=== PATIENT | female | born 1980 | race Caucasian/White ===

== ENCOUNTER 2021-08-14 06:53 | Inpatient (IN) | payer OTHER, SELFPAY ==
[2021-08-14] VITALS (10 sets, daily range): BP systolic 115–148; BP diastolic 68–83; PULSE 72–91; RESP 16–18; TEMP 36.5–37.3; O2SAT 98–99; BMI 25.2
--- NOTE | 2021-08-14 04:02 | NURSING ---
pandemic emergency documentation
--- NOTE | 2021-08-14 04:21 | HP.PCM.HOS_ITS ---
HPI - General General Date of Admission: 08/14/21 Date of Service: 08/14/21 Chief Complaint: Abdominal pain HPI Narrative RAD ELI, is a 40 F with previous medical history who presents to emergency department with a 3-week history of progressively worsening lower abdominal pain that radiates to her groin and rarely to her back. The pain is constant aching with intermittent stabbing pain. The pain increases with her menstruation. Of note patient is currently menstruating. Her previous menstruation was about 2 weeks ago. Associated with her symptoms is nausea; vomiting and diarrhea. Further, she has anorexia; fatigue; weakness; and some mild dyspnea anytime she stands up or sit down. At outside hospital patient was noted to have electrolyte derangements of hypokalemia and elevated creatinine that improved with IV hydration and potassium supplementation. Also she was given magnesium at outside hospital. Her lipase was elevated at 20,000. Patient was noted to have elevated QTC at outside hospital. Her Covid test came back to be positive as at outside hospital. CT of abdomen and pelvis showed pancreatitis with a pelvic mass. Patient reports that she has known of the pelvic mass for the past 2 years but she was waiting for Covid pandemic to be done to seek further care. Patient was transferred from [place] emergency department. Emergency department doctor discussed the case with CONE FORMER doctor computer numerical control machinist at [facility] who was prepared to see patient in consult. [facility] Medical History Kidney stones Pancreatitis Smoker Home Medications multivitamin 1 cap PO DAILY 08/14/21 [History Last Taken Unknown] Allergy/AdvReac Type Severity Reaction Status Date / Time sulfamethoxazole Allergy Other Verified 08/14/21 04:00 [From Bactrim] trimethoprim [From Bactrim] Allergy Other Verified 08/14/21 04:00 cefaclor [From Ceclor] AdvReac Hives Verified 08/14/21 04:00 Family History Other Heart disease Hypertension Surgical History (Updated 08/14/21 @ 04:[address] Keith Marroquin MD) H/O lumpectomy History of tonsillectomy Social History Smoking Status: Current every day smoker tobacco type: cigarettes ROS ROS Narrative Constitutional: Denies fever, chills, fatigue, anorexia and change in weight Eyes: Denies blurry vision, change in eye color, change in vision, discharge from eye(s), double vision, erythema, eye pain, loss of vision or other HEENT: Denies abnormal hearing, dysphagia, ear pain, epistaxis, headache(s), hearing loss, nasal congestion, nasal discharge, post nasal drip, sinus pressure, sore throat or other Cardiovascular: Denies chest pain or palpitations. Denies dyspnea on exertion, orthopnea and paroxysmal nocturnal dyspnea Respiratory/Chest: Denies cough, excessive phlegm production, shortness of breath with exertion and wheezing Gastrointestinal: Reports abdominal pain, nausea; vomiting and diarrhea. Reports melena. Denies dyspepsia, hematemesis, hematochezia. Genitourinary: Denies burning urination, difficulty urinating, dysuria, hematuria, nocturia, urinary frequency, urinary hesitancy, urinary incontinence, urinary urgency or other Musculoskeletal: Denies arthralgias, back pain, joint pain, joint stiffness, joint swelling, myalgias, neck pain or other Neurologic: Denies abnormal gait, abnormal speech, confusion, disequilibrium, dizziness, focal weakness, headache(s), numbness, paresthesias, seizure-like activity, seizures, syncope, tingling, tremor(s) or other Psychiatric: Denies anxiety, depression, homicidal ideation, suicidal ideation or other Endocrinology: Denies change in body appearance, cold intolerance, excessive sweating, heat intolerance, polydipsia, polyuria or other Hematologic/Lymphatic: Denies anemia, easy bleeding, easy bruising, lymphadenopathy or other Integumentary: Denies rashes Allergic/Immunologic: Denies rhinitis, hives, eczema, asthma or other Vital Signs Vital Signs Vital Signs: Weight Weight: 72.121 kg Body Mass Index (BMI) 25.2 Physical Exam Narrative Physical exam: General: Well-nourished, well-developed. Head: Normocephalic, atraumatic, no tenderness Eyes: PERRLA, EOMI ENT, no trauma, moist mucous membranes, no rhinorrhea Neck: Nontender, full range of motion, no spinal tenderness, deformities, step- off CVS: Regular rate and rhythm. S1-S2 present. No murmur, gallop or rub. Respiratory : clear to auscultation bilaterally, chest wall nontender, no wheezing Abdomen: Soft, nontender, nondistended, normal bowel sounds, no masses : Deferred Back: Nontender, no CVA tenderness, no midline spinal tenderness, deformities, step-offs Extremities: Nontender full range of motion, no trauma Skin: Normal color, no trauma, abrasions Neuro: Alert, oriented, cranial nerves II through XII grossly intact. Psychiatry: Normal mood. Normal affect. Not depressed. Not anxious. Assessment & Plan Assessment/Plan (1) Gastroenteritis: (2) Pancreatitis: QUALIFIERS: Acute pancreatitis complication: no infection or necrosis Chronicity: acute Pancreatitis type: other Qualified Code(s): K85.80 - Other acute pancreatitis without necrosis or infection (3) Hypokalemia: (4) JOSEPH (acute kidney injury): (5) Pelvic mass: (6) COVID-19: PLAN: Acute gastroenteritis Etiology unclear, rule out Covid as patient tested positive for Covid-19. Supportive treatment with IV fluids. Pancreatitis Patient with elevated lipase of [address] scan finding of acute pancreatitis. Received IV fluid at outside hospital. Lactated Ringer's ordered. Morphine for pain. Will check lipase and do ultrasound of gallbladder. N.p.o. for ultrasound. Hypokalemia Potassium was replaced at outside hospital. Originally reportedly potassium was 1.3 but it improved to 2.3. CMP ordered. Diarrhea with melena Enteropathogenic panel; Giardia lamblia antigen ordered; stool lactoferrin ordered. Supportive treatment with IV fluids. Occult stools ordered. JOSEPH Patient with elevated creatinine at outside hospital which improved with IV fluids. Lactated Ringer's ordered. Trend CMP. COVID-19 infection Patient not hypoxic. Clinical monitoring. Prolonged QT Patient with QT at outside hospital. Monitor on telemetry. Avoid QTC prolongation drugs. Trend CMP. Check magnesium. Pelvic mass CONE FORMER consult. Tobacco abuse Counseled Nicotine patch prescribed DVT prophylaxis: Subcutaneous heparin ordered Charges/Coding Visit Charges Inpatient E&M: 73368 Init Hosp L3
[2021-08-14] MEDS: Morphine 2 MG/ML Syringe IV ×6 (04:42→21:32)
[2021-08-14] MEDS: Lactated Ringers 1,000 ML 150 ML IV ×4 (04:45→21:32)
--- NOTE | 2021-08-14 04:47 | US_ITS ---
STUDY: ABDOMINAL ULTRASOUND - RIGHT UPPER QUADRANT REASON FOR VISIT: Female, 40 years old Pancreatitis -- Portable - Patient has covid TECHNIQUE: Ultrasound evaluation of the right upper quadrant was performed with real-time and static casillas-scale imaging. TECHNICAL QUALITY: Adequate. COMPARISON: None. FINDINGS: Liver: The liver is slightly enlarged and measures 18.7 cm. There is normal echogenicity of the liver. The bile ducts are mildly dilated. There is hepatic color flow. The direction of portal flow is hepatopetal. There is no demonstrated mass lesion. Gallbladder: There is a distended gallbladder. The gallbladder wall measures 2.8 mm. There is a positive sonographic Rodriguez''s sign. There is mild pericholecystic fluid. There are no gallstones. There is a 5 mm polyp. Common Bile Duct (C.B.D.): The common bile duct measures 3.2 mm. Pancreas: Normal size of the head, body and tail of the pancreas. There is increased echogenicity of the pancreas. There is no demonstrated pancreatic mass or cyst. Right Kidney: Normal size of the right kidney. The right kidney measures 12.1 cm x 5.9 cm x 5.1 cm. Normal renal cortex. The right cortex measures 1.6 cm. There is no demonstrated renal mass or cyst. There is mild hydronephrosis of the right kidney. I suspect 2 nonobstructive intrarenal calculi. The larger measures 5 mm. US/Gallbladder IMPRESSION: The gallbladder is distended. Minimal pericholecystic fluid. Small gallbladder polyp. No evidence of gallstones. Mild degree of dilated central intrahepatic biliary ducts. Electronically Signed: Gilbert Murcia MD at 14:03 EDT , Service support ,
[2021-08-14 07:51] LABS: Absolute Lymphocyte Count 0.81 X10^3/uL (0.83-4.51); Absolute Neutrophil Count 13.7 X10^3/uL (2.0-7.7); Basophil# 0.03 X10^3/uL; Basophil% 0.2 % (0-1); Eosinophil# 0.04 X10^3/uL; Eosinophils% 0.3 % (0-5); Hematocrit 30.8 % (37-47); Hemoglobin 11.5 g/dL (12.0-15.0); Lymphocyte # 0.81 X10^3/ul (0.83-4.51); Lymphocyte % 5.2 % (19-41); Mean Corp Hgb Conc 37.3 g/dL (32-36); Mean Corpuscular Hgb 30.8 pg (27.0-32.0); Mean Corpuscular Volume 82.6 fL (81-99); Mean Platelet Vol. 8.7 fl (6.2-12.0); Monocyte# 1.01 X10^3/uL; Monocyte% 6.4 % (0-10); NRBC Flagged by Analyzer 0 % (0-5); Neutrophil # 13.73 X10^3/uL (2.7-7.7); Neutrophil % 87.3 % (47-70); Platelet Count 417 K/mm3 (150-450); RBC Distribution Width CV 12.6 % (11.6-14.6); RBC Distribution Width SD 37.9 fl (35.1-43.9); Red Blood Count 3.73 M/mm3 (4.2-5.4); White Blood Count 15.7 K/mm3 (4.4-11.0)
[2021-08-14] MEDS: NYSTATIN 500,000 UNIT/5 ML UDC 500000 UNIT PO ×4 (08:22→21:32)
[2021-08-14] MEDS: 0.9% Saline Lock 10 ML Syringe IV ×3 (08:23→18:13)
[2021-08-14 08:30] LABS: ALB/GLOB Ratio 0.7 RATIO (0.9-2.4); AST(SGOT) 19 U/L (15-37); Alanine Aminotransfer ALT/SGPT 11 U/L (13-56); Albumin, Serum 2.5 g/dL (3.2-5.0); Alkaline Phosphatase 74 U/L (45-117); Anion Gap 13 (5-15); BUN 62 mg/dL (7-18); BUN/Creat Ratio 81.2 RATIO (10-20); Calcium,Total 7.2 mg/dL (8.5-10.1); Chloride 111 mmol/L (98-107); Cholesterol 68 mg/dL (200); Creatinine, Serum 0.76 mg/dL (0.55-1.02); EST Glomerular Filtration Rate 89 mL/min (>60); Est Glom Filt Rate - Afr Amer 107 mL/min (>60); Estimated Creatinine Clearance 92.11 ml/min; Globulin 3.7 g/dL (2.2-4.2); Glucose 69 mg/dL (74-106); High Density Lipoprotein 12 mg/dL; Potassium 2.3 mmol/L (3.5-5.1); Protein, Total 6.2 g/dL (6.4-8.2); Sodium Level 137 mmol/L (136-145); Triglycerides 142 mg/dL; Very Low Density Lipoprotein 28 mg/dL (5-40)
[2021-08-14] MEDS: Potassium Chloride 10mEq/100mL 10 MEQ/100 ML IV.SOLN. 100 MEQ IV BOLUS ×4 (10:27→15:01)
--- NOTE | 2021-08-14 10:28 | CASEMGMT ---
TRISH BAZAN assessment: Initial transition planning/care coordination assessment. TRISH BAZAN introduced self and role at [facility], pt voices understanding and consents to assessment. Pt is on room air in no distress and speaks in full sentences. Pt is A/Ox4 and answers all questions appropriately. Care providers, pharmacy, and demographics verified/updated. Presentation: Pt was direct admit from [place] ED for COVID and abd pain w/ known mass Admitting dx: Gastroenteritis, pancreatitis, COVID, abd mass x2 years PCP: Pt states does not have PCP, list provided Specialists: Pt states no specialists. [facility]erred [facility]acy: [facility] Insurance: MMO Prescription Benefit: MMO Living Will/HPOA: Pt does not have LW/HPOA and declines AD info. LNOK: Ector Bowling, sig other; Warren Patel, mother Living Arrangements: Pt states lives with Ector Bowling, sig other, in a home with stairs and states no concerns at home. Pt is independent with ADL's. Transportation: Pt drives self and states no transportation concerns. DME/HHC: Pt states no current DME or need for any further DME. Pt states no hx of HHC or SNF in the past. Pt states no concerns with going home at time of discharge. 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 Pt states smokes about a pack of cigarettes daily and rarely drinks ETOH. Pt states no further concerns/needs. CM to follow for any further discharge planning/needs. Advised pt to ask for CM if any further questions/concerns/needs arise, voices understanding. Pt Goal: Home Plan: [place] TRISH BAZAN
[2021-08-14 12:12] LABS: HIV - WCH Non-Reactive (Nonreactive)
--- NOTE | 2021-08-14 12:25 | PCM.PN.HOSP ---
Subjective Subjective Patient is a 40-year-old lady with known history of a pelvic mass for over 2 years. Who presented with a 3-week history of progressive lower abdominal pain with radiation to her back. Apparently did complain of nausea vomiting as well as diarrhea. CT of the abdomen obtained at an outside hospital did demonstrate a pelvic mass in addition to features consistent with pancreatitis. Her SARS-CoV-2 assay obtained in the ED came back positive admitted to regular nursing floor for further management Objective Data Objective Data Vital Signs: Vital Signs Temp Pulse Resp BP Pulse Ox 98.8 F 77 18 133/77 H 98 08/14/21 08:37 08/14/21 08:37 08/14/21 08:37 08/14/21 08:37 08/14/21 08:37 Oxygen Delivery Method Room Air Weight: 72.121 kg Body Mass Index (BMI) 25.2 Intake & Output: Intake and Output for Last 24 Hours 08/12/21 08/13/21 08/14/21 23:59 23:59 23:59 Intake Total 857.5 / 857.5 Balance 857.5 / 857.5 Lab / Micro Data Result Diagrams: 08/14/21 07:40 08/14/21 07:40 Labs: Laboratory Results - last 24 hr 08/14/21 07:40: HIV 1&2 Antibody Non-Reactive 08/14/21 07:40: WBC 15.7 H, RBC 3.73 L, Hgb 11.5 L, Hct 30.8 L, MCV 82.6, MCH 30.8, MCHC 37.3 H, RDW Std Deviation 37.9, RDW Coeff of Nick 12.6, Plt Count 417, MPV 8.7, Immature Gran % (Auto) 0.600, Neut % (Auto) 87.3 H, Lymph % (Auto) 5.2 L, [place] % (Auto) 6.4, Eos % (Auto) 0.3, Baso % (Auto) 0.2, Absolute Neuts (auto) 13.7 H, Absolute Lymphs (auto) 0.81 L, Nucleated RBC % 0 08/14/21 07:40: Sodium 137, Potassium 2.3 L*, Chloride 111 H, Carbon Dioxide 13.0 L, Anion Gap 13, BUN 62 H, Creatinine 0.76, Estim Creat Clear Calc 92.11, Est GFR (MDRD) Af Amer 107, Est GFR (MDRD) Non-Af 89, BUN/Creatinine Ratio 81.2 H, Glucose 69 L, Calcium 7.2 L, Total Bilirubin 0.50, AST 19, ALT 11 L, Alkaline Phosphatase 74, Total Protein 6.2 L, Albumin 2.5 L, Globulin 3.7, Albumin/Globulin Ratio 0.7 L, Triglycerides 142, Cholesterol 68, LDL Cholesterol 28, VLDL Cholesterol 28, HDL Cholesterol 12 L Physical Exam Narrative GENERAL: cooperative HEENT: Atraumatic; oral thrush EYES; Anicteric, Normal Conjunctiva NECK; supple, normal thyroid, RESPIRATORY: Diminished to auscultation CARDIOVASCULAR: Regular S1 S2, GI: soft, normoactive bowel sounds, : No Renal angle tenderness; EXTREMITIES: No edema, no clubbing, MUSCULOSKELETAL: no muscle waisting NEURO: Awake; no lateralizing signs. SKIN: No Rash PSYCH; Flat affect Assessment & Plan Assessment/Plan (1) Gastroenteritis: (2) Pancreatitis: QUALIFIERS: Acute pancreatitis complication: no infection or necrosis Chronicity: acute Pancreatitis type: other Qualified Code(s): K85.80 - Other acute pancreatitis without necrosis or infection (3) Hypokalemia: (4) JOSEPH (acute kidney injury): (5) Pelvic mass: (6) COVID-19: PLAN: Patient is a 40-year-old lady with known history of a pelvic mass for over 2 years. Who presented with a 3-week history of progressive lower abdominal pain with radiation to her back. Apparently did complain of nausea vomiting as well as diarrhea. CT of the abdomen obtained at an outside hospital did demonstrate a pelvic mass in addition to features consistent with pancreatitis. Her SARS-CoV-2 assay obtained in the ED came back positive admitted to regular nursing floor for further management 1. Acute viral gastroenteritis ?Suspected to be secondary to patient SARS-CoV-2 infection. Plan is to treat symptomatically. 2. SARS-CoV-2 infection -patient presented with gastroenteritis currently does not have any respiratory symptoms we will continue with monitoring 3. Acute pancreatitis ?Patient lipase levels greater than 3000. She also did have CT findings consistent with pancreatitis. Patient started on clear liquids in addition to pain management and PPI. Repeat lipase levels ordered. Also ordered ultrasound of the liver and gallbladder 4. Hypokalemia -Corrected per protocol 5. Pelvic mass ?Patient has no of the pelvic mass from her 2-year. She apparently told admitting physician she was waiting for Covid pandemic to be over prior to seeking care. Consult has subsequently been placed to [facility] [facility] [employer] 6. Prolonged QT ?Currently being monitored on telemetry 6. Tobacco dependence - Counseled on cessation, offered nicotine patch for tobacco cravings 7. Or candidiasis ?Patient has been started on nystatin swish and swallow 8. DVT prophylaxis ?SC heparin Advance planning; did discuss with the patient regarding advanced directives as well as CODE STATUS. Did explain the various scenarios involved ( FULL CODE, DNR CCA, DNR CCA with no intubation, and DNR CC and what each meant) patient elected to full code with CPR and intubation if warranted, order was placed. Time spent on discussion 18 minutes. Charges/Coding Visit Charges Inpatient E&M: 67258 Subs Hosp L3 Procedures Hospitalists Procedures: 85130 Advncd Care Plan 30 Min
[2021-08-14] MEDS: Potassium Chloride Oral Tablet 20 MEQ PO (16:29)
--- NOTE | 2021-08-14 22:50 | PCS.PANDOC ---
PANDEMIC DOCUMENTATION INITIATED: Date: 05/29/2021 Time: 190
[2021-08-15] VITALS (9 sets, daily range): BP systolic 114–130; BP diastolic 64–75; PULSE 71–98; RESP 16–18; TEMP 36.3–37.4; O2SAT 99
[2021-08-15] MEDS: Morphine 2 MG/ML Syringe IV ×8 (01:00→22:46)
[2021-08-15] MEDS: Lactated Ringers 1,000 ML 150 ML IV ×4 (04:08→22:46)
[2021-08-15] MEDS: 0.9% Saline Lock 10 ML Syringe IV ×4 (04:10→16:33)
[2021-08-15 06:39] LABS: Absolute Lymphocyte Count 0.78 X10^3/uL (0.83-4.51); Absolute Neutrophil Count 11.5 X10^3/uL (2.0-7.7); Basophil# 0.02 X10^3/uL; Basophil% 0.1 % (0-1); Eosinophil# 0.04 X10^3/uL; Eosinophils% 0.3 % (0-5); Hematocrit 26.3 % (37-47); Hemoglobin 9.3 g/dL (12.0-15.0); Lymphocyte # 0.78 X10^3/ul (0.83-4.51); Lymphocyte % 5.8 % (19-41); Mean Corp Hgb Conc 35.4 g/dL (32-36); Mean Corpuscular Hgb 30.6 pg (27.0-32.0); Mean Corpuscular Volume 86.5 fL (81-99); Monocyte# 1.12 X10^3/uL; Monocyte% 8.3 % (0-10); NRBC Flagged by Analyzer 0 % (0-5); Neutrophil # 11.49 X10^3/uL (2.7-7.7); Platelet Count 358 K/mm3 (150-450); RBC Distribution Width CV 13.3 % (11.6-14.6); Red Blood Count 3.04 M/mm3 (4.2-5.4); White Blood Count 13.5 K/mm3 (4.4-11.0)
[2021-08-15 07:15] LABS: ALB/GLOB Ratio 0.6 RATIO (0.9-2.4); AST(SGOT) 21 U/L (15-37); Alanine Aminotransfer ALT/SGPT 10 U/L (13-56); Albumin, Serum 2.1 g/dL (3.2-5.0); Alkaline Phosphatase 72 U/L (45-117); Anion Gap 5 (5-15); BUN 24 mg/dL (7-18); BUN/Creat Ratio 57.7 RATIO (10-20); Calcium,Total 8.5 mg/dL (8.5-10.1); Chloride 114 mmol/L (98-107); Creatinine, Serum 0.42 mg/dL (0.55-1.02); EST Glomerular Filtration Rate 179 mL/min (>60); Est Glom Filt Rate - Afr Amer 216 mL/min (>60); Estimated Creatinine Clearance 166.68 ml/min; Globulin 3.5 g/dL (2.2-4.2); Glucose 93 mg/dL (74-106); Magnesium 2.9 mg/dL (1.6-2.6); Potassium 2.7 mmol/L (3.5-5.1); Protein, Total 5.6 g/dL (6.4-8.2); Sodium Level 137 mmol/L (136-145)
--- NOTE | 2021-08-15 07:39 | PCM.PN.HOSP ---
Subjective Subjective Patient seen complains of epigastric discomfort. Did scale back her diet to clear liquids Objective Data Objective Data Vital Signs: Vital Signs Temp Pulse Resp BP Pulse Ox 99.0 F 71 18 114/64 99 08/15/21 03:14 08/15/21 06:38 08/15/21 03:14 08/15/21 03:14 08/15/21 03:14 Oxygen Delivery Method Room Air Weight: 72.121 kg Body Mass Index (BMI) 25.2 Intake & Output: Intake and Output for Last 24 Hours 08/13/21 08/14/21 08/15/21 23:59 23:59 23:59 Intake Total 3917.5 / 4217.5 1590 / 1590 Output Total 1500 / 1500 Balance 2417.5 / 2717.5 1590 / 1590 Lab / Micro Data Result Diagrams: 08/15/21 06:18 08/15/21 06:18 Labs: Laboratory Results - last 24 hr 08/14/21 07:40: HIV 1&2 Antibody Non-Reactive 08/14/21 07:40: WBC 15.7 H, RBC 3.73 L, Hgb 11.5 L, Hct 30.8 L, MCV 82.6, MCH 30.8, MCHC 37.3 H, RDW Std Deviation 37.9, RDW Coeff of Nick 12.6, Plt Count 417, MPV 8.7, Immature Gran % (Auto) 0.600, Neut % (Auto) 87.3 H, Lymph % (Auto) 5.2 L, Howard % (Auto) 6.4, Eos % (Auto) 0.3, Baso % (Auto) 0.2, Absolute Neuts (auto) 13.7 H, Absolute Lymphs (auto) 0.81 L, Nucleated RBC % 0 08/14/21 07:40: Sodium 137, Potassium 2.3 L*, Chloride 111 H, Carbon Dioxide 13.0 L, Anion Gap 13, BUN 62 H, Creatinine 0.76, Estim Creat Clear Calc 92.11, Est GFR (MDRD) Af Amer 107, Est GFR (MDRD) Non-Af 89, BUN/Creatinine Ratio 81.2 H, Glucose 69 L, Calcium 7.2 L, Total Bilirubin 0.50, AST 19, ALT 11 L, Alkaline Phosphatase 74, Total Protein 6.2 L, Albumin 2.5 L, Globulin 3.7, Albumin/Globulin Ratio 0.7 L, Triglycerides 142, Cholesterol 68, LDL Cholesterol 28, VLDL Cholesterol 28, HDL Cholesterol 12 L 08/15/21 06:18: Sodium 137, Potassium 2.7 L*, Chloride 114 H, Carbon Dioxide 18.0 L, Anion Gap 5, BUN 24 H, Creatinine 0.42 L, Estim Creat Clear Calc 166.68, Est GFR (MDRD) Af Amer 216, Est GFR (MDRD) Non-Af 179, BUN/Creatinine Ratio 57.7 H, Glucose 93, Calcium 8.5, Magnesium 2.9 H, Total Bilirubin 0.60, AST 21, ALT 10 L, Alkaline Phosphatase 72, Total Protein 5.6 L, Albumin 2.1 L, Globulin 3.5, Albumin/Globulin Ratio 0.6 L 08/15/21 06:18: WBC 13.5 H, RBC 3.04 L, Hgb 9.3 L, Hct 26.3 L, MCV 86.5, MCH 30.6, MCHC 35.4 D, RDW Std Deviation 41.0, RDW Coeff of Nick 13.3, Plt Count 358, MPV 9.0, Immature Gran % (Auto) 0.500, Neut % (Auto) 85.0 H, Lymph % (Auto) 5.8 L, Howard % (Auto) 8.3, Eos % (Auto) 0.3, Baso % (Auto) 0.1, Absolute Neuts (auto) 11.5 H, Absolute Lymphs (auto) 0.78 L, Nucleated RBC % 0 Radiography Diagnostic Testing: Radiology Impression Gallbladder Ultrasound 08/14/21 04:47 IMPRESSION: The gallbladder is distended. Minimal pericholecystic fluid. Small gallbladder polyp. No evidence of gallstones. Mild degree of dilated central intrahepatic biliary ducts. Electronically Signed: Gilbert Murcia MD at 14:03 EDT , Service support , Physical Exam Narrative GENERAL: cooperative HEENT: Atraumatic; oral thrush EYES; Anicteric, Normal Conjunctiva NECK; supple, normal thyroid, RESPIRATORY: Diminished to auscultation CARDIOVASCULAR: Regular S1 S2, GI: soft, epigastric discomfort : No Renal angle tenderness; EXTREMITIES: No edema, no clubbing, MUSCULOSKELETAL: no muscle waisting NEURO: Awake; no lateralizing signs. SKIN: No Rash PSYCH; Flat affect Assessment & Plan Assessment/Plan (1) Gastroenteritis: (2) Pancreatitis: QUALIFIERS: Acute pancreatitis complication: no infection or necrosis Chronicity: acute Pancreatitis type: other Qualified Code(s): K85.80 - Other acute pancreatitis without necrosis or infection (3) Hypokalemia: (4) JOSEPH (acute kidney injury): (5) Pelvic mass: (6) COVID-19: PLAN: Patient is a 40-year-old lady with known history of a pelvic mass for over 2 years. Who presented with a 3-week history of progressive lower abdominal pain with radiation to her back. Apparently did complain of nausea vomiting as well as diarrhea. CT of the abdomen obtained at an outside hospital did demonstrate a pelvic mass in addition to features consistent with pancreatitis. Her SARS-CoV-2 assay obtained in the ED came back positive admitted to regular nursing floor for further management 1. Acute viral gastroenteritis ?Suspected to be secondary to patient SARS-CoV-2 infection. Plan is to treat symptomatically. 2. SARS-CoV-2 infection -patient presented with gastroenteritis currently does not have any respiratory symptoms we will continue with monitoring 3. Acute pancreatitis ?Patient lipase levels greater than 3000. She also did have CT findings consistent with pancreatitis. Patient started on clear liquids in addition to pain management and PPI. Repeat lipase levels ordered. Also ordered ultrasound of the liver and gallbladder -08/15/2021; ultrasound of the gallbladder obtained demonstrated The gallbladder is distended. Minimal pericholecystic fluid. Small gallbladder polyp. No evidence of gallstones. Mild degree of dilated central intrahepatic biliary ducts. Patient still remains significantly symptomatic did adjust patient's diet 4. Hypokalemia -Corrected per protocol -08/15/2021; patient potassium still remains low at 2.7 additional replacement added 5. Pelvic mass ?Patient has no of the pelvic mass from her 2-year. She apparently told admitting physician she was waiting for Covid pandemic to be over prior to seeking care. Consult has subsequently been placed to [facility] -08/15/2021; case was discussed with Dr. Little with [facility] with [facility] plan is for patient to follow-up with OB as outpatient with pelvic ultrasound 2 weeks after her discharge 6. Prolonged QT ?Currently being monitored on telemetry 6. Tobacco dependence - Counseled on cessation, offered nicotine patch for tobacco cravings 7. Or candidiasis ?Patient has been started on nystatin swish and swallow 8. DVT prophylaxis ?SC heparin Charges/Coding Visit Charges Inpatient E&M: 36514 Subs Hosp L3
[2021-08-15] MEDS: Potassium Chloride 10mEq/100mL 10 MEQ/100 ML IV.SOLN. 100 MEQ IV BOLUS ×4 (10:24→14:43)
[2021-08-15] MEDS: Potassium Chloride Oral Tablet 20 MEQ PO ×2 (10:28→16:32)
[2021-08-15] MEDS: Potassium Chloride Oral Tablet 20 MEQ 40 MEQ PO (10:28)
[2021-08-15] MEDS: NYSTATIN 500,000 UNIT/5 ML UDC 500000 UNIT PO ×4 (10:29→21:53)
[2021-08-16] VITALS (12 sets, daily range): BP systolic 124–135; BP diastolic 79–86; PULSE 81–101; RESP 15–18; TEMP 36.4–37.4; O2SAT 98–100
[2021-08-16] MEDS: Morphine 2 MG/ML Syringe IV ×3 (01:49→08:49)
[2021-08-16] MEDS: 0.9% Saline Lock 10 ML Syringe IV ×3 (01:49→16:20)
[2021-08-16] MEDS: Lactated Ringers 1,000 ML 150 ML IV ×3 (05:02→22:35)
[2021-08-16 07:54] LABS: Absolute Lymphocyte Count 0.97 X10^3/uL (0.83-4.51); Absolute Neutrophil Count 12.8 X10^3/uL (2.0-7.7); Basophil# 0.03 X10^3/uL; Basophil% 0.2 % (0-1); Eosinophil# 0.08 X10^3/uL; Eosinophils% 0.5 % (0-5); Hematocrit 24.8 % (37-47); Hemoglobin 8.9 g/dL (12.0-15.0); Lymphocyte # 0.97 X10^3/ul (0.83-4.51); Lymphocyte % 6.5 % (19-41); Mean Corp Hgb Conc 35.9 g/dL (32-36); Mean Corpuscular Hgb 30.4 pg (27.0-32.0); Mean Corpuscular Volume 84.6 fL (81-99); Mean Platelet Vol. 9.1 fl (6.2-12.0); Monocyte# 1.11 X10^3/uL; Monocyte% 7.4 % (0-10); NRBC Flagged by Analyzer 0 % (0-5); Neutrophil # 12.75 X10^3/uL (2.7-7.7); Neutrophil % 84.8 % (47-70); Platelet Count 395 K/mm3 (150-450); RBC Distribution Width CV 13.3 % (11.6-14.6); RBC Distribution Width SD 39.1 fl (35.1-43.9); Red Blood Count 2.93 M/mm3 (4.2-5.4)
[2021-08-16 08:29] LABS: ALB/GLOB Ratio 0.6 RATIO (0.9-2.4); AST(SGOT) 20 U/L (15-37); Alanine Aminotransfer ALT/SGPT 11 U/L (13-56); Albumin, Serum 2.1 g/dL (3.2-5.0); Alkaline Phosphatase 78 U/L (45-117); Anion Gap 5 (5-15); BUN 8 mg/dL (7-18); BUN/Creat Ratio 20.2 RATIO (10-20); Calcium,Total 8.9 mg/dL (8.5-10.1); Chloride 112 mmol/L (98-107); EST Glomerular Filtration Rate 189 mL/min (>60); Est Glom Filt Rate - Afr Amer 229 mL/min (>60); Estimated Creatinine Clearance 175.02 ml/min; Globulin 3.8 g/dL (2.2-4.2); Glucose 94 mg/dL (74-106); Potassium 3.3 mmol/L (3.5-5.1); Protein, Total 5.9 g/dL (6.4-8.2); Sodium Level 138 mmol/L (136-145)
[2021-08-16] MEDS: Potassium Chloride Oral Tablet 20 MEQ PO ×2 (08:49→17:52)
[2021-08-16] MEDS: NYSTATIN 500,000 UNIT/5 ML UDC 500000 UNIT PO ×4 (08:49→20:49)
[2021-08-16 10:32] LABS: Lipase 1051 U/L (73-393)
--- NOTE | 2021-08-16 11:16 | PN.HOSP_ITS ---
Subjective Subjective Patient seen complaining of abdominal discomfort. Adjusted pain meds. Potassium up to 3.3. Hemoglobin down to 8.9 Objective Data Objective Data Vital Signs: Vital Signs Temp Pulse Resp BP Pulse Ox 98.3 F 89 18 129/83 H 99 08/16/21 08:58 08/16/21 08:58 08/16/21 08:58 08/16/21 08:58 08/16/21 08:58 Oxygen Delivery Method Room Air Weight: 72.121 kg Body Mass Index (BMI) 25.2 Intake & Output: Intake and Output for Last 24 Hours 08/14/21 08/15/21 08/16/21 23:59 23:59 23:59 Intake Total 3917.5 / 4217.5 5505.0 / 5905.0 1580 / 1580 Output Total 1500 / 1500 Balance 2417.5 / 2717.5 5505.0 / 5905.0 1580 / 1580 Lab / Micro Data Result Diagrams: 08/16/21 07:10 08/16/21 07:10 Labs: Laboratory Results - last 24 hr 08/16/21 07:10: WBC 15.0 H, RBC 2.93 L, Hgb 8.9 L, Hct 24.8 L, MCV 84.6, MCH 30.4, MCHC 35.9, RDW Std Deviation 39.1, RDW Coeff of Nick 13.3, Plt Count 395, MPV 9.1, Immature Gran % (Auto) 0.600, Neut % (Auto) 84.8 H, Lymph % (Auto) 6.5 L, [place] % (Auto) 7.4, Eos % (Auto) 0.5, Baso % (Auto) 0.2, Absolute Neuts (auto) 12.8 H, Absolute Lymphs (auto) 0.97, Nucleated RBC % 0 08/16/21 07:10: Sodium 138, Potassium 3.3 L, Chloride 112 H, Carbon Dioxide 21.0, Anion Gap 5, BUN 8, Creatinine 0.40 L, Estim Creat Clear Calc 175.02, Est GFR (MDRD) Af Amer 229, Est GFR (MDRD) Non-Af 189, BUN/Creatinine Ratio 20.2 H, Glucose 94, Calcium 8.9, Total Bilirubin 0.70, AST 20, ALT 11 L, Alkaline Phosphatase 78, Total Protein 5.9 L, Albumin 2.1 L, Globulin 3.8, A lbumin/Globulin Ratio 0.6 L 08/16/21 07:10: Lipase 1051 H Physical Exam Narrative GENERAL: cooperative HEENT: Atraumatic; oral thrush EYES; Anicteric, Normal Conjunctiva NECK; supple, normal thyroid, RESPIRATORY: Diminished to auscultation CARDIOVASCULAR: Regular S1 S2, GI: soft, epigastric discomfort : No Renal angle tenderness; EXTREMITIES: No edema, no clubbing, MUSCULOSKELETAL: no muscle waisting NEURO: Awake; no lateralizing signs. SKIN: No Rash PSYCH; Flat affect Assessment & Plan Assessment/Plan (1) Gastroenteritis: (2) Pancreatitis: QUALIFIERS: Chronicity: acute Pancreatitis type: other Acute pancreatitis complication: no infection or necrosis Qualified Code(s): K85.80 - Other acute pancreatitis without necrosis or infection (3) Hypokalemia: (4) JOSEPH (acute kidney injury): (5) Pelvic mass: (6) COVID-19: PLAN: Patient is a 40-year-old lady with known history of a pelvic mass for over 2 years. Who presented with a 3-week history of progressive lower abdominal pain with radiation to her back. Apparently did complain of nausea vomiting as well as diarrhea. CT of the abdomen obtained at an outside hospital did demonstrate a pelvic mass in addition to features consistent with pancreatitis. Her SARS-CoV-2 assay obtained in the ED came back positive admitted to regular nursing floor for further management 1. Acute viral gastroenteritis ?Suspected to be secondary to patient SARS-CoV-2 infection. Plan is to treat symptomatically. 2. SARS-CoV-2 infection -patient presented with gastroenteritis currently does not have any respiratory symptoms we will continue with monitoring -08/16/2021; patient not requiring any oxygen 3. Acute pancreatitis ?Patient lipase levels greater than 3000. She also did have CT findings consistent with pancreatitis. Patient started on clear liquids in addition to pain management and PPI. Repeat lipase levels ordered. Also ordered ultrasound of the liver and gallbladder -08/15/2021; ultrasound of the gallbladder obtained demonstrated The gallbladder is distended. Minimal pericholecystic fluid. Small gallbladder polyp. No evidence of gallstones. Mild degree of dilated central intrahepatic biliary ducts. Patient still remains significantly symptomatic did adjust patient's diet -08/16/2021; patient still has significant abdominal pain adjusted pain meds 4. Hypokalemia -Corrected per protocol -08/15/2021; patient potassium still remains low at 2.7 additional replacement added -08/16/2021; potassium up to 3.3 5. Pelvic mass ?Patient has no of the pelvic mass from her 2-year. She apparently told admitting physician she was waiting for Covid pandemic to be over prior to seeking care. Consult has subsequently been placed to ICE SCULPTOR -08/15/2021; case was discussed with Dr. Little with ICE SCULPTOR with [facility] plan is for patient to follow-up with OB as outpatient with pelvic ultrasound 2 weeks after her discharge 6. Prolonged QT ?Currently being monitored on telemetry 6. Tobacco dependence - Counseled on cessation, offered nicotine patch for tobacco cravings 7. Or candidiasis ?Patient has been started on nystatin swish and swallow 8. DVT prophylaxis ?SC heparin 9. Anemia - Secondary to chronic disorder monitoring H&H and transfuse if patient becomes symptomatic or hemoglobin falls below 7 Charges/Coding Visit Charges Inpatient E&M: 28239 Subs Hosp L3
[2021-08-16] MEDS: HYDROmorphone 1 MG/ML Syringe IV ×3 (11:55→20:48)
[2021-08-16] MEDS: Potassium Chloride Oral Tablet 20 MEQ 40 MEQ PO (11:56)
--- NOTE | 2021-08-16 13:55 | CT_ITS ---
STUDY: CT ABDOMEN AND PELVIS WITH CONTRAST REASON FOR EXAM: Female, 40 years old. Pancreatitis. Nausea and vomiting. RADIATION DOSAGE (If Supplied By Facility): CTDIvol = ( 11.49 ) mGy, DLP = ( 858.80 ) mGycm TECHNIQUE: Transaxial images were obtained from the dome of the diaphragm to the symphysis pubis without oral contrast. IV 100mL Isovue-300 was administered. Sagittal and coronal images were reconstructed. Individualized dose optimization techniques were used for this CT. COMPARISON: None. FINDINGS: Tiny left pleural effusion with mild degree of left basilar atelectasis. The visualized portions of the heart are within normal limits. Normal liver. Normal gallbladder and extrahepatic biliary system. Normal spleen. There is diffuse enlargement of the pancreas with conrad-pancreatic edema suggesting acute pancreatitis. Normal bilateral adrenal glands. There is a 4 mm nonobstructive calculus in the upper pole calyx of the right kidney. 3 mm nonobstructive calculus in the upper pole calyx of the left kidney. Normal visualized stomach. Normal small intestine. Normal colon. The appendix is visualized and appears normal. There is scattered atherosclerotic calcification of the abdominal aorta, without a demonstrated aneurysm. Normal inferior vena cava. There is borderline retroperitoneal lymphadenopathy with enlarged nodes no greater than 10mm in the short axis diameter. There is a distended urinary bladder. Heterogeneous enlargement of the uterus suggestive of an enlarged fibroid uterus. There is a 2.5 cm x 2.9 cm cyst in the left ovary. Normal abdominal wall. Normal osseous structures. CT/Abdomen/Pelvis WITH Contrast IMPRESSION: Findings in keeping with a noncomplicated acute pancreatitis. Distended urinary bladder. Enlarged heterogeneous uterus suggestive of a fibroid uterus. Electronically Signed: Gilbert Murcia MD at 14:26 EDT , Service support ,
[2021-08-17] VITALS (8 sets, daily range): BP systolic 117–144; BP diastolic 71–82; PULSE 81–103; RESP 14–16; TEMP 37.1–37.7; O2SAT 98–100
[2021-08-17] MEDS: HYDROmorphone 1 MG/ML Syringe IV ×6 (01:40→21:04)
[2021-08-17] MEDS: Lactated Ringers 1,000 ML 150 ML IV ×2 (05:55→11:57)
[2021-08-17 06:25] LABS: Absolute Neutrophil Count 9.3 X10^3/uL (2.0-7.7); Basophil# 0.02 X10^3/uL; Basophil% 0.2 % (0-1); Eosinophil# 0.13 X10^3/uL; Eosinophils% 1.1 % (0-5); Hematocrit 21.6 % (37-47); Hemoglobin 7.6 g/dL (12.0-15.0); Mean Corp Hgb Conc 35.2 g/dL (32-36); Mean Corpuscular Hgb 31.3 pg (27.0-32.0); Mean Corpuscular Volume 88.9 fL (81-99); Mean Platelet Vol. 8.4 fl (6.2-12.0); Monocyte# 0.92 X10^3/uL; Monocyte% 8.1 % (0-10); NRBC Flagged by Analyzer 0 % (0-5); Neutrophil # 9.29 X10^3/uL (2.7-7.7); Neutrophil % 82.2 % (47-70); Platelet Count 300 K/mm3 (150-450); RBC Distribution Width CV 14.4 % (11.6-14.6); RBC Distribution Width SD 44.9 fl (35.1-43.9); Red Blood Count 2.43 M/mm3 (4.2-5.4); White Blood Count 11.3 K/mm3 (4.4-11.0)
[2021-08-17 06:58] LABS: ALB/GLOB Ratio 0.5 RATIO (0.9-2.4); AST(SGOT) 18 U/L (15-37); Alanine Aminotransfer ALT/SGPT 12 U/L (13-56); Albumin, Serum 1.7 g/dL (3.2-5.0); Alkaline Phosphatase 66 U/L (45-117); Anion Gap 6 (5-15); BUN 4 mg/dL (7-18); BUN/Creat Ratio 12.9 RATIO (10-20); Calcium,Total 8.5 mg/dL (8.5-10.1); Chloride 109 mmol/L (98-107); Creatinine, Serum 0.31 mg/dL (0.55-1.02); EST Glomerular Filtration Rate 250 mL/min (>60); Est Glom Filt Rate - Afr Amer 303 mL/min (>60); Estimated Creatinine Clearance 223.57 ml/min; Globulin 3.7 g/dL (2.2-4.2); Glucose 97 mg/dL (74-106); Potassium 3.7 mmol/L (3.5-5.1); Protein, Total 5.4 g/dL (6.4-8.2); Sodium Level 137 mmol/L (136-145)
[2021-08-17] MEDS: Potassium Chloride Oral Tablet 20 MEQ PO ×2 (09:54→17:14)
[2021-08-17] MEDS: NYSTATIN 500,000 UNIT/5 ML UDC 500000 UNIT PO ×4 (09:54→21:04)
--- NOTE | 2021-08-17 11:43 | PN.HOSP_ITS ---
Subjective Subjective Patient seen abdominal pain improving somewhat. Currently on Dilaudid. Plan is advance patient's diet. Hemoglobin however down to 7.6 Objective Data Objective Data Vital Signs: Vital Signs Temp Pulse Resp BP Pulse Ox 98.8 F 103 H 16 120/76 100 08/17/21 09:49 08/17/21 09:49 08/17/21 09:49 08/17/21 09:49 08/17/21 09:49 Oxygen Delivery Method Room Air Weight: 72.121 kg Body Mass Index (BMI) 25.2 Intake & Output: Intake and Output for Last 24 Hours 08/15/21 08/16/21 08/17/21 23:59 23:59 23:59 Intake Total 5505.0 / 5905.0 5020 / 5020 1000 / 1000 Balance 5505.0 / 5905.0 5020 / 5020 1000 / 1000 Lab / Micro Data Result Diagrams: 08/17/21 06:15 08/17/21 06:15 Labs: Laboratory Results - last 24 hr 08/17/21 06:15: WBC 11.3 H, RBC 2.43 L, Hgb 7.6 L, Hct 21.6 L, MCV 88.9 D, MCH 31.3, MCHC 35.2, RDW Std Deviation 44.9 H, RDW Coeff of Nick 14.4, Plt Count 300, MPV 8.4, Immature Gran % (Auto) 0.400, Neut % (Auto) 82.2 H, Lymph % (Auto) 8.0 L, [place] % (Auto) 8.1, Eos % (Auto) 1.1, Baso % (Auto) 0.2, Absolute Neuts (auto) 9.3 H, Absolute Lymphs (auto) 0.90, Nucleated RBC % 0 08/17/21 06:15: Sodium 137, Potassium 3.7, Chloride 109 H, Carbon Dioxide 22.0, Anion Gap 6, BUN 4 L, Creatinine 0.31 L, Estim Creat Clear Calc 223.57, Est GFR (MDRD) Af Amer 303, Est GFR (MDRD) Non-Af 250, BUN/Creatinine Ratio 12.9, Glucose 97, Calcium 8.5, Total Bilirubin 0.40, AST 18, ALT 12 L, Alkaline Phosphatase 66, Total Protein 5.4 L, Albumin 1.7 L, Globulin 3.7, Albumin/Globulin Ratio 0.5 L Radiography Diagnostic Testing: Radiology Impression Abdomen/Pelvis CT 08/16/21 13:55 IMPRESSION: Findings in keeping with a noncomplicated acute pancreatitis. Distended urinary bladder. Enlarged heterogeneous uterus suggestive of a fibroid uterus. Electronically Signed: Gilbert Murcia MD at 14:26 EDT , Service support , Physical Exam Narrative GENERAL: cooperative HEENT: Atraumatic; oral thrush EYES; Anicteric, Normal Conjunctiva NECK; supple, normal thyroid, RESPIRATORY: Diminished to auscultation CARDIOVASCULAR: Regular S1 S2, GI: soft, epigastric discomfort : No Renal angle tenderness; EXTREMITIES: No edema, no clubbing, MUSCULOSKELETAL: no muscle waisting NEURO: Awake; no lateralizing signs. SKIN: No Rash PSYCH; Flat affect Assessment & Plan Assessment/Plan (1) Gastroenteritis: (2) Pancreatitis: QUALIFIERS: Chronicity: acute Pancreatitis type: other Acute pancreatitis complication: no infection or necrosis Qualified Code(s): K85.80 - Other acute pancreatitis without necrosis or infection (3) Hypokalemia: (4) JOSEPH (acute kidney injury): (5) Pelvic mass: (6) COVID-19: PLAN: Patient is a 40-year-old lady with known history of a pelvic mass for over 2 years. Who presented with a 3-week history of progressive lower abdominal pain with radiation to her back. Apparently did complain of nausea vomiting as well as diarrhea. CT of the abdomen obtained at an outside hospital did demonstrate a pelvic mass in addition to features consistent with pancreatitis. Her SARS-CoV-2 assay obtained in the ED came back positive admitted to regular nursing floor for further management 1. Acute viral gastroenteritis ?Suspected to be secondary to patient SARS-CoV-2 infection. Plan is to treat symptomatically. ?08/17/2021 acute viral gastroenteritis resolved 2. SARS-CoV-2 infection -patient presented with gastroenteritis currently does not have any respiratory symptoms we will continue with monitoring -08/16/2021; patient not requiring any oxygen 3. Acute pancreatitis ?Patient lipase levels greater than 3000. She also did have CT findings consistent with pancreatitis. Patient started on clear liquids in addition to pain management and PPI. Repeat lipase levels ordered. Also ordered ultrasound of the liver and gallbladder -08/15/2021; ultrasound of the gallbladder obtained demonstrated The gallbladder is distended. Minimal pericholecystic fluid. Small gallbladder polyp. No evidence of gallstones. Mild degree of dilated central intrahepatic biliary ducts. Patient still remains significantly symptomatic did adjust patient's diet -08/16/2021; patient still has significant abdominal pain adjusted pain meds -08/17/2021; patient still requiring significant amount of pain medication. Plan is advance diet as tolerated 4. Hypokalemia -Corrected per protocol -08/15/2021; patient potassium still remains low at 2.7 additional replacement added -08/16/2021; potassium up to 3.3 ?08/17/2021. Potassium up to 3.7 5. Pelvic mass ?Patient has no of the pelvic mass from her 2-year. She apparently told admitting physician she was waiting for Covid pandemic to be over prior to seeking care. Consult has subsequently been placed to NANOTECHNOLOGY TECHNICIAN -08/15/2021; case was discussed with Dr. Little with NANOTECHNOLOGY TECHNICIAN with [facility] plan is for patient to follow-up with OB as outpatient with pelvic ultrasound 2 weeks after her discharge 6. Prolonged QT ?Currently being monitored on telemetry 6. Tobacco dependence - Counseled on cessation, offered nicotine patch for tobacco cravings 7. Or candidiasis ?Patient has been started on nystatin swish and swallow 8. DVT prophylaxis ?SC heparin 9. Anemia - Secondary to chronic disorder monitoring H&H and transfuse if patient becomes symptomatic or hemoglobin falls below 7 ?08/17/2021. Further drop in patient hemoglobin level dropping to 7.6 (hemoglobin on admission was 11.5) did undertake iron studies (iron level ferritin level TIBC reticulocyte count as well as B12 levels) Charges/Coding Visit Charges Inpatient E&M: 90667 Subs Hosp L3
[2021-08-17 12:16] LABS: Ferritin 180 ng/mL (8-252); Iron 15 ug/dL (50-170); Iron Binding Capacity,Total 141 ug/dL (250-450); PERCENT IRON SATURATION 10.6 % (15.0-55.0); Platelet Count 335 K/mm3 (150-450); RET-HE 33.2 pg (30-35); Reticulocyte Count 2.22 % (0.5-1.5)
[2021-08-17 14:03] LABS: Vitamin B12 418 pg/mL (211-911)
[2021-08-17] MEDS: Sodium Ferric Gluconat 250 MG in 0.9% Normal Saline 250 ML 135 MG IV (14:46)
--- NOTE | 2021-08-17 15:19 | VDLE_ITS ---
Reason For Study: swelling, covid RIGHT LEFT GSV is normal. GSV is normal. CFV is compressible. CFV is compressible. FV is compressible. FV is compressible. Pop V is compressible. Pop V is compressible. T/P Trunk is compressible. T/P Trunk is compressible. PTV is compressible. PTV is compressible. RT PerV is compressible. LT PerV is compressible. Procedure This is a venous duplex using B-mode, color flow and spectral Doppler. Exam performed portable in patient room. The exam was abbreviated due to the COVID 19 protocol. The exam was diagnostic. A preliminary report was called and/or faxed to PCU charge. VL/Venous Duplex US - [place] Extrem Interpretation Summary No evidence for acute deep venous thrombosis bilateral lower extremities with p atent and compressible bilateral great saphenous veins. Abreviated Covid 19 protocol Ordering Physician: Julian Swift Performed By: Tab Razo RVT
[2021-08-18] VITALS (8 sets, daily range): BP systolic 126–144; BP diastolic 80–87; PULSE 69–97; RESP 14–18; TEMP 37.4–37.9; O2SAT 97–99
[2021-08-18] MEDS: HYDROmorphone 1 MG/ML Syringe IV ×2 (00:29→04:42)
[2021-08-18] MEDS: Polyethylene Glycol 3350 17 GM PACKET PO (04:40)
[2021-08-18] MEDS: 0.9% Saline Lock 10 ML Syringe IV (04:46)
[2021-08-18 08:33] LABS: Absolute Lymphocyte Count 0.92 X10^3/uL (0.83-4.51); Absolute Neutrophil Count 6.1 X10^3/uL (2.0-7.7); Basophil# 0.02 X10^3/uL; Basophil% 0.3 % (0-1); Eosinophil# 0.17 X10^3/uL; Eosinophils% 2.1 % (0-5); Hematocrit 22.7 % (37-47); Hemoglobin 7.9 g/dL (12.0-15.0); Lymphocyte # 0.92 X10^3/ul (0.83-4.51); Lymphocyte % 11.6 % (19-41); Mean Corp Hgb Conc 34.8 g/dL (32-36); Mean Corpuscular Hgb 31.2 pg (27.0-32.0); Mean Corpuscular Volume 89.7 fL (81-99); Mean Platelet Vol. 8.2 fl (6.2-12.0); Monocyte# 0.72 X10^3/uL; Monocyte% 9.1 % (0-10); NRBC Flagged by Analyzer 0 % (0-5); Neutrophil # 6.07 X10^3/uL (2.7-7.7); Neutrophil % 76.3 % (47-70); Platelet Count 291 K/mm3 (150-450); RBC Distribution Width CV 14.7 % (11.6-14.6); RBC Distribution Width SD 46.6 fl (35.1-43.9); Red Blood Count 2.53 M/mm3 (4.2-5.4)
[2021-08-18] MEDS: Potassium Chloride Oral Tablet 20 MEQ PO ×2 (08:50→18:00)
[2021-08-18] MEDS: NYSTATIN 500,000 UNIT/5 ML UDC 500000 UNIT PO ×4 (08:50→22:48)
[2021-08-18] MEDS: oxyCODONE 5 MG Tablet PO ×4 (08:51→22:53)
--- NOTE | 2021-08-18 09:05 | PCM.PN.HOSP ---
Subjective Subjective Patient seen overall pain much improved. Plan is for possible discharge pending patient lab work. Did discontinue patient isolation apparently has had symptoms mainly GI for over 2 weeks Objective Data Objective Data Vital Signs: Vital Signs Temp Pulse Resp BP Pulse Ox 99.6 F H 86 14 129/80 H 98 08/18/21 08:47 08/18/21 08:47 08/18/21 08:47 08/18/21 08:47 08/18/21 08:47 Oxygen Delivery Method Room Air Weight: 72.121 kg Body Mass Index (BMI) 25.2 Intake & Output: Intake and Output for Last 24 Hours 08/16/21 08/17/21 08/18/21 23:59 23:59 23:59 Intake Total 5020 / 5020 2602.5 / 3002.5 880 / 880 Balance 5020 / 5020 2602.5 / 3002.5 880 / 880 Lab / Micro Data Result Diagrams: 08/18/21 08:20 08/17/21 06:15 Labs: Laboratory Results - last 24 hr 08/17/21 06:15: Retic Count 2.22 H, Immature Retic Fraction 19.30 H, Retic Hgb Equivalent 33.2 08/17/21 06:15: Iron 15 L, TIBC 141 L, Iron Saturation 10.6 L, Ferritin 180 08/17/21 12:15: Vitamin B12 418 08/18/21 08:20: WBC 8.0, RBC 2.53 L, Hgb 7.9 L, Hct 22.7 L, MCV 89.7, MCH 31.2, MCHC 34.8, RDW Std Deviation 46.6 H, RDW Coeff of Nick 14.7 H, Plt Count 291, MPV 8.2, Immature Gran % (Auto) 0.600, Neut % (Auto) 76.3 H, Lymph % (Auto) 11.6 L, [place] % (Auto) 9.1, Eos % (Auto) 2.1, Baso % (Auto) 0.3, Absolute Neuts (auto) 6.1, Absolute Lymphs (auto) 0.92, Nucleated RBC % 0 Radiography Diagnostic Testing: Radiology Impression Venous Doppler Study 08/17/21 15:19 Interpretation Summary No evidence for acute deep venous thrombosis bilateral lower extremities with patent and compressible bilateral great saphenous veins. Abreviated Covid 19 protocol Ordering Physician: Julian Swift Performed By: Tab Razo RVT Physical Exam Narrative GENERAL: cooperative HEENT: Atraumatic; oral thrush EYES; Anicteric, Normal Conjunctiva NECK; supple, normal thyroid, RESPIRATORY: Diminished to auscultation CARDIOVASCULAR: Regular S1 S2, GI: soft, epigastric discomfort : No Renal angle tenderness; EXTREMITIES: No edema, no clubbing, MUSCULOSKELETAL: no muscle waisting NEURO: Awake; no lateralizing signs. SKIN: No Rash PSYCH; Flat affect Assessment & Plan Assessment/Plan (1) Gastroenteritis: (2) Pancreatitis: QUALIFIERS: Chronicity: acute Pancreatitis type: other Acute pancreatitis complication: no infection or necrosis Qualified Code(s): K85.80 - Other acute pancreatitis without necrosis or infection (3) Hypokalemia: (4) JOSEPH (acute kidney injury): (5) Pelvic mass: (6) COVID-19: PLAN: Patient is a 40-year-old lady with known history of a pelvic mass for over 2 years. Who presented with a 3-week history of progressive lower abdominal pain with radiation to her back. Apparently did complain of nausea vomiting as well as diarrhea. CT of the abdomen obtained at an outside hospital did demonstrate a pelvic mass in addition to features consistent with pancreatitis. Her SARS-CoV-2 assay obtained in the ED came back positive admitted to regular nursing floor for further management 1. Acute viral gastroenteritis ?Suspected to be secondary to patient SARS-CoV-2 infection. Plan is to treat symptomatically. ?08/17/2021 acute viral gastroenteritis resolved 2. SARS-CoV-2 infection -patient presented with gastroenteritis currently does not have any respiratory symptoms we will continue with monitoring -08/16/2021; patient not requiring any oxygen 3. Acute pancreatitis ?Patient lipase levels greater than 3000. She also did have CT findings consistent with pancreatitis. Patient started on clear liquids in addition to pain management and PPI. Repeat lipase levels ordered. Also ordered ultrasound of the liver and gallbladder -08/15/2021; ultrasound of the gallbladder obtained demonstrated The gallbladder is distended. Minimal pericholecystic fluid. Small gallbladder polyp. No evidence of gallstones. Mild degree of dilated central intrahepatic biliary ducts. Patient still remains significantly symptomatic did adjust patient's diet -08/16/2021; patient still has significant abdominal pain adjusted pain meds -08/17/2021; patient still requiring significant amount of pain medication. Plan is advance diet as tolerated 4. Hypokalemia -Corrected per protocol -08/15/2021; patient potassium still remains low at 2.7 additional replacement added -08/16/2021; potassium up to 3.3 ?08/17/2021. Potassium up to 3.7 5. Pelvic mass ?Patient has no of the pelvic mass from her 2-year. She apparently told admitting physician she was waiting for Covid pandemic to be over prior to seeking care. Consult has subsequently been placed to SKATING RINK ICE MAKER -08/15/2021; case was discussed with Dr. Little with [employer]ATING [employer]INK ICE MAKER with [facility] plan is for patient to follow-up with OB as outpatient with pelvic ultrasound 2 weeks after her discharge ?08/18/2021. CT of the abdomen obtained on 08/16/2021 demonstrated large heterogeneous uterus suggestive of a fibroid uterus 6. Prolonged QT ?Currently being monitored on telemetry 6. Tobacco dependence - Counseled on cessation, offered nicotine patch for tobacco cravings 7. Or candidiasis ?Patient has been started on nystatin swish and swallow 8. DVT prophylaxis ?SC heparin 9. Anemia - Secondary to chronic disorder monitoring H&H and transfuse if patient becomes symptomatic or hemoglobin falls below 7 ?08/17/2021. Further drop in patient hemoglobin level dropping to 7.6 (hemoglobin on admission was 11.5) did undertake iron studies (iron level ferritin level TIBC reticulocyte count as well as B12 levels) -08/18/2021; patient iron studies consistent with iron deficiency anemia. This may be secondary to patient endometrial mass possibly fibroids. Plan is for patient to follow-up with SKATING RINK ICE MAKER following discharge Charges/Coding Visit Charges Inpatient E&M: 76708 Subs Hosp L2
[2021-08-18 09:09] LABS: ALB/GLOB Ratio 0.4 RATIO (0.9-2.4); AST(SGOT) 30 U/L (15-37); Alanine Aminotransfer ALT/SGPT 22 U/L (13-56); Albumin, Serum 1.7 g/dL (3.2-5.0); Alkaline Phosphatase 67 U/L (45-117); Anion Gap 6 (5-15); BUN 4 mg/dL (7-18); BUN/Creat Ratio 11.9 RATIO (10-20); Calcium,Total 8.6 mg/dL (8.5-10.1); Chloride 109 mmol/L (98-107); Creatinine, Serum 0.34 mg/dL (0.55-1.02); EST Glomerular Filtration Rate 229 mL/min (>60); Est Glom Filt Rate - Afr Amer 278 mL/min (>60); Estimated Creatinine Clearance 203.84 ml/min; Globulin 3.9 g/dL (2.2-4.2); Glucose 93 mg/dL (74-106); Lipase 927 U/L (73-393); Magnesium 1.8 mg/dL (1.6-2.6); Potassium 3.7 mmol/L (3.5-5.1); Protein, Total 5.6 g/dL (6.4-8.2); Sodium Level 139 mmol/L (136-145)
[2021-08-18] MEDS: Sodium Ferric Gluconat 250 MG in 0.9% Normal Saline 250 ML 135 MG IV (10:32)
--- NOTE | 2021-08-18 13:44 | MRI_ITS ---
STUDY: MR MRCP WITHOUT CONTRAST REASON FOR EXAM: Female, 41 years old. pancreatitis and possible MIrrizz''s syndrome TECHNIQUE: Standard MRCP technique was utilized. 3-D postprocessing images including MIPS were reviewed. COMPARISON: CT 08/16/2021 FINDINGS: Gall Bladder: Normal with no distention or demonstrated fixed intraluminal filling defect. Cystic duct: Normal with no demonstrated fixed filling defect. Intrahepatic ducts: Normal visualized intrahepatic ducts with no demonstrated fixed filling defect, dilation or stricture. Common hepatic duct: Normal with no demonstrated fixed filling defect, dilation or stricture. Common bile duct: Normal with no demonstrated fixed filling defect, dilation or stricture. Pancreatic duct: Normal with no demonstrated fixed filling defect, dilation or stricture. Other: Diffuse enlargement of the pancreas with surrounding peripancreatic fat stranding. MRI/MRCP Abdomen without Contrast IMPRESSION: No evidence of intra or extrahepatic biliary ductal dilatation. No evidence of Mirizzi syndrome. Acute interstitial edematous pancreatitis. Electronically Signed: Bernardo Keith MD at 19:18 EDT Tel , Service support ,
[2021-08-19] VITALS (8 sets, daily range): BP systolic 128–138; BP diastolic 86–93; PULSE 71–90; RESP 16–18; TEMP 36.9–37.3; O2SAT 95–100
[2021-08-19] MEDS: oxyCODONE 5 MG Tablet PO ×5 (03:26→21:22)
[2021-08-19 08:25] LABS: Absolute Lymphocyte Count 1.18 X10^3/uL (0.83-4.51); Absolute Neutrophil Count 6.1 X10^3/uL (2.0-7.7); Basophil# 0.04 X10^3/uL; Basophil% 0.5 % (0-1); Eosinophil# 0.23 X10^3/uL; Eosinophils% 2.7 % (0-5); Hematocrit 24.7 % (37-47); Hemoglobin 8.3 g/dL (12.0-15.0); Lymphocyte # 1.18 X10^3/ul (0.83-4.51); Lymphocyte % 14.1 % (19-41); Mean Corp Hgb Conc 33.6 g/dL (32-36); Mean Corpuscular Volume 92.2 fL (81-99); Mean Platelet Vol. 8.2 fl (6.2-12.0); Monocyte# 0.78 X10^3/uL; Monocyte% 9.3 % (0-10); NRBC Flagged by Analyzer 0 % (0-5); Neutrophil % 72.8 % (47-70); POSITIVE MORPHOLOGY YES; Platelet Count 318 K/mm3 (150-450); RBC Distribution Width CV 14.6 % (11.6-14.6); RBC Distribution Width SD 48.8 fl (35.1-43.9); Red Blood Count 2.68 M/mm3 (4.2-5.4); White Blood Count 8.4 K/mm3 (4.4-11.0)
[2021-08-19 08:29] LABS: Differential Indicated SCAN CRITERIA MET
[2021-08-19 08:51] LABS: AST(SGOT) 70 U/L (15-37); Alanine Aminotransfer ALT/SGPT 62 U/L (13-56); Albumin, Serum 1.8 g/dL (3.2-5.0); Alkaline Phosphatase 84 U/L (45-117); Anion Gap 5 (5-15); BUN 3 mg/dL (7-18); BUN/Creat Ratio 7.1 RATIO (10-20); Bilirubin, Direct 0.18 mg/dL (0.00-0.30); Calcium,Total 8.9 mg/dL (8.5-10.1); Chloride 109 mmol/L (98-107); Creatinine, Serum 0.42 mg/dL (0.55-1.02); EST Glomerular Filtration Rate 175 mL/min (>60); Est Glom Filt Rate - Afr Amer 212 mL/min (>60); Estimated Creatinine Clearance 165.02 ml/min; Globulin 4.1 g/dL (2.2-4.2); Glucose 97 mg/dL (74-106); Lipase 794 U/L (73-393); Protein, Total 5.9 g/dL (6.4-8.2); Sodium Level 140 mmol/L (136-145)
[2021-08-19] MEDS: Iron Polysaccharide Complex 150 MG CAPSULE PO (09:04)
[2021-08-19] MEDS: NYSTATIN 500,000 UNIT/5 ML UDC 500000 UNIT PO ×4 (09:04→21:22)
[2021-08-19] MEDS: Potassium Chloride Oral Tablet 20 MEQ PO ×2 (09:04→17:21)
[2021-08-19 09:08] LABS: Hypochromasia 2+; Platelet Estimate ADEQUATE (ADEQ)
[2021-08-19] MEDS: Polyethylene Glycol 3350 17 GM PACKET PO (09:11)
--- NOTE | 2021-08-19 09:37 | CON.PCM.GI_ITS ---
HPI Consult Data Date of Consult: 08/19/21 HPI Narrative HPI Narrative: 42-year-old with worsening abdominal pain. She said that she initially thought it was secondary to recurrent kidney stones versus menstrual pains from a constant 3-week menstrual cycle. In the ED she was discovered to have hyperlipasemia, hypokalemia and metabolic acidosis. CT scan abdomen pelvis had shown pancreatitis involving the head of the pancreas and the pancreatic body. Ultrasound of the right upper quadrant showed a 5 mm gallbladder polyp without stones or gallbladder wall thickening. She was treated with bowel rest, IV fluids, pain medicine and antibiotics. I requested that patient get an MRCP. The MRCP does not show any signs of pancreatic divisum. It does show diffuse pancreatitis involving the pancreatic head, body and tail. She has no family history of autoimmune pancreatitis. She has no other autoimmune diseases. She does not drink any alcohol. She has no family history or personal history of hypertriglyceridemia. She does have a history of kidney stones but no history of hypercalcemia. She did have a recent viral infection that was initially negative for Covid, then subsequently she was positive for Covid. She recently came off of a 10-day quarantine in the hospital. At this time her abdominal pain is a lot better. Her diarrhea has resolved and she is actually hungry. [facility] Medical History Kidney stones Pancreatitis Smoker Home Medications multivitamin 1 cap PO DAILY 08/14/21 [History Last Taken Unknown] Allergy/AdvReac Type Severity Reaction Status Date / Time sulfamethoxazole Allergy Other Verified 08/14/21 04:00 [From Bactrim] trimethoprim [From Bactrim] Allergy Other Verified 08/14/21 04:00 cefaclor [From Ceclor] AdvReac Hives Verified 08/14/21 04:00 Family History Other Heart disease Hypertension Surgical History (Updated 08/14/21 @ 04:[address] Keith Marroquin MD) H/O lumpectomy History of tonsillectomy Social History Smoking Status: Current every day smoker tobacco type: cigarettes ROS Review of Systems ROS Unobtainable: other Constitutional Constitutional: Denies fatigue, fever(s), poor appetite, weight gain or weight loss ENT HEENT: Denies mouth lesions Cardiovascular Cardiovascular: Denies abdominal bloating, abdominal edema or abdominal pain Respiratory/Chest Respiratory/Chest: Denies change in mental status, change in phlegm color, chest congestion or chest tightness Gastrointestinal Gastrointestinal: Denies belching, bloating, change in bowel habits, change in stool character, chewing difficulty, coffee ground emesis, constipation, cramping, diarrhea, dyspepsia, dysphagia, early satiety, excessive flatus, fecal incontinence, heartburn, hematemesis, hematochezia, hemorrhoids, loose stools, melena, nausea, odynophagia, rectal bleeding, tenesmus, vomiting or weight changes Genitourinary Genitourinary: Denies abdominal discomfort, burning urination or itching Musculoskeletal Musculoskeletal: Reports as per HPI; Denies muscle weakness or myalgias Integumentary Integumentary: Denies jaundice Neurologic Neurologic: Denies lack of coordination or weakness Psychiatric Psychiatric: Denies confusion, depression, memory loss, mood swings, paranoia or suicidal ideation Endocrine Endocrinology: Denies systems reviewed and no addt'l complaints, except as documented Hematologic/Lymphatic Hematologic/Lymphatic: Denies anemia, easy bleeding, easy bruising or lymphadenopathy Allergic/Immunologic Allergic/Immunologic: Denies systems reviewed and no addt'l complaints, except as documented Physical Exam Const alert General Appearance: cooperative Orientation / Consciousness: oriented to person HEENT hearing grossly normal bilaterally Head and Scalp: normal to inspection Face and Sinus: face symmetric Nose: external nose normal Mouth: oral and palatal mucosa normal Eyes conjunctivae normal General Eye: normal appearance of both eyes Neck full ROM General: normal visual inspection Lymph Lymphatic: no lymphadenopathy noted Chest inspection of chest normal and palpation of chest normal Chest: symmetrical chest wall rise Resp normal respiratory effort Effort and Inspection: able to speak in complete sentences Cardio regular rate GI non-distended Percussion: normal to percussion Rectal Exam: deferred Neuro Speech: speech normal Gait (Neuro): normal gait Lab / Micro Data Result Diagrams: 08/19/21 07:13 08/19/21 07:13 Labs: Laboratory Results - last 24 hr 08/19/21 07:13: WBC 8.4, RBC 2.68 L, Hgb 8.3 L, Hct 24.7 L, MCV 92.2, MCH 31.0, MCHC 33.6, RDW Std Deviation 48.8 H, RDW Coeff of Nick 14.6, Plt Count 318, MPV 8.2, Immature Gran % (Auto) 0.600, Neut % (Auto) 72.8 H, Lymph % (Auto) 14.1 L, [place] % (Auto) 9.3, Eos % (Auto) 2.7, Baso % (Auto) 0.5, Absolute Neuts (auto) 6.1, Absolute Lymphs (auto) 1.18, Nucleated RBC % 0, Platelet Estimate ADEQUATE, Hypochromasia 2+ 08/19/21 07:13: Sodium 140, Potassium 4.0, Chloride 109 H, Carbon Dioxide 26.0, Anion Gap 5, BUN 3 L, Creatinine 0.42 L, Estim Creat Clear Calc 165.02, Est GFR (MDRD) Af Amer 212, Est GFR (MDRD) Non-Af 175, BUN/Creatinine Ratio 7.1 L, Glucose 97, Calcium 8.9, Total Bilirubin 0.40, Direct Bilirubin 0.18, AST 70 H, ALT 62 H, Alkaline Phosphatase 84, Total Protein 5.9 L, Albumin 1.8 L, Globulin 4.1, Lipase 794 H Radiology Impression MRCP 08/18/21 13:44 IMPRESSION: No evidence of intra or extrahepatic biliary ductal dilatation. No evidence of Mirizzi syndrome. Acute interstitial edematous pancreatitis. Electronically Signed: Bernardo Keith MD at 19:18 EDT Tel , Service support , Assessment & Plan Assessment/Plan (1) Pancreatitis: PLAN: Acute pancreatitis. The differential diagnosis does include choledocholithiasis. Also differential diagnosis does include viral pancreatitis. At this time she has a low Mat score and is at low risk to develop worsening pancreatitis. I will check an ESR and CRP and advance her diet. I will check her ESR CRP after she eats and if it does increase then I would back down on a substantial amount of food at this time. Her MRI from yesterday still shows acute interstitial edematous pancreatitis. This should recover fully. However anticipate it will take another couple weeks. I do not think she needs to stay in the hospital that amount of time but while she advances her diet I would increase her fluids to 200 cc an hour. Charges/Coding Visit Charges Inpatient E&M: 56323 Init Hosp L2
[2021-08-19] MEDS: 0.9% Saline Lock 10 ML Syringe IV (09:38)
[2021-08-19] MEDS: Sodium Ferric Gluconat 250 MG in 0.9% Normal Saline 250 ML 135 MG IV (09:38)
[2021-08-19 10:41] LABS: Erythrocyte Sedimentation Rate 56 mm/hr (0-30)
[2021-08-19] MEDS: 0.9% Normal Saline 1,000 ML 200 ML IV ×3 (11:43→21:48)
--- NOTE | 2021-08-19 12:17 | PN.HOSP_ITS ---
Documented by User: Kiya Casas NP-C 08/19/21 12:49 Subjective Subjective Patient seen and examined. Patient states that she is feeling slightly better than yesterday. Patient states that she continues to need pain medication frequently due to abdominal pain. Objective Data Objective Data Vital Signs: Vital Signs Temp Pulse Resp BP Pulse Ox 98.9 F 77 16 138/93 H 99 08/19/21 08:48 08/19/21 08:48 08/19/21 08:48 08/19/21 08:48 08/19/21 08:48 Oxygen Delivery Method Room Air Weight: 159 lb Body Mass Index (BMI) 25.2 Intake & Output: Intake and Output for Last 24 Hours 08/17/21 08/18/21 08/19/21 23:59 23:59 23:59 Intake Total 2602.5 / 3002.5 1150 / 1150 270 / 270 Output Total 250 / 250 Balance 2602.5 / 3002.5 1150 / 950 20 / 20 Lab / Micro Data Result Diagrams: 08/19/21 07:13 08/19/21 07:13 Labs: Laboratory Results - last 24 hr 08/19/21 07:13: WBC 8.4, RBC 2.68 L, Hgb 8.3 L, Hct 24.7 L, MCV 92.2, MCH 31.0, MCHC 33.6, RDW Std Deviation 48.8 H, RDW Coeff of Nick 14.6, Plt Count 318, MPV 8.2, Immature Gran % (Auto) 0.600, Neut % (Auto) 72.8 H, Lymph % (Auto) 14.1 L, [place] % (Auto) 9.3, Eos % (Auto) 2.7, Baso % (Auto) 0.5, Absolute Neuts (auto) 6.1, Absolute Lymphs (auto) 1.18, Nucleated RBC % 0, Platelet Estimate ADEQUATE, Hypochromasia 2+ 08/19/21 07:13: Sodium 140, Potassium 4.0, Chloride 109 H, Carbon Dioxide 26.0, Anion Gap 5, BUN 3 L, Creatinine 0.42 L, Estim Creat Clear Calc 165.02, Est GFR (MDRD) Af Amer 212, Est GFR (MDRD) Non-Af 175, BUN/Creatinine Ratio 7.1 L, Glucose 97, Calcium 8.9, Total Bilirubin 0.40, Direct Bilirubin 0.18, AST 70 H, ALT 62 H, Alkaline Phosphatase 84, Total Protein 5.9 L, Albumin 1.8 L, Globulin 4.1, Lipase 794 H 08/19/21 07:13: ESR 56 H 08/19/21 07:13: C-React Prot Ext Range 111.00 H Radiography Diagnostic Testing: Radiology Impression MRCP 08/18/21 13:44 IMPRESSION: No evidence of intra or extrahepatic biliary ductal dilatation. No evidence of Mirizzi syndrome. Acute interstitial edematous pancreatitis. Electronically Signed: Bernardo Keith MD at 19:18 EDT Tel , Service support , Physical Exam Const alert, oriented x3 and no apparent distress HEENT head/scalp atraumatic Head and Scalp: normocephalic Mouth: thrush Eyes conjunctivae normal and no scleral icterus Neck full ROM and supple Resp normal respiratory effort, normal air movement and clear to auscultation bilaterally Effort and Inspection: able to speak in complete sentences and symmetric chest movement Cardio regular rate, regular rhythm, S1 normal heart sound and S2 normal heart sound GI soft to palpation and non-distended Palpation: tender epigastric Extremity normal to inspection, full ROM and no clubbing, cyanosis or edema Peripheral Pulses: Yes pulses 2+ throughout Skin no rashes or lesions noted, no wounds and skin turgor normal Neuro oriented x3, moves all extremities, no focal motor deficits and no sensory deficits noted Sensorium / Orientation: awake and alert Psych affect normal Assessment & Plan Assessment/Plan (1) Pancreatitis: QUALIFIERS: Acute pancreatitis complication: unspecified Chronicity: acute Pancreatitis type: unspecified pancreatitis type Qualified Code(s): K85.90 - Acute pancreatitis without necrosis or infection, unspecified (2) COVID-19: (3) Pelvic mass: (4) JOSEPH (acute kidney injury): PLAN: 1. Acute viral gastroenteritis -Resolved 2. COVID-19 infection -Patient currently on room air -Isolation discontinued 3. Acute pancreatitis -Patient's lipase improving however patient still requiring significant amount of pain medication. -GI following, recommended an increasing patient's IV fluids to 200 mL/h and attempting to advance diet. -Per Dr. Cooper's note he will obtain an ESR and CRP prior to advancing her diet and will repeat after advancing diet for evaluation. 4. Hypokalemia -Resolved, 4.0 today 5. Anemia -Secondary to chronic bleeding disorder due to fibroids -daily CBC ordered -Patient received iron transfusion yesterday and will receive second transfusion today 6. Pelvic mass -CT of the abdomen demonstrates large heterogeneous uterus suggestive of a fibroid uterus -Patient has a known about mass for approximately 2 years and states she was waiting for Covid to be over prior to receiving care. -Will follow outpatient with Dr. Little at [facility] 7. Prolonged QT -Continue telemetry 8. Oral candidiasis -Continue nystatin swish and swallow DVT prophylaxis-subcu heparin This patient was seen by MURPHY Winters under the supervision of Dr. Swift. Documented by User: Dr. Julian Swift MD 08/19/21 13:44 Objective Data Lab / Micro Data Result Diagrams: 08/19/21 07:13 08/19/21 07:13 Assessment & Plan Addt'l Comments This patient was seen in conjunction with MURPHY Winters . I have independently interviewed and examined the patient and reviewed pertinent historical, laboratory, and other data. Please refer to MURPHY Winters note for details of this patient's presentation, findings, and recommendations. I have reviewed MURPHY Winters note and concur with documented findings. In brief, Patient is a 40-year-old lady with known history of a pelvic mass for over 2 years. Who presented with a 3-week history of progressive lower abdominal pain with radiation to her back. Apparently did complain of nausea vomiting as well as diarrhea. CT of the abdomen obtained at an outside hospital did demonstrate a pelvic mass in addition to features consistent with pancreatitis. Her SARS-CoV-2 assay obtained in the ED came back positive admitted to regular nursing floor for further management 08/19/2021; in view of patient persistent abdominal pain consult was placed to GI patient seen by Dr. Cooper who ordered MRI of the abdomen which did demonstrate acute interstitial edematous pancreatitis Physical Examination: GENERAL: cooperative HEENT: Atraumatic; EYES; Anicteric, Normal Conjunctiva NECK; supple, normal thyroid, RESPIRATORY: Diminished to auscultation CARDIOVASCULAR: Regular S1 S2, GI: soft, normoactive bowel sounds, : No Renal angle tenderness; EXTREMITIES: No edema, no clubbing, MUSCULOSKELETAL: no muscle waisting NEURO: Awake; no lateralizing signs. SKIN: No Rash PSYCH; Flat affect Assessment: 1. Acute viral gastroenteritis secondary to SARS-CoV-2 infection?resolved 2. Acute pancreatitis 3. Iron deficiency anemia 4. Pelvic mass consistent with fibroid uterus 5. Hypokalemia 6. Tobacco dependence 7. Oral candidiasis 8. Prolonged QT Recommendations: 1. I have discussed the results of my overview and impressions with the patient 2. Options for management were reviewed Charges/Coding Visit Charges Inpatient E&M: 48121 [facility] Hosp L3
[2021-08-20 01:33] VITALS: BP 141/85; PULSE 80; RESP 18; TEMP 36.7; O2SAT 98
[2021-08-20 02:00] VITALS: PULSE 62
[2021-08-20] MEDS: 0.9% Normal Saline 1,000 ML 200 ML IV ×2 (02:01→07:28)
[2021-08-20] MEDS: oxyCODONE 5 MG Tablet PO ×3 (02:03→10:23)
[2021-08-20 06:08] VITALS: BP 144/84; PULSE 67; RESP 18; TEMP 36.9; O2SAT 98
[2021-08-20 07:00] VITALS: PULSE 73
[2021-08-20 07:37] LABS: Absolute Lymphocyte Count 1.18 X10^3/uL (0.83-4.51); Absolute Neutrophil Count 5.5 X10^3/uL (2.0-7.7); Basophil# 0.03 X10^3/uL; Basophil% 0.4 % (0-1); Eosinophil# 0.26 X10^3/uL; Eosinophils% 3.4 % (0-5); Hematocrit 22.3 % (37-47); Hemoglobin 7.4 g/dL (12.0-15.0); Lymphocyte # 1.18 X10^3/ul (0.83-4.51); Lymphocyte % 15.3 % (19-41); Mean Corp Hgb Conc 33.2 g/dL (32-36); Mean Corpuscular Hgb 31.2 pg (27.0-32.0); Mean Corpuscular Volume 94.1 fL (81-99); Mean Platelet Vol. 8.4 fl (6.2-12.0); Monocyte# 0.72 X10^3/uL; Monocyte% 9.3 % (0-10); NRBC Flagged by Analyzer 0 % (0-5); Neutrophil # 5.48 X10^3/uL (2.7-7.7); POSITIVE MORPHOLOGY YES; Platelet Count 317 K/mm3 (150-450); RBC Distribution Width CV 14.7 % (11.6-14.6); RBC Distribution Width SD 49.5 fl (35.1-43.9); Red Blood Count 2.37 M/mm3 (4.2-5.4); White Blood Count 7.7 K/mm3 (4.4-11.0)
[2021-08-20 07:46] LABS: Differential Indicated SCAN CRITERIA MET
--- NOTE | 2021-08-20 08:03 | PN.HOSP_ITS ---
Subjective Subjective Patient seen pain is tolerable plan is for patient to be evaluated for possible discharge Objective Data Objective Data Vital Signs: Vital Signs Temp Pulse Resp BP Pulse Ox 98.4 F 73 18 144/84 H 98 08/20/21 06:08 08/20/21 07:00 08/20/21 06:08 08/20/21 06:08 08/20/21 06:08 Oxygen Delivery Method Room Air Weight: 72.121 kg Body Mass Index (BMI) 25.2 Intake & Output: Intake and Output for Last 24 Hours 08/18/21 08/19/21 08/20/21 23:59 23:59 22:59 Intake Total 1150 / 1150 3346.67 / 3346.67 1999 Output Total 250 / 250 Balance 1150 / 950 3096.67 / 3096.67 1999 Lab / Micro Data Result Diagrams: 08/20/21 07:00 08/20/21 07:00 Labs: Laboratory Results - last 24 hr 08/19/21 07:13: Platelet Estimate ADEQUATE, Hypochromasia 2+ 08/19/21 07:13: ESR 56 H 08/19/21 07:13: C-React Prot Ext Range 111.00 H 08/20/21 07:00: WBC 7.7, RBC 2.37 L, Hgb 7.4 L, Hct 22.3 L, MCV 94.1, MCH 31.2, MCHC 33.2, RDW Std Deviation 49.5 H, RDW Coeff of Nick 14.7 H, Plt Count 317, MPV 8.4, Immature Gran % (Auto) 0.600, Neut % (Auto) 71.0 H, Lymph % (Auto) 15.3 L, [place] % (Auto) 9.3, Eos % (Auto) 3.4, Baso % (Auto) 0.4, Absolute Neuts (auto) 5.5, Absolute Lymphs (auto) 1.18, Nucleated RBC % 0 Assessment & Plan Assessment/Plan (1) Pancreatitis: QUALIFIERS: Acute pancreatitis complication: unspecified Chronic ity: acute Pancreatitis type: unspecified pancreatitis type Qualified Code(s): K85.90 - Acute pancreatitis without necrosis or infection, unspecified (2) COVID-19: (3) Pelvic mass: (4) JOSEPH (acute kidney injury): PLAN: Patient is a 40-year-old lady with known history of a pelvic mass for over 2 years. Who presented with a 3-week history of progressive lower abdominal pain with radiation to her back. Apparently did complain of nausea vomiting as well as diarrhea. CT of the abdomen obtained at an outside hospital did demonstrate a pelvic mass in addition to features consistent with pancreatitis. Her SARS-CoV-2 assay obtained in the ED came back positive admitted to regular nursing floor for further management 1. Acute viral gastroenteritis ?Suspected to be secondary to patient SARS-CoV-2 infection. Plan is to treat symptomatically. ?08/17/2021 acute viral gastroenteritis resolved 2. SARS-CoV-2 infection -patient presented with gastroenteritis currently does not have any respiratory symptoms we will continue with monitoring -08/16/2021; patient not requiring any oxygen 3. Acute pancreatitis ?Patient lipase levels greater than 3000. She also did have CT findings consistent with pancreatitis. Patient started on clear liquids in addition to pain management and PPI. Repeat lipase levels ordered. Also ordered ultrasound of the liver and gallbladder -08/15/2021; ultrasound of the gallbladder obtained demonstrated The gallbladder is distended. Minimal pericholecystic fluid. Small gallbladder polyp. No evidence of gallstones. Mild degree of dilated central intrahepatic biliary ducts. Patient still remains significantly symptomatic did adjust patient's diet -08/16/2021; patient still has significant abdominal pain adjusted pain meds -08/17/2021; patient still requiring significant amount of pain medication. Plan is advance diet as tolerated -08/20/2021. Consult was placed to Dr. Cooper with GI his notes and recommendations reviewed 4. Hypokalemia -Corrected per protocol -08/15/2021; patient potassium still remains low at 2.7 additional replacement added -08/16/2021; potassium up to 3.3 ?08/17/2021. Potassium up to 3.7 5. Pelvic mass ?Patient has no of the pelvic mass from her 2-year. She apparently told admitting physician she was waiting for Covid pandemic to be over prior to seeking care. Consult has subsequently been placed to [facility] -08/15/2021; case was discussed with Dr. Little with [facility] with [facility] plan is for patient to follow-up with OB as outpatient with pelvic ultrasound 2 weeks after her discharge ?08/18/2021. CT of the abdomen obtained on 08/16/2021 demonstrated large heterogeneous uterus suggestive of a fibroid uterus 6. Prolonged QT ?Currently being monitored on telemetry 6. Tobacco dependence - Counseled on cessation, offered nicotine patch for tobacco cravings 7. Or candidiasis ?Patient has been started on nystatin swish and swallow 8. DVT prophylaxis ?SC heparin 9. Anemia - Secondary to chronic disorder monitoring H&H and transfuse if patient becomes symptomatic or hemoglobin falls below 7 ?08/17/2021. Further drop in patient hemoglobin level dropping to 7.6 (hemoglobin on admission was 11.5) did undertake iron studies (iron level ferritin level TIBC reticulocyte count as well as B12 levels) -08/18/2021; patient iron studies consistent with iron deficiency anemia. This may be secondary to patient endometrial mass possibly fibroids. Plan is for patient to follow-up with [facility] following discharge Charges/Coding Visit Charges Inpatient E&M: 96778 Subs Hosp L2
[2021-08-20 08:10] LABS: Anion Gap 6 (5-15); BUN 2 mg/dL (7-18); BUN/Creat Ratio 6.6 RATIO (10-20); Calcium,Total 8.3 mg/dL (8.5-10.1); Chloride 110 mmol/L (98-107); EST Glomerular Filtration Rate 260 mL/min (>60); Est Glom Filt Rate - Afr Amer 314 mL/min (>60); Estimated Creatinine Clearance 231.02 ml/min; Glucose 94 mg/dL (74-106); Potassium 3.8 mmol/L (3.5-5.1); Sodium Level 140 mmol/L (136-145)
[2021-08-20 08:27] LABS: Hypochromasia 1+; Platelet Estimate ADEQUATE (ADEQ)
[2021-08-20] MEDS: Potassium Chloride Oral Tablet 20 MEQ PO (09:29)
[2021-08-20] MEDS: NYSTATIN 500,000 UNIT/5 ML UDC 500000 UNIT PO (09:29)
[2021-08-20] MEDS: Iron Polysaccharide Complex 150 MG CAPSULE PO (09:29)
[2021-08-20] MEDS: Polyethylene Glycol 3350 17 GM PACKET PO (09:31)
[2021-08-20 09:35] VITALS: BP 144/84; PULSE 82; RESP 16; TEMP 36.7; O2SAT 98
[2021-08-20 09:47] LABS: Erythrocyte Sedimentation Rate 60 mm/hr (0-30)
--- NOTE | 2021-08-20 10:41 | DS.PCM_ITS ---
Providers Date of Admission: 08/14/21 Primary Care Physician: Nona Primary Care Phys Consultations 08/18/21 11:02 Consult: Gastroenterology Routine Consulting Provider: [facility] Reason for Consult: Acute pancreatitis EMERGENT Consult: No MD Notified: Yes Date Notified: 08/18/21 Time Notified: 12:00 Method of Notification: Text Reason For Visit: GASTROENTERITIS,PANCREATITIS,COVID,ABD MASS Diagnosis Discharge Diagnosis (1) Pancreatitis: Status: Acute Code(s): K85.90 - Acute pancreatitis without necrosis or infection, unspecified Qualifiers: Chronicity: acute Pancreatitis type: unspecified pancreatitis type Acute pancreatitis complication: unspecified Qualified Code(s): K85.90 - Acute pancreatitis without necrosis or infection, unspecified (2) COVID-19: Status: Acute Code(s): U07.1 - COVID-19 (3) Pelvic mass: Status: Acute Code(s): R19.00 - Intra-abdominal and pelvic swelling, mass and lump, unspecified site (4) JOSEPH (acute kidney injury): Status: Acute Code(s): N17.9 - Acute kidney failure, unspecified Medications at Discharge Home Medications multivitamin 1 cap PO DAILY 08/14/21 ferrous sulfate [iron] 325 mg PO BID #120 tab 08/20/21 oxycodone 5 mg PO Q4H PRN PRN 5 Days #20 tab 08/20/21 potassium chloride [Klor-Con M20] 20 meq PO BIDCM #60 tab 08/20/21 Hospital Course Operations None Summary of Care Provided Minutes Spent on Discharge: 50 Hospital Course: Patient is a 40-year-old lady with known history of a pelvic mass for over 2 years. Who presented with a 3-week history of progressive lower abdominal pain with radiation to her back. Apparently did complain of nausea vomiting as well as diarrhea. CT of the abdomen obtained at an outside hospital did demonstrate a pelvic mass in addition to features consistent with pancreatitis. Her SARS-CoV-2 assay obtained in the ED came back positive admitted to regular nursing floor for further management 1. Acute viral gastroenteritis ?Suspected to be secondary to patient SARS-CoV-2 infection. Plan is to treat symptomatically. ?08/17/2021 acute viral gastroenteritis resolved 2. SARS-CoV-2 infection -patient presented with gastroenteritis currently does not have any respiratory symptoms we will continue with monitoring -08/16/2021; patient not requiring any oxygen 3. Acute pancreatitis ?Patient lipase levels greater than 3000. She also did have CT findings consistent with pancreatitis. Patient started on clear liquids in addition to pain management and PPI. Repeat lipase levels ordered. Also ordered ultrasound of the liver and gallbladder -08/15/2021; ultrasound of the gallbladder obtained demonstrated The gallbladder is distended. Minimal pericholecystic fluid. Small gallbladder polyp. No evidence of gallstones. Mild degree of dilated central intrahepatic biliary ducts. Patient still remains significantly symptomatic did adjust patient's diet -08/16/2021; patient still has significant abdominal pain adjusted pain meds -08/17/2021; patient still requiring significant amount of pain medication. Plan is advance diet as tolerated -08/20/2021. Consult was placed to Dr. Cooper with GI his notes and recommendations reviewed 4. Hypokalemia -Corrected per protocol -08/15/2021; patient potassium still remains low at 2.7 additional replacement added -08/16/2021; potassium up to 3.3 ?08/17/2021. Potassium up to 3.7 5. Pelvic mass ?Patient has no of the pelvic mass from her 2-year. She apparently told admitting physician she was [facility] Cov[facility]. Consult has subsequently been placed to [facility] [facility] -08/15/2021; case was discussed with Dr. Little with [facility] [facility] [facility] with [facility] plan is for patient to follow-up with OB as outpatient with pelvic ultrasound 2 weeks after her discharge ?08/18/2021. CT of the abdomen obtained on 08/16/2021 demonstrated large heterogeneous uterus suggestive of a fibroid uterus 6. Prolonged QT ?Currently being monitored on telemetry 6. Tobacco dependence - Counseled on cessation, offered nicotine patch for tobacco cravings 7. Or candidiasis ?Patient has been started on nystatin swish and swallow 8. DVT prophylaxis ?SC heparin 9. Anemia - Secondary to chronic disorder monitoring H&H and transfuse if patient becomes symptomatic or hemoglobin falls below 7 ?08/17/2021. Further drop in patient hemoglobin level dropping to 7.6 (hemoglobin on admission was 11.5) did undertake iron studies (iron level ferritin level TIBC reticulocyte count as well as B12 levels) -08/18/2021; patient iron studies consistent with iron deficiency anemia. This may be secondary to patient endometrial mass possibly fibroids. Plan is for patient to follow-up with [facility] [facility] following discharge Physical Exam Narrative GENERAL: cooperative HEENT: Atraumatic; oral thrush EYES; Anicteric, Normal Conjunctiva NECK; supple, normal thyroid, RESPIRATORY: Diminished to auscultation CARDIOVASCULAR: Regular S1 S2, GI: soft, epigastric discomfort : No Renal angle tenderness; EXTREMITIES: No edema, no clubbing, MUSCULOSKELETAL: no muscle waisting NEURO: Awake; no lateralizing signs. SKIN: No Rash PSYCH; Flat affect Weight / BMI Weight Weight: 72.121 kg Body Mass Index (BMI) 25.2 ABG / Lab / Microbiology Data Result Diagrams: 08/20/21 07:00 08/20/21 07:00 Laboratory: Laboratory Results - last 24 hr 08/20/21 07:00: WBC 7.7, RBC 2.37 L, Hgb 7.4 L, Hct 22.3 L, MCV 94.1, MCH 31.2, MCHC 33.2, RDW Std Deviation 49.5 H, RDW Coeff of Nick 14.7 H, Plt Count 317, MPV 8.4, Immature Gran % (Auto) 0.600, Neut % (Auto) 71.0 H, Lymph % (Auto) 15.3 L, Hernando % (Auto) 9.3, Eos % (Auto) 3.4, Baso % (Auto) 0.4, Absolute Neuts (auto) 5.5, Absolute Lymphs (auto) 1.18, Nucleated RBC % 0, Platelet Estimate ADEQUATE, Hypochromasia 1+ 08/20/21 07:00: Sodium 140, Potassium 3.8, Chloride 110 H, Carbon Dioxide 24.0, Anion Gap 6, BUN 2 L, Creatinine 0.30 L, Estim Creat Clear Calc 231.02, Est GFR (MDRD) Af Amer 314, Est GFR (MDRD) Non-Af 260, BUN/Creatinine Ratio 6.6 L, Glucose 94, Calcium 8.3 L 08/20/21 07:00: ESR 60 H 08/20/21 07:00: C-React Prot Ext Range 72.10 H D/C Instructions Discharge Diet: No restrictions Discharge Activity: Return to Normal Activity Call your doctor if you observe: Fever of 101 or Higher, Shortness of breath, Fainting spells and Chest pain Meaningful Use Info Meaningful Use Diagnoses (Choose all that apply): None applicable Discharge Plan Admission Admit Date/Time: 08/14/21 06:53 Primary Reason for Your Visit: Acute pancreatitis Attending Provider: Julian Swift Primary Care Provider: Care Physician,No Primary Discharge Orders/Prescriptions Prescriptions: New potassium chloride [Klor-Con M20] 20 mEq Tablet,Er Particles/Crystals 20 meq PO BIDCM Qty: 60 RF: 0 oxycodone 5 mg Tablet 5 mg PO Q4H PRN PRN (Reason: Pain Score 6-10) 5 Days Qty: 20 RF: 0 ferrous sulfate [iron] 325 mg (65 mg iron) tablet 325 mg PO BID Qty: 120 RF: 0 Continued multivitamin Capsule 1 cap PO DAILY RF: 0 Referrals / Follow Up: Elsa Little MD [STAFF PHYSICIAN] - In 1 Week (Patient to call for appointment) Kalpesh Cooper DO [STAFF PHYSICIAN] - Within 2 Weeks Care Physician,No Primary [Primary Care Provider] - Disposition Disposition (needs filled in before D/C Order can be placed): Home, Self Care Charges/Coding Visit Charges Inpatient E&M: 92182 Disch Hosp
--- NOTE | 2021-08-21 14:25 | CASEMGMT ---
TRISH BAZAN Discharge Follow-up Phone Call: AMI: Nayla Strata: 1 Call Date: 08/21/21 Discharge Date: 08/20/21 Time of Call: 0885 Duration: Admitting Diagnosis: Covid TRISH BAZAN completed follow-up phone call after recent hospitalization. Patient states she is doing well. Patient had no questions or concerns regarding discharge instructions. Patient was able to fill prescriptions without any issues. Patient aware to schedule follow-up appts.
== END 2021-08-20 12:55 | disposition home or self-care (01) | DRG 438 ==
PROVIDERS: Internal Medicine Gastroenterology; Nurse Practitioner Family; Admitting Provider Hospitalist; Visit Provider Internal Medicine
DX: K85.90 Acute pancreatitis without necrosis or infection, unspecified (principal); U07.1 COVID-19; N17.9 Acute kidney failure, unspecified; B37.0 Candidal stomatitis; K92.1 Melena; E87.2 Acidosis; A08.39 Other viral enteritis; E87.6 Hypokalemia; D25.9 Leiomyoma of uterus, unspecified; K82.4 Cholesterolosis of gallbladder; R94.31 Abnormal electrocardiogram [ECG] [EKG]; D63.8 Anemia in other chronic diseases classified elsewhere; D50.9 Iron deficiency anemia, unspecified; Z87.442 Personal history of urinary calculi; F17.210 Nicotine dependence, cigarettes, uncomplicated
CPT/HCPCS: 36415; 74177; 74181; 76705; 80048; 80053; 80061; 80076; 82607; 82728; 83540; 83550; 83690; 83735; 85025; 85045; 85652; 86140; 86703; 93970; 97802; 99406; J7030; J7050; J7120; Q9967; A4216; J2916

== ENCOUNTER → 2021-09-05 10:32 | Outpatient (CLI) | payer OTHER, SELFPAY ==
[2021-09-05 11:45] LABS: Absolute Lymphocyte Count 1.25 X10^3/uL (0.83-4.51); Absolute Neutrophil Count 3.8 X10^3/uL (2.0-7.7); Basophil# 0.04 X10^3/uL; Basophil% 0.7 % (0-1); Eosinophil# 0.11 X10^3/uL; Eosinophils% 1.9 % (0-5); Hemoglobin 11.6 g/dL (12.0-15.0); Lymphocyte # 1.25 X10^3/ul (0.83-4.51); Lymphocyte % 21.5 % (19-41); Mean Corp Hgb Conc 31.4 g/dL (32-36); Mean Corpuscular Hgb 30.4 pg (27.0-32.0); Mean Corpuscular Volume 96.9 fL (81-99); Mean Platelet Vol. 8.3 fl (6.2-12.0); Monocyte# 0.48 X10^3/uL; Monocyte% 8.3 % (0-10); NRBC Flagged by Analyzer 0 % (0-5); Neutrophil # 3.82 X10^3/uL (2.7-7.7); Neutrophil % 65.7 % (47-70); Platelet Count 604 K/mm3 (150-450); RBC Distribution Width CV 13.5 % (11.6-14.6); Red Blood Count 3.82 M/mm3 (4.2-5.4); White Blood Count 5.8 K/mm3 (4.4-11.0)
[2021-09-05 12:22] LABS: Ferritin 437 ng/mL (8-252); Iron 72 ug/dL (50-170); Iron Binding Capacity,Total 206 ug/dL (250-450)
== END ==
PROVIDERS: Referring Provider Internal Medicine Gastroenterology; Visit Provider Internal Medicine Gastroenterology
DX: K85.90 Acute pancreatitis without necrosis or infection, unspecified (principal); R19.00 Intra-abdominal and pelvic swelling, mass and lump, unspecified site
CPT/HCPCS: 36415; 82728; 83540; 83550; 85025

== ENCOUNTER 2021-10-19 06:29 | Day surgery (SDC) | payer OTHER, SELFPAY ==
[2021-10-17 09:29] LABS: Erythrocyte Sedimentation Rate 12 mm/hr (0-30)
[2021-10-17 10:02] LABS: AST(SGOT) 20 U/L (15-37); Alanine Aminotransfer ALT/SGPT 37 U/L (13-56); Albumin, Serum 3.6 g/dL (3.2-5.0); Alkaline Phosphatase 61 U/L (45-117); CRP < 2.90 mg/L (0.0-3.0); Cholesterol 179 mg/dL (200); Globulin 3.8 g/dL (2.2-4.2); High Density Lipoprotein 41 mg/dL; Protein, Total 7.4 g/dL (6.4-8.2); Triglycerides 154 mg/dL; Very Low Density Lipoprotein 31 mg/dL (5-40)
[2021-10-18 07:08] LABS: HEPATITIS B SURFACE AG Negative (Negative); Hepatitis A IgM Antibody Negative (Negative); Hepatitis B Core AB IgM Negative (Negative)
[2021-10-18 08:47] LABS: Hematocrit 41.5 % (37-47); Hemoglobin 13.4 g/dL (12.0-15.0); Mean Corp Hgb Conc 32.3 g/dL (32-36); Mean Corpuscular Hgb 30.8 pg (27.0-32.0); Mean Corpuscular Volume 95.4 fL (81-99); Mean Platelet Vol. 9.9 fl (6.2-12.0); Platelet Count 343 K/mm3 (150-450); RBC Distribution Width CV 13.2 % (11.6-14.6); RBC Distribution Width SD 46.5 fl (35.1-43.9); Red Blood Count 4.35 M/mm3 (4.2-5.4); White Blood Count 7.2 K/mm3 (4.4-11.0)
[2021-10-18 09:02] LABS: Anion Gap 9 (5-15); BUN 12 mg/dL (7-18); BUN/Creat Ratio 17.5 RATIO (10-20); Calcium,Total 9.1 mg/dL (8.5-10.1); Chloride 112 mmol/L (98-107); Creatinine, Serum 0.69 mg/dL (0.55-1.02); EST Glomerular Filtration Rate 100 mL/min (>60); Est Glom Filt Rate - Afr Amer 121 mL/min (>60); Glucose 110 mg/dL (74-106); Potassium 3.8 mmol/L (3.5-5.1); Sodium Level 143 mmol/L (136-145)
[2021-10-18 14:08] LABS: Hep C Antibodies <0.1 s/co ratio (0.0-0.9)
[2021-10-19] VITALS (7 sets, daily range): BP systolic 134–165; BP diastolic 79–95; PULSE 64–76; RESP 16–18; TEMP 36.2–36.9; O2SAT 96–100; BMI 25.4
[2021-10-19 07:13] LABS: Internal QC Validated? YES +Cl - CLEAR BKGD; Pregnancy, Urine Negative Negative
[2021-10-19] MEDS: Enoxaparin 40 MG/0.4 ML Syringe SC (07:30)
[2021-10-19] MEDS: dexAMETHasone 10 MG/ML Vial 8 MG IV (07:31)
[2021-10-19] MEDS: Scopolamine 1mg/72hr Patch 1 PATCH TD (07:32)
[2021-10-19] MEDS: Acetaminophen 500 MG Tablet 1000 MG PO (07:37)
[2021-10-19] MEDS: Celecoxib 200 MG Capsule 400 MG PO (07:37)
[2021-10-19] MEDS: Gabapentin 600 MG Tablet PO (07:37)
[2021-10-19] MEDS: Phenazopyridine 95 MG Tablet 190 MG PO (07:40)
[2021-10-19] MEDS: Lactated Ringers 1,000 ML 40 ML IV (07:41)
[2021-10-19 07:51] LABS: Prothrombin Time (Protime)PT. 12.6 SECONDS (11.7-14.9)
[2021-10-19 07:52] LABS: Partial Thromboplast Time 30.9 Seconds (24.1-36.2)
[2021-10-19 08:06] LABS: Bedside Glucose 65 mg/dL (70-110)
[2021-10-19] MEDS: Bupivacaine Mpf 0.5% 30 ML VIAL (09:04)
--- NOTE | 2021-10-19 09:21 | OP.PCM_ITS ---
Problems Associated Problem List Diagnoses (1) Uterine fibroid: (2) Pelvic pain: (3) Abnormal uterine bleeding (AUB): Report of Operation Date of Procedure: 10/19/21 Pre-Operative Diagnosis: pelvic pain, abnormal uterine bleeding, uterine fibroid Post-Operative Diagnosis: same Surgery/Procedure Performed:: Diagnostic laparascopy Description of Surgical Findings:: Enlarged uterus with central fibroid, bilateral ovaries with endometriosis, densely adhered to pelvic side wall and uterus, normal appendix and upper peritoneal cavity. Some endometriosis implants on anterior cul de sac Surgeon: Katerin Morel shoe treer: Amelia Perea Type of Anesthesia: General Anesthesiologist: Mica Leggett Special Medications: none Specimen's removed: none Drains: none Estimated Blood Loss (mL): 5 Fluids Replaced: 1000 mL Description of Procedure: The patient was taken to the operating room where she was prepped and draped in the dorsolithotomy position. Her arms were tucked and padded at her sides and a neurologically safe in neutral position. A weighted speculum was placed in the vagina and the anterior lip of the cervix was grasped with a tenaculum. The uterine arts education teacher uterine manipulator was placed and the remainder of the instruments were removed from the vagina. Attention was turned to the abdomen. All port sites were infiltrated with 0.5% Marcaine before skin incisions were made. A 5 mm intraumbilical incision was made. The anterior abdominal wall was tented up with 2 towel clamps while a 5 mm blade less trocar and sleeve were inserted with the Visiport. Intraperitoneal placement was confirmed with the laparoscope. The pneumoperitoneum was created and the underlying abdominal contents were intact. The patient was placed in Trendelenburg. Right and left lower quadrant ports were placed under direct visualization lateral to the inferior epigastric vessels. The bowel was swept away and the above findings were noted. At this point I consulted with Dr. Sepulveda about course of action. The patient had dense adhesions of the ovaries consistent with deep infiltrating endometriosis. Decision was made to end the procedure and refer the patient to minimally invasive gynecology so she could have resection of her endometriosis. In addition, I would not be able to complete the procedure laparoscopically in order to require a total abdominal hysterectomy. In order to have the best long-term outcome, it was determined that pending the procedure and referring the patient to tertiary care would be the most appropriate course of action. The lateral ports were removed under direct visualization and no active bleeding was noted. The pneumoperitoneum was released and the umbilical port removed. The skin incisions were closed with Monocryl suture in a subcuticular fashion and skin glue by the MEDICAL TRANSPORT SPECIALIST with me present in the operating suite. The vaginal instruments were removed and the vaginal sweep was completed by me. The procedure was performed by me with assistance other than as dictated above. All sponge and needle counts were correct and the patient was taken to the recovery room in stable condition. The MEDICAL TRANSPORT SPECIALIST provided tissue manipulation and camera guidance during the procedure. Grafts/Implants Used: none Procedure Start Time: 08:55 Procedure Stop Time: 09:10 Complications none Admit VTE Documentation VTE Present on Admission: No VTE Mechan Device Prophylaxis: SCD's VTE Pharm Prophylaxis ordered?: No Reason prophylaxis not ordered:: Procedure Not Indicated
--- NOTE | 2021-10-19 09:28 | PCM.DC ---
Discharge Instructions Diet Discharge Diet: No restrictions Activity Discharge Activity: May Shower and May Take a Tub Bath (in 1 week) May resume sexual activity in: 1 week Dressing / Incision Call your doctor if your incision/area has: Sudden Increased Bleeding and Foul Smelling Discharge Call your doctor if you observe: Fever of 101 or Higher Cleanse incision/area with: Soap & Water (Your incisions have skin glue and it can get wet. Leave on until it falls off) Follow Up Care Please Follow Up With: Katerin Morel MD When: In my office or virtual visit in 1-2 weeks or as needed Test Results: Test results from this visit will be discussed in further detail at your follow-up appointment, if applicable. Discharge Plan Admission Primary Reason for Your Visit: pelvic pain, abnormal uterine bleeding, uterine fibroid, endometriosis Attending Provider: Ambika Trevino Primary Care Provider: Care Physician,No Primary Consulting Providers: Jesus Banks ; Katerin Michelle PROFESSIONAL NURSING ASSISTANT Instructions Additional Instructions / Restrictions: Our office will contact you with information on consultation with Minimally In[facility] Gynecology at [facility] regarding surgery and your endometriosis. Discharge Orders/Prescriptions Prescriptions: Continued multivitamin Capsule 1 cap PO DAILY RF: 0 ferrous sulfate [iron] 325 mg (65 mg iron) tablet 325 mg PO BID Qty: 120 RF: 0 acetaminophen [Tylenol] 325 mg Tablet 650 mg PO Q6H PRN (Reason: Pain) RF: 0 norethindrone acetate 5 mg tablet 5 mg PO DAILY RF: 0 Referrals / Follow Up: Care Physician,No Primary [Primary Care Provider] - Disposition Disposition (needs filled in before D/C Order can be placed): Home, Self Care
[2021-10-19 10:01] LABS: Bedside Glucose 87 mg/dL (70-110)
[2021-10-19] MEDS: oxyCODONE 5 MG Tablet PO (10:35)
== END 2021-10-19 23:59 | disposition home or self-care (01) ==
LOC: SDC 06:31 → AC 06:32
PROVIDERS: Anesthesiology; Nurse Practitioner Adult Health; Obstetrics & Gynecology; Referring Provider Obstetrics & Gynecology; Visit Provider Obstetrics & Gynecology
PROC: 0UT94ZZ Resection of Uterus, Percutaneous Endoscopic Approach (ICD-10-PCS; principal; 2021-10-19 08:10)
DX: D25.9 Leiomyoma of uterus, unspecified (principal); N93.9 Abnormal uterine and vaginal bleeding, unspecified; N80.1 Endometriosis of ovary; F17.200 Nicotine dependence, unspecified, uncomplicated; Z86.16 Personal history of COVID-19
CPT/HCPCS: 49320; 00840; 36415; 80048; 80061; 80074; 80076; 81025; 82962; 83735; 85027; 85610; 85652; 85730; 86140; 86850; 86900; 86901; J7120; J2405

== ENCOUNTER → 2022-08-14 | Outpatient (CLI) | payer OTHER, SELFPAY ==
[2022-08-14 11:57] LABS: Erythrocyte Sedimentation Rate 6 mm/hr (0-30)
[2022-08-14 11:59] LABS: Absolute Lymphocyte Count 1.64 X10^3/uL (0.83-4.51); Absolute Neutrophil Count 3.1 X10^3/uL (2.0-7.7); Basophil# 0.03 X10^3/uL; Basophil% 0.6 % (0-1); Eosinophil# 0.14 X10^3/uL; Eosinophils% 2.7 % (0-5); Hematocrit 45.9 % (37-47); Hemoglobin 15.4 g/dL (12.0-15.0); Lymphocyte # 1.64 X10^3/ul (0.83-4.51); Lymphocyte % 31.2 % (19-41); Mean Corp Hgb Conc 33.6 g/dL (32-36); Mean Corpuscular Hgb 30.9 pg (27.0-32.0); Mean Platelet Vol. 8.6 fl (6.2-12.0); Monocyte# 0.38 X10^3/uL; Monocyte% 7.2 % (0-10); NRBC Flagged by Analyzer 0 % (0-5); Neutrophil # 3.06 X10^3/uL (2.7-7.7); Neutrophil % 58.1 % (47-70); Platelet Count 321 K/mm3 (150-450); RBC Distribution Width CV 12.6 % (11.6-14.6); RBC Distribution Width SD 42.6 fl (35.1-43.9); Red Blood Count 4.99 M/mm3 (4.2-5.4); White Blood Count 5.3 K/mm3 (4.4-11.0)
[2022-08-14 12:19] LABS: AST(SGOT) 21 U/L (15-37); Alanine Aminotransfer ALT/SGPT 29 U/L (13-56); Albumin, Serum 3.9 g/dL (3.2-5.0); Alkaline Phosphatase 75 U/L (45-117); Amylase 58 U/L (25-115); Anion Gap 4 (5-15); BUN 12 mg/dL (7-18); BUN/Creat Ratio 12.4 RATIO (10-20); CRP < 2.90 mg/L (0.0-3.0); Calcium,Total 9.7 mg/dL (8.5-10.1); Chloride 109 mmol/L (98-107); Creatinine, Serum 0.96 mg/dL (0.55-1.02); EST Glomerular Filtration Rate 67 mL/min (>60); Est Glom Filt Rate - Afr Amer 82 mL/min (>60); Glucose 102 mg/dL (74-106); Lipase 122 U/L (73-393); Potassium 4.3 mmol/L (3.5-5.1); Protein, Total 7.9 g/dL (6.4-8.2); Sodium Level 138 mmol/L (136-145)
== END | disposition home or self-care (01) ==
LOC: LAB 10:55
PROVIDERS: Visit Provider Nurse Practitioner Adult Health
DX: R10.13 Epigastric pain (principal); Z87.19 Personal history of other diseases of the digestive system
CPT/HCPCS: 36415; 80053; 82150; 83690; 85025; 85652; 86140

== ENCOUNTER → 2022-08-16 | Outpatient (CLI) | payer OTHER, SELFPAY ==
[2022-08-18 18:26] LABS: Fats, Neutral Increased (.); Fats, Total Increased (.)
[2022-08-24 14:26] LABS: Pancreatic Elastase, Fecal 186 (>200)
== END | disposition home or self-care (01) ==
LOC: LABSPEC 08:43
PROVIDERS: Referring Provider Nurse Practitioner Adult Health; Visit Provider Nurse Practitioner Adult Health
DX: R10.13 Epigastric pain (principal); Z87.19 Personal history of other diseases of the digestive system
CPT/HCPCS: 82653; 82705

== ENCOUNTER → 2022-08-23 | Outpatient (CLI) | payer OTHER, SELFPAY ==
--- NOTE | 2022-08-23 08:24 | US_ITS ---
STUDY: ABDOMINAL ULTRASOUND - RIGHT UPPER QUADRANT REASON FOR VISIT: Female, 42 years old epigastric pain, hx pancreatitis TECHNIQUE: Ultrasound evaluation of the right upper quadrant was performed with real-time and static casillas-scale imaging. TECHNICAL QUALITY: Adequate. COMPARISON: Comparison is made with prior study 08/14/2021. FINDINGS: Liver: The liver measures 15 cm. There is normal echogenicity of the liver. The bile ducts are within normal limits. There is hepatic color flow. The direction of portal flow is hepatopetal. There is no demonstrated mass lesion. Gallbladder: Normal distended gallbladder. The gallbladder wall measures 1.3 mm. There is a negative sonographic Rodriguez''s sign. There is no pericholecystic fluid. There are no gallstones. There is a 3 mm gallbladder polyp. Common Bile Duct (C.B.D.): The common bile duct measures 2.0 mm. Pancreas: Normal size of the head, body and tail of the pancreas. There is normal echogenicity of the pancreas. There is no demonstrated pancreatic mass or cyst. Right Kidney: Normal size of the right kidney. The right kidney measures 10.9 cm x 6.1 cm by 6.2 cm. Normal renal cortex. The right cortex measures 2.3 cm. There is no demonstrated renal mass or cyst. There is no right hydronephrosis. There is an 8 mm x 6 mm x 4 mm nonobstructive right intrarenal calculus. US/Abdomen Limited IMPRESSION: 3 mm gallbladder polyp. Electronically Signed: Gilbert Murcia MD at 13:36 EST ,
== END | disposition home or self-care (01) ==
LOC: US 08:23
PROVIDERS: Referring Provider Nurse Practitioner Adult Health; Visit Provider Nurse Practitioner Adult Health
DX: R10.13 Epigastric pain (principal); Z87.19 Personal history of other diseases of the digestive system
CPT/HCPCS: 76705

== ENCOUNTER 2022-09-17 08:03 | Outpatient (CLI) | payer OTHER, SELFPAY ==
--- NOTE | 2022-09-17 08:25 | MRI_ITS ---
EXAM: MR ABDOMEN WITHOUT AND WITH INTRAVENOUS CONTRAST CLINICAL INDICATION: chronic pancreatitis TECHNIQUE: Multiplanar and multisequence MR images of the abdomen without and with intravenous contrast. This report was created using [employer] report generation technology. CONTRAST: IV 19ml Clariscan COMPARISON: MR Abdomen dated 08/16/2021 FINDINGS: LOWER THORAX: Normal. No pleural effusion. LIVER: Normal. Normal morphology. No focal mass. GALLBLADDER AND BILE DUCTS: No discrete stones noted within the gallbladder. No gallbladder distention or wall edema. No intra- or extrahepatic biliary ductal dilation. PANCREAS: Normal. No focal cystic or solid mass. SPLEEN: Normal. Normal size without focal cystic or solid mass. ADRENALS: Normal. No nodules. KIDNEYS AND URETERS: Normal. Normal renal size and position. No hydronephrosis. INTRAPERITONEAL SPACE: Normal. No ascites or other fluid collection. No free air. VASCULATURE: Normal enhancement. Abdominal aorta is non-dilated. LYMPH NODES: No enlarged lymph nodes. MRI/MRI Abd WITH and W/O Contrast IMPRESSION: 1. No evidence of acute pancreatitis or pancreatic mass. 2. Normal biliary tree. Electronically Signed: Kirk Duong MD at 10:42 EST ,
[2022-09-19 15:08] LABS: IgG, Quant 1007 mg/dL (586-1602); Immunoglobulin G, Subclass 1 676 mg/dL (248-810); Immunoglobulin G, Subclass 2 227 mg/dL (130-555); Immunoglobulin G, Subclass 3 91 mg/dL (15-102); Immunoglobulin G, Subclass 4 13 mg/dL (2-96)
[2022-09-21 13:27] LABS: Carbohydrate Ag 19-9 2261 11 U/mL (0-35)
== END 2022-09-17 23:59 | disposition home or self-care (01) ==
PROVIDERS: Referring Provider Nurse Practitioner Adult Health; Visit Provider Nurse Practitioner Adult Health
DX: K86.1 Other chronic pancreatitis (principal)
CPT/HCPCS: 36415; 74183; 82784; 82787; 86301; A9575; A4216

== ENCOUNTER → 2023-12-20 | Outpatient (CLI) | payer OTHER, SELFPAY ==
[2023-12-20 13:55] LABS: PTHIN 33.7 pg/mL (18.4-80.1)
[2023-12-20 13:58] LABS: Magnesium 2.3 mg/dL (1.6-2.6); Phosphorus 2.8 mg/dL (2.5-4.9); Triglycerides 110 mg/dL; Uric Acid 5.4 mg/dL (2.6-6.0)
[2023-12-20 14:00] LABS: Vitamin D,25 Hydroxy 40.8 ng/mL
[2023-12-25 14:09] LABS: Vitamin D 1,25-Dihydroxy 48.4 pg/mL (24.8-81.5)
[2023-12-25 18:08] LABS: Aldolase 4.9 U/L (3.3-10.3); Aldosterone, Serum 9.2 ng/dL (0.0-30.0); Chromogranin A 58.6 ng/mL (0.0-101.8); Cytoplasmic Ab (C-ANCA) <1:20 titer (Neg:<1:20); Gastrin, Serum 21 pg/mL (0-115); Perinuclear Ab (P-ANCA) <1:20 titer (Neg:<1:20)
== END | disposition home or self-care (01) ==
LOC: LAB 12:48
PROVIDERS: Referring Provider Internal Medicine Gastroenterology; Visit Provider Internal Medicine Gastroenterology
DX: R10.13 Epigastric pain (principal); Z87.19 Personal history of other diseases of the digestive system; K59.00 Constipation, unspecified
CPT/HCPCS: 36415; 82085; 82088; 82306; 82533; 82652; 82941; 83735; 83970; 84100; 84478; 84550; 86256; 86316

== ENCOUNTER → 2023-12-23 | Outpatient (CLI) | payer OTHER, SELFPAY ==
--- OUTSIDE RECORDS SUMMARY | 2023-12-23 07:45 | XMS RPT_ITS | CCD ---
Author Name Unknown Address [address] [place] [address] Organization [facility] Care Team Providers Care Software Development Advisor Name Role Phone Unavailable Primary Care Provider Unavailabl e Lucho DO, Fernando Primary Care Provider Lucho DO, Fernando Primary Care Provider LUCHO, FERNANDO Primary Care Unavailable GORGE JRSPENSER GENE Referring Unavaila ble LUCHO, FERNANDO Primary Care Unavailable LUCHO, FERNANDO Referring Unavailable LUCHO, FERNANDO Primary Care Unavailable LUCHO, FERNANDO Referring Unavailable GANGEL JRSPENSER GENE Referring Unavaila ble LUCHO, FERNANDO Primary Care Unavailable LUCHO, FERNANDO Referring Unavailable LUCHO, FERNANDO Primary Care Unavailable SPENSER PAN JR GENE Attending Unavaila ble GANGEL JR, SPENSER GENE Referring Unavaila ble LUCHO, FERNANDO Primary Care Unavailable GORGE JR, SPENSER GENE Admitting Unavaila ble GANGEL JR, SPENSER GENE Attending Unavaila ble GANGEL JR, SPENSER GENE Referring Unavaila ble LUCHO, FERNANDO Primary Care Unavailable LUCHO, FERNANDO Attending Unavailable LUCHO, FERNANDO Primary Care Unavailable HERON SILVEIRA Attending Unavailable LUCHO, FERNANDO Primary Care Unavailable LUCHO, FERNANDO Primary Care Unavailable LUCHO, FERNANDO Referring Unavailable LUCHO, FERNANDO Primary Care Unavailable LUCHO, FERNANDO Attending Unavailable LUCHO, FERNANDO Referring Unavailable Allergies Allergy Classification Reported Allergen(s) Allergy Type Date of Onset Reaction(s) Facility (20 sources) Cefaclor; Translations: [CEFACLOR] Drug Allergy 9 [facility] (20 sources) Clarithromycin; Translations: [CLARITHROMYCIN] Drug Allergy 11-11-202 1 Anaphylaxis [facility] Work Phone: (20 sources) Sulfamethoxazole / Trimethoprim; Translations: [SULFAMETHOXAZOLE-TRI METHOPRIM] Drug Allergy 9 Hives [facility] (12 sources) Trimethoprim; Translations: [TRIMETHOPRIM] Drug Allergy 2 Unknown [facility] Medications Current Medications Medication Drug Class(es) Dates Sig (Normalized) Sig (Original) acetaminophen 500 mg oral tablet (17 sources) Start: 03-09-2022 End: 07-18-2022 take 2 tablets by mouth every six hours as needed acetaminophen (TYLENOL EXTRA STRENGTH) 500 mg tablet Take 2 tablets by mouth every 6 hours as needed for pain. 40 tablet 0 03/09/2022 07/18/2022 Discontinued Completed/Discontinued Medications Medication Drug Class(es) Dates Sig (Normalized) Sig (Original) amylase 700135 unt / lipase 25295 unt / protease [id number] unt delayed release oral capsule (19 sources) Start: 10-21-2023 ZENPEP 40,000-126,000- 168,000 unit delayed release capsule Indications: History of pancreatitis take 1 to 2 capsules WITH SNACKS AND 2 TO 3 CAPSULES WITH MEALS 390 capsule 3 10/21/2023 Active Problems Active Problems Problem Classification Problem Date Documented Date Episodic/Chronic Abdominal pain (1 source) Pain in female pelvis; Translations: [Pelvic and perineal pain] Episodic Administrative/social admission (1 source) Education and/or schooling finding; Translations: [Problems related to education and literacy, unspecified] Episodic Endometriosis (20 sources) Endometriosis (clinical); Translations: [Endometriosis of pelvic peritoneum] Onset: 10-20-2021 10-20-2021 Chronic Essential hypertension (20 sources) Essential hypertension; Translations: [Essential (primary) hypertension] Onset: 07-18-2022 Chronic Genitourinary symptoms and ill-defined conditions (1 source) Dysuria; Translations: [Dysuria] Episodic Immunizations and screening for infectious disease (3 sources) Viral screening status; Translations: [Encounter for screening for other viral diseases] Episodic Nonmalignant breast conditions (1 source) Breast finding ; Translations: [Dense breast tissue] 12-20-2023 Episodic Other circulatory disease (5 sources) Elevated blood-pressure reading without diagnosis of hypertension; Translations: [Elevated blood-pressure reading, without diagnosis of hypertension] Onset: 02-21-2022 Episodic Other female genital disorders (1 source) Abnormal uterine bleeding; Translations: [Abnormal uterine and vaginal bleeding, unspecified] Chronic Other female genital disorders (1 source) Deep pain on intercourse; Translations: [Deep dyspareunia] Chronic Other nutritional; endocrine; and metabolic disorders (2 sources) Obese class I; Translations: [Obesity, unspecified] Onset: 12-20-2023 12-20-2023 Chronic Other skin disorders (1 source) Skin lesion; Translations: [Disorder of the skin and subcutaneous tissue, unspecified] 12-20-2023 Episodic Other skin disorders (1 source) Keratosis pilaris; Translations: [Other specified epidermal thickening] 12-20-2023 Episodic Pancreatic disorders (not diabetes) (1 source) Chronic pancreatitis; Translations: [Other chronic pancreatitis] Chronic Residual codes; unclassified (3 sources) Postoperative state; Translations: [Other specified postprocedural states] Episodic Substance-related disorders (19 sources) Tobacco user; Translations: [Nicotine dependence, unspecified, uncomplicated] Onset: 07-18-2022 Chronic Unclassified (6 sources) NEGATIVE MEDICAL HISTORY Onset: 08-24-2021 08-24-2021 Past or Other Problems Problem Classification Problem Date Documented Da te Episodic/Chronic Acute and unspecified renal failure (6 sources) Acute injury of kidney; Translations: [Acute kidney failure, unspecified] Onset: 03-08-2022 03-08-2022 Episodic Calculus of urinary tract (8 sources) Kidney stone; Translations: [Calculus of kidney] Onset: 01-01-2023 Episodic Deficiency and other anemia (6 sources) Anemia; Translations: [Anemia, unspecified] Onset: 03-08-2022 03-08-2022 Episodic Other gastrointestinal disorders (6 sources) Pelvic mass; Translations: [Intra-abdominal and pelvic swelling, mass and lump, unspecified site] Onset: 03-08-2022 03-08-2022 Episodic Other gastrointestinal disorders (16 sources) History of pancreatitis; Translations: [Personal history of other diseases of the digestive system] Onset: 07-18-2022 07-18-2022 Episodic Other screening for suspected conditions (not mental disorders or infectious disease) (6 sources) Patient encounter status; Translations: [Encounter for screening for lipoid disorders] Onset: 01-31-2023 Episodic Other skin disorders (17 sources) Vesicular eczema; Translations: [Dyshidrosis [pompholyx]] Onset: 07-18-2022 Episodic Pancreatic disorders (not diabetes) (6 sources) Pancreatitis; Translations: [Acute pancreatitis without necrosis or infection, unspecified] Onset: 03-08-2022 03-08-2022 Episodic Viral infection (6 sources) Disease caused by 2019-nCoV; Translations: [COVID-19] Onset: 03-08-2022 03-08-2022 Episodic Results Test Name Value Interpretation Reference Range Facil ity Vital Signs Date Time Vital Sign Value Performing Clinician Faci lity 12-20-2023 10:12-0500 Body height 168.9 cm Fernando Lucho DO Work Phone: [facility] 12-20-2023 10:12-0500 Body temperature 98.4 [degF] Fernando Lucho DO Work Phone: [facility] 12-20-2023 10:12-0500 Body weight 96.16 kg Fernando Lucho DO Work Phone: [facility] 12-20-2023 10:12-0500 Diastolic blood pressure 80 mm[Hg] Fernando Lucho DO Work Phone: [facility] 12-20-2023 10:12-0500 Heart rate 70 /min Fernando Lucho DO Work Phone: [facility] 12-20-2023 10:12-0500 Respiratory rate 20 /min Fernando Lucho DO Work Phone: [facility] 12-20-2023 10:12-0500 SaO2% (BldA) [Mass fraction] 99 % Fernando Lucho DO Work Phone: [facility] 12-20-2023 10:12-0500 Systolic blood pressure 120 mm[Hg] Fernando Lucho DO Work Phone: [facility] 05-13-2023 08:37-0400 Body height 167.6 cm Heron Chavarria MD Work Phone: [facility] 05-13-2023 08:37-0400 Body weight 96.53 kg Heron Chavarria MD Work Phone: [facility] 05-13-2023 08:37-0400 Diastolic blood pressure 93 mm[Hg] Heron Chavarria MD Work Phone: [facility] 05-13-2023 08:37-0400 Heart rate 72 /min Heron Chavarria MD Work Phone: [facility] 05-13-2023 08:37-0400 Systolic blood pressure 146 mm[Hg] Heron Chavarria MD Work Phone: [facility] 02-07-2023 08:17-0400 Body height 168.9 cm Spenser Pan Jr., MD Work Phone: [facility] 02-07-2023 08:17-0400 Body weight 95.25 kg Spenser Pan Jr., MD Work Phone: [facility] 02-07-2023 08:17-0400 Diastolic blood pressure 92 mm[Hg] Spenser Pan Jr., MD Work Phone: [facility] 02-07-2023 08:17-0400 Systolic blood pressure 138 mm[Hg] Spenser Pan Jr., MD Work Phone: [facility] 01-16-2023 08:04-0400 Body height 168.9 cm Fernando Lucho DO Work Phone: [facility] 01-16-2023 08:04-0400 Body weight 95.25 kg Fernando Lucho DO Work Phone: [facility] 01-16-2023 08:04-0400 Diastolic blood pressure 72 mm[Hg] Fernando Lucho DO Work Phone: [facility] 01-16-2023 08:04-0400 Heart rate 70 /min Fernando Lucho DO Work Phone: [facility] 01-16-2023 08:04-0400 SaO2% (BldA) [Mass fraction] 99 % Fernando [facility] DO Work Phone: [facility] 01-16-2023 08:04-0400 Systolic blood pressure 122 mm[Hg] Fernando [facility] DO Work Phone: [facility] 01-11-2023 11:45-0400 Body temperature 96.8 [degF] Spenser Pan Jr., MD Work Phone: [facility] 01-11-2023 11:45-0400 Diastolic blood pressure 92 mm[Hg] Spenser Pan Jr., MD Work Phone: [facility] 01-11-2023 11:45-0400 Heart rate 63 /min Spenser Pan Jr., MD Work Phone: [facility] 01-11-2023 11:45-0400 Respiratory rate 23 /min Spenser Pan Jr., MD Work Phone: [facility] 01-11-2023 11:45-0400 SaO2% (BldA) [Mass fraction] 96 % Spenser Pan Jr., MD Work Phone: [facility] 01-11-2023 11:45-0400 Systolic blood pressure 138 mm[Hg] Spenser Pan Jr., MD Work Phone: [facility] 11-29-2022 11:06-0500 Body height 168.9 cm Spenser Pan Jr., MD Work Phone: [facility] 11-29-2022 11:06-0500 Body weight 95.71 kg Spenser Pan Jr., MD Work Phone: [facility] 11-29-2022 11:06-0500 Diastolic blood pressure 82 mm[Hg] Spenser Pan Jr., MD Work Phone: [facility] 11-29-2022 11:06-0500 Systolic blood pressure 126 mm[Hg] Spenser Pan Jr., MD Work Phone: [facility] 11-13-2022 14:07-0500 Body height 168.9 cm Heron Chavarria MD Work Phone: [facility] 11-13-2022 14:07-0500 Body weight 95.71 kg Heron Chavarria MD Work Phone: [facility] 11-13-2022 14:07-0500 Diastolic blood pressure 98 mm[Hg] Heron Chavarria MD Work Phone: [facility] 11-13-2022 14:07-0500 Heart rate 77 /min Heron Chavarria MD Work Phone: [facility] 11-13-2022 14:07-0500 Systolic blood pressure 153 mm[Hg] Heron Chavarria MD Work Phone: [facility] 11-08-2022 08:03-0500 Body height 168.9 cm Spenser Pan Jr., MD Work Phone: [facility] 11-08-2022 08:03-0500 Body weight 88 kg Spenser Pan Jr., MD Work Phone: [facility] 11-08-2022 08:03-0500 Diastolic blood pressure 88 mm[Hg] Spenser Pan Jr., MD Work Phone: [facility] 11-08-2022 08:03-0500 Systolic blood pressure 144 mm[Hg] Spenser Pan Jr., MD Work Phone: [facility] 08-23-2022 13:28-0500 Diastolic blood pressure 88 mm[Hg] Nurse Mosley Work Phone: [facility] 08-23-2022 13:28-0500 Systolic blood pressure 130 mm[Hg] Nurse Mosley Work Phone: [facility] 08-23-2022 13:27-0500 Heart rate 58 /min Nurse Mosley Work Phone: [facility] 07-18-2022 08:22-0400 Body height 168.9 cm Fernando Yepez DO Work Phone: [facility] 07-18-2022 08:22-0400 Body temperature 99.1 [degF] Fernando Odeni DO Work Phone: [facility] 07-18-2022 08:22-0400 Body weight 88 kg Fernando Odeni DO Work Phone: [facility] 07-18-2022 08:22-0400 Diastolic blood pressure 102 mm[Hg] Fernando Odeni DO Work Phone: [facility] 07-18-2022 08:22-0400 Heart rate 88 /min Fernando Yepez DO Work Phone: [facility] 07-18-2022 08:22-0400 SaO2% (BldA) [Mass fraction] 100 % Fernando Odeni DO Work Phone: [facility] 07-18-2022 08:22-0400 Systolic blood pressure 162 mm[Hg] Fernando Odeni DO Work Phone: [facility] 05-03-2022 13:04-0400 Body height 168.9 cm Heron Chavarria MD Work Phone: [facility] 05-03-2022 13:04-0400 Body weight 81.65 kg Heron Chavarria MD Work Phone: [facility] 05-03-2022 13:04-0400 Diastolic blood pressure 82 mm[Hg] Heron Chavarria MD Work Phone: [facility] 05-03-2022 13:04-0400 Systolic blood pressure 128 mm[Hg] Heron Chavarria MD Work Phone: [facility] 03-01-2022 11:15-0400 Body height 168.9 cm Nurse Angel Work Phone: [facility] 03-01-2022 11:15-0400 Body weight 77.11 kg Nurse Angel Work Phone: [facility] 03-01-2022 11:15-0400 Diastolic blood pressure 80 mm[Hg] Nurse Work Phone: [facility] 03-01-2022 11:15-0400 Systolic blood pressure 140 mm[Hg] Nurse Work Phone: [facility] 02-22-2022 09:06-0400 Body height 168.9 cm Bing Hammerficarmela DO Work Phone: [facility] 02-22-2022 09:06-0400 Body weight 78.47 kg Bing Fiffick DO Work Phone: [facility] 02-22-2022 09:06-0400 Diastolic blood pressure 80 mm[Hg] Bing Fiffick DO Work Phone: [facility] 02-22-2022 09:06-0400 Heart rate 85 /min Bing Hammerfick DO Work Phone: [facility] 02-22-2022 09:06-0400 SaO2% (BldA) [Mass fraction] 98 % Bing Hammerfick DO Work Phone: [facility] 02-22-2022 09:06-0400 Systolic blood pressure 142 mm[Hg] Bing Jaquelinfick DO Work Phone: [facility] 02-21-2022 10:08-0400 Diastolic blood pressure 92 mm[Hg] Pacc 2 Work Phone: [facility] 02-21-2022 10:08-0400 Systolic blood pressure 160 mm[Hg] Pacc 2 Work Phone: [facility] 02-21-2022 08:00-0400 Body height 168.9 cm Pacc 2 Work Phone: [facility] 02-21-2022 08:00-0400 Body temperature 97.81 [degF] Pacc 2 Work Phone: [facility] 02-21-2022 08:00-0400 Body weight 79.83 kg Pacc 2 Work Phone: [facility] 02-21-2022 08:00-0400 Heart rate 77 /min Pacc 2 Work Phone: [facility] 02-21-2022 08:00-0400 Respiratory rate 16 /min Pacc 2 Work Phone: [facility] 02-21-2022 08:00-0400 SaO2% (BldA) [Mass fraction] 99 % Pacc 2 Work Phone: [facility] Encounters Encounter Date Encounter Type Care Provider Facility Start: 12-20-2023 End: 12-20-2023 ambulatory [facility] Facility:[facility] Start: 12-20-2023 End: 12-20-2023 Patient encounter procedure Fernando Odeni DO Work Phone: [facility] Procedures Date Procedure Procedure Detail Performing Clinician Start: 04-19-2023 Mammography Mammograph y Coordinator Start: 02-07-2023 Urnls dip stick/tabl et rgnt auto w/o microscopy Spenser Pan MD Work Phone: Start: 01-11-2023 Radiologic exam abdo men 1 view Spenser Pan MD Work Phone: Start: 11-29-2022 Urnls dip stick/tabl et rgnt auto w/o microscopy Spenser Pan MD Work Phone: Start: 11-22-2022 Ct abdomen & pelvis w/o contrast material Spenser Pan MD Work Phone: Start: 11-08-2022 Urnls dip stick/tabl et rgnt auto w/o microscopy Spenser Pan MD Work Phone: Start: 07-18-2022 INFLUENZA VACCINE QUADRIVALENT 6 MO - 64 YRS IM Fernando Yepez DO Work Phone: Start: 04-19-2022 Mammography Mammograph y Coordinator Start: 02-21-2022 Antibody screen Plan of Treatment Date Care Activity Detail Author Start: 07-18-2032 Urine microalbumin profile [facility] Start: 08-24-2026 HPV TESTING HPV TESTING [facility] Start: 08-24-2026 PAP TESTING PAP TESTING [facility] Start: 08-24-2026 Screening for malign ant neoplasm of cervix [facility] Start: 12-19-2024 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 Associate chidi Disease Visit Annual PCP Team Chronic Disease Visit [facility] Start: 12-19-2024 Hepatitis B Vaccine (1 of 3 - 3-dose series) Hepatitis B Vaccine (1 of 3 - 3-dose series) [facility] Immunizations Immunization Date Immunization Notes Care Provider Fa reyty 07-18-2022 influenza, injectabl e, quadrivalent, contains preservative Fernando Lucho DO Work Phone: [facility] 07-18-2022 pneumococcal (PCV20) vaccine, 20 valent (PREVNAR 20) Fernando Lucho DO Work Phone: [facility] 07-18-2022 tetanus toxoid, redu tessa diphtheria toxoid, and acellular pertussis vaccine, adsorbed Fernando Lucho DO Work Phone: [facility] 07-18-2022 pneumococcal Conjuga te, unspecified [facility] Work [facility]: [facility] Work Phone: 07-18-2022 influenza virus vaccine, unspecified formulation Fernando Lucho DO Work Phone: [facility] Payers Date Payer Category Payer Private Health Insurance [facility] [id number] 2021-Present [phone] [address] [place] [address] [facility] [id number] 2021 Private Health Insurance [facility] [id number] 2021-Present [phone] [address] [place] [address] O [id number] 2021 Unknown [id number] Social History Date Type Detail Facility Start: 08-13-2021 Tobacco smoking status VAIS Oc casional tobacco smoker [facility] Start: 08-13-2021 End: 04-19-2023 Cigarettes smoked current (pack per day) - Reported 1 [facility] Start: 08-13-2021 End: 07-18-2022 Tobacco use and exposure Smokeless tobacco non-user [facility] Start: 10-24-2021 End: 12-20-2023 Alcohol intake Current drinker of alcohol (finding) [facility] Start: 08-13-2021 History SDOH Alcohol Comment rare [facility] Start: 08-24-2021 Education 17 [facility] Start: 1980 Sex Assigned At Not on file [facility] Start: 12-22-2021 End: 07-18-2022 Exposure to SARS-CoV-2 (event) Not sure [facility] Start: 02-21-2022 End: 07-18-2022 Tobacco smoking status NHIS Smokes tobacco daily [facility] History of tobacco use Cigarette Smoker [facility] Start: 02-21-2022 End: 01-15-2023 History SDOH Alcohol Frequency 2 [facility] Start: 02-21-2022 End: 01-15-2023 History SDOH Alcohol Std Drinks 1 [facility] Start: 02-21-2022 History SDOH Alcohol Comment 0-1 monthly [facility] Start: 02-21-2022 End: 01-15-2023 History SDOH Social Connections Phone 5 [facility] Start: 02-21-2022 End: 01-15-2023 History SDOH Social Connections Living 8 [facility] Start: 01-14-2023 End: 04-19-2023 Social connection and isolation panel [facility] Frequency of Social Gatherings with Friends and Family Not on file [facility] Do you belong to any clubs or organizations such as scientology groups, unions, fraternal or athletic groups, or school groups? No [facility] Are you now , , , , never or living with a partner? Living with partner [facility] How often to you hav e a drink containing alcohol? Monthly or less [facility] How many standard dr inks containing alcohol do you have on a typical day? 1 or 2 [facility] How often do you hav e 6 or more drinks on 1 occasion? Never [facility] (I/We) worried adriano er (my/our) food would run out before (I/we) got money to buy more. Never true [facility] Clinical Notes 02-12-2022 to 12-20-2023 Fernando Yepez DO - 12/20/2023 10:25 AM ESTPatient InstructionsHeron Silveira MD - 05/13/2023 8:30 AM EDTLetter - Coordinator, Mammography - 04/21/2023 10:00 AM EDTPatient Instructions Note Date & Type Note Facility 12-20-2023 Note HNO ID: [id number] Author: FERNANDO YEPEZ DO Service: ? Author Type: Physician Type: Progress Notes Filed: 12/20/2023 10:51 Note Text: Periodic Health Examination Patient Name: Rad Eli Today's Date: December 20, 2023 CC: Wellness exam HPI: Rad Eli is an 43 year old female who presents for: Wellness exam Medical, surgical, family and social histories reviewed and updated below. 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 Has not given up the habit. Did not use the NRT. Engaged to be - lives with her fiancee Interested in breast cancer/skin cancer screenings today. Has some skin lesions she would like checked. Mammogram April 2023 IMPRESSION: NEGATIVE There is no mammographic evidence of malignancy. A 1 year screening mammogram is recommended. Component Latest Ref Rng AND Units 01/08/2023 01/31/2023 Protein, Total 6.3 - 8.0 g/dL 7.2 Albumin 3.9 - 4.9 g/dL 4.3 Calcium 8.5 - 10.2 mg/dL 9.3 9.4 Bilirubin, Total 0.2 - 1.3 mg/dL 0.4 Alkaline Phosphatase 34 - 123 U/L 73 AST 13 - 35 U/L 21 ALT 7 - 38 U/L 17 Glucose 74 - 99 mg/dL 108 (H) 111 (H) BUN 7 - 21 mg/dL 12 11 Creatinine 0.58 - 0.96 mg/dL 0.77 0.91 Sodium 136 - 144 mmol/L 136 139 Potassium 3.7 - 5.1 mmol/L 4.3 4.5 Chloride 97 - 105 mmol/L 101 107 (H) CO2 22 - 30 mmol/L 25 25 Anion Gap 9 - 18 mmol/L 10 7 (L) eGFR >=60 mL/min/1.73mA? 99 81 WBC 3.70 - 11.00 k/uL 6.08 RBC 3.90 - 5.20 m/uL 4.82 Hemoglobin 11.5 - 15.5 g/dL 14.5 Hematocrit 36.0 - 46.0 % 44.5 MCV 80.0 - 100.0 fL 92.3 MCH 26.0 - 34.0 pg 30.1 MCHC 30.5 - 36.0 g/dL 32.6 RDW-CV 11.5 - 15.0 % 12.3 Platelet Count 150 - 400 k/uL 313 MPV 9.0 - 12.7 fL 8.5 (L) Cholesterol, Total <200 mg/dL 163 Triglyceride <150 mg/dL 76 HDL Cholesterol >39 mg/dL 35 (L) Non HDL Cholesterol <130 mg/dL 128 Fasting Time hrs 12 VLDL Cholesterol <30 mg/dL 15 TC:HDL Ratio <5.10 4.66 LDL Cholesterol <100 mg/dL 113 (H) LDL:HDL Ratio <2.54 3.23 (H) TSH 0.270 - 4.200 mIU/L 1.910 PAST MEDICAL HISTORY Diagnosis Date Adenomyosis 10/20/2021 JOSEPH (acute kidney injury) (HCC) 03/08/2022 Anemia 03/08/2022 COVID 08/13/2021 COVID-19 03/08/2022 Hypertension, essential 07/18/2022 Pancreatitis 03/08/2022 Pelvic mass 03/08/2022 Uterine leiomyoma 07/18/2022 PAST SURGICAL HISTORY Procedure Laterality Date BREAST LUMPECTOMY HX Left 2000 benign L'SCOPE DX W/WO BRUSHINGS/WASHINGS 10/19/2021 Diagnostic laparascopy - canceled [facility] due to endoemtriosis, frozen posterior cul de sac LAP HYSTERECTOMY FOR UTERUS 250G OR LESS 03/09/2022 TONSILLECTOMY AND ADENOIDECTOMY WOUND CLOSURE 1997 right posterior arm plastic closure Current Outpatient Medications Medication Sig Dispense Refill ZENPEP 40,000-126,000- 168,000 unit delayed release capsule take 1 to 2 capsules WITH SNACKS AND 2 TO 3 CAPSULES WITH MEALS 390 capsule 3 metoprolol succinate ER (TOPROL XL) 50 mg 24 hr tablet take 1 tablet by mouth once daily 90 tablet 3 norethindrone (AYGESTIN) 5 mg tablet Take 1 tablet by mouth once daily. 90 tablet 3 Multivitamin capsule Take 1 capsule by mouth once daily. tqkjsl-siwcdlyk-jppcptg (ZENPEP) 10,000-32,000 -42,000 unit delayed release capsule Take by mouth three times daily with meals. nicotine (NICODERM CQ) 21 mg/24 hr Apply 1 Patch as directed every 24 hours for 14 days. 14 Patch 0 nicotine (NICODERM) 14 mg/24 hr Apply 1 Patch as directed every 24 hours for 14 days. 14 Patch 0 nicotine (NICODERM) 7 mg/24 hr Apply 1 Patch as directed every 24 hours. 42 Patch 0 No current facility-administered medications for this visit. FamHx: Reviewed FAMILY HISTORY Problem Relation Age of Onset Hypertension Father Heart disease Father Diabetes Father Obstructive Sleep Apnea Father other (atrial fib) Father Diabetes Paternal Grandfather Heart disease Paternal Grandfather SocHx: Reviewed Social History Tobacco Use Smoking status: Every Day Packs/day: 1.00 Years: 25.00 Additional pack years: 0.00 Total pack years: 25.00 Types: Cigarettes Smokeless tobacco: Never Vaping Use Vaping Use: Never used Substance Use Topics Alcohol use: Yes Comment: 0-1 monthly Drug use: Never Health Maintenance reviewed REVIEW OF SYSTEMS See HPI PHYSICAL EXAM BP 120/80 Pulse 70 Temp 36.9 ?C (98.4 ?F) Resp 20 Ht 168.9 cm (5' 6.5 ) Wt 96.2 kg (212 lb) LMP 09/02/2021 (Exact Date) SpO2 99% BMI 33.71 kg/m? Gen: Patient is pleasant, alert, and in no acute distress Head: Normocephalic, atraumatic Eyes: MI, EOMI, sclera anicteric ENT: No nasal discharge, no pharyngeal erythema or exudate Neck: Supple, no l (more content not included)... [facility] 12-20-2023 History of Presen t illness Narrative Periodic Health Examination Patient Name: Rad Eli Today's Date: December 20, 2023 CC: Wellness exam HPI: Rad Eli is an 43 year old female who presents for: Wellness exam Medical, surgical, family and social histories reviewed and updated below. 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 Has not given up the habit. Did not use the NRT. Engaged to be - lives with her fiancee Interested in breast cancer/skin cancer screenings today. Has some skin lesions she would like checked. Mammogram April 2023 IMPRESSION: NEGATIVE There is no mammographic evidence of malignancy. A 1 year screening mammogram is recommended. Component Latest Ref Rng & Units 01/08/2023 01/31/2023 Protein, Total 6.3 - 8.0 g/dL 7.2 Albumin 3.9 - 4.9 g/dL 4.3 Calcium 8.5 - 10.2 mg/dL 9.3 9.4 Bilirubin, Total 0.2 - 1.3 mg/dL 0.4 Alkaline Phosphatase 34 - 123 U/L 73 AST 13 - 35 U/L 21 ALT 7 - 38 U/L 17 Glucose 74 - 99 mg/dL 108 (H) 111 (H) BUN 7 - 21 mg/dL 12 11 Creatinine 0.58 - 0.96 mg/dL 0.77 0.91 Sodium 136 - 144 mmol/L 136 139 Potassium 3.7 - 5.1 mmol/L 4.3 4.5 Chloride 97 - 105 mmol/L 101 107 (H) CO2 22 - 30 mmol/L 25 25 Anion Gap 9 - 18 mmol/L 10 7 (L) eGFR >=60 mL/min/1.73m 99 81 WBC 3.70 - 11.00 k/uL 6.08 RBC 3.90 - 5.20 m/uL 4.82 Hemoglobin 11.5 - 15.5 g/dL 14.5 Hematocrit 36.0 - 46.0 % 44.5 MCV 80.0 - 100.0 fL 92.3 MCH 26.0 - 34.0 pg 30.1 MCHC 30.5 - 36.0 g/dL 32.6 RDW-CV 11.5 - 15.0 % 12.3 Platelet Count 150 - 400 k/uL 313 MPV 9.0 - 12.7 fL 8.5 (L) Cholesterol, Total <200 mg/dL 163 Triglyceride <150 mg/dL 76 HDL Cholesterol >39 mg/dL 35 (L) Non HDL Cholesterol <130 mg/dL 128 Fasting Time hrs 12 VLDL Cholesterol <30 mg/dL 15 TC:HDL Ratio <5.10 4.66 LDL Cholesterol <100 mg/dL 113 (H) LDL:HDL Ratio <2.54 3.23 (H) TSH 0.270 - 4.200 mIU/L 1.910 PAST MEDICAL HISTORY Diagnosis Date Adenomyosis 10/20/2021 JOSEPH (acute kidney injury) (HCC) 03/08/2022 Anemia 03/08/2022 COVID 08/13/2021 COVID-19 03/08/2022 Hypertension, essential 07/18/2022 Pancreatitis 03/08/2022 Pelvic mass 03/08/2022 Uterine leiomyoma 07/18/2022 PAST SURGICAL HISTORY Procedure Laterality Date BREAST LUMPECTOMY HX Left 2000 benign L'SCOPE DX W/WO BRUSHINGS/WASHINGS 10/19/2021 Diagnostic laparascopy - canceled TLH due to endoemtriosis, frozen posterior cul de sac LAP HYSTERECTOMY FOR UTERUS 250G OR LESS 03/09/2022 TONSILLECTOMY & ADENOIDECTOMY <AGE 12 WOUND CLOSURE 1997 right posterior arm plastic closure Current Outpatient Medications Medication Sig Dispense Refill ZENPEP 40,000-126,000- 168,000 unit delayed release capsule take 1 to 2 capsules WITH SNACKS AND 2 TO 3 CAPSULES WITH MEALS 390 capsule 3 metoprolol succinate ER (TOPROL XL) 50 mg 24 hr tablet take 1 tablet by mouth once daily 90 tablet 3 norethindrone (AYGESTIN) 5 mg tablet Take 1 tablet by mouth once daily. 90 tablet 3 Multivitamin capsule Take 1 capsule by mouth once daily. alqaxs-rsxdbxyf-oiflyco (ZENPEP) 10,000-32,000 -42,000 unit delayed release capsule Take by mouth three times daily with meals. nicotine (NICODERM CQ) 21 mg/24 hr Apply 1 Patch as directed every 24 hours for 14 days. 14 Patch 0 nicotine (NICODERM) 14 mg/24 hr Apply 1 Patch as directed every 24 hours for 14 days. 14 Patch 0 nicotine (NICODERM) 7 mg/24 hr Apply 1 Patch as directed every 24 hours. 42 Patch 0 No current facility-administered medications for this visit. FamHx: Reviewed FAMILY HISTORY Problem Relation Age of Onset Hypertension Father Heart disease Father Diabetes Father Obstructive Sleep Apnea Father other (atrial fib) Father Diabetes Paternal Grandfather Heart disease Paternal Grandfather SocHx: Reviewed Social History Tobacco Use Smoking status: Every Day Packs/day: 1.00 Years: 25.00 Additional pack years: 0.00 Total pack years: 25.00 Types: Cigarettes Smokeless tobacco: Never Vaping Use Vaping Use: Never used Substance Use Topics Alcohol use: Yes Comment: 0-1 monthly Drug use: Never Health Maintenance reviewed REVIEW OF SYSTEMS See HPI PHYSICAL EXAM BP 120/80 Pulse 70 Temp 36.9 C (98.4 F) Resp 20 Ht 168.9 cm (5' 6.5 ) Wt 96.2 kg (212 lb) LMP 09/02/2021 (Exact Date) SpO2 99% BMI 33.71 kg/m Gen: Patient is pleasant, alert, and in no acute distress Head: Normocephalic, atraumatic Eyes: MI, EOMI, sclera anicteric ENT: No nasal discharge, no pharyngeal erythema or exudate Neck: Supple, no lymphadenopathy, no thyromegaly CV: Regular rate and rhythm, normal S1/S2, no murmurs, rubs, or gallops Pulm: Clear to auscultation bilaterally, no wheezes, crackles, or rhonchi Abd: Soft, non-tender, non-distended. No masses or organomegaly Neuro: CN III-XII intact, no involuntary movements. Strength 5/5 upper and lower extremities. Sensation intact bilaterally. Extrem: No cyanosis, clubbing, or edema Skin: Warm, dry, no visible rashes, keratotic follicular papules over the b/l UEs/LEs. Dermatofibromas on the LEs (1 per leg). Hdz papules and melanocytic nevi over the trunk and UEs/LEs. BREASTS: Symmetrical to inspection., No dimpling or skin changes., dense consistency, no palpable masses., Normal nipples without discharge., No axillary lymphadenopathy. Exam Chaperoned by Amina Bowling MA ASSESSMENT & PLAN 43 year old female here ASSESSMENT/PLAN: 1. Wellness examination - ICD9: V70.0, ICD10: Z00.00 (primary diagnosis) - Counseled on healthy diet and regular exercise - Mammogram ordered - exam recommended once yearly 2. Screening for endocrine, metabolic and immunity disorder - ICD9: V77.99, ICD10: Z13.29, Z13.228, Z13.0 - COMP METABOLIC PANEL - CBC - LIPID PANEL BASIC 3. Hypertension, essential - ICD9: 401.9, ICD10: I10 - Controlled - Continue current medications - Recommend home blood pressure monitoring, to bring results to next visit - Encouraged sodium restriction, DASH or Mediterranean diet - Recommend regular aerobic exercise - Discussed need for and benefit of weight loss. BMI 33.71 kg/(m^2) 4. Obesity (BMI 30.0-34.9) - ICD9: 278.00, ICD10: E66.9 importance of diet and exercise discussed with patient Discussed the AHA/ACC recommendation of 150 minutes per week of moderate intensity aerobic exercise Recommended avoidance of refined carbohydrates and alcohol 5. Tobacco use disorder - ICD9: 305.1, ICD10: F17.200 - Cessation encouraged. - Physiologic and physical aspects of tobacco addiction as well as strategies for quitting were discussed. - Counseling was given focusing on the harmful effects of this addiction especially given the patient's medical condition(s) which will be worsened because of the chemicals in tobacco. - Counseling was given 3-4 minutes. - pre-contemplative phase 6. Skin lesion - ICD9: 709.9, ICD10: L98.9 No suspicious lesions seen. Continue to monitor for suspicious skin lesions. 7. Encounter for screening mammogram for malignant neoplasm of breast - ICD9: V76.12, ICD10: Z12.31 - Completed breast exam - Follow up for annual exam in one year. - TERESA SCREENING W LOLI 8. Keratosis pilaris - ICD9: 757.39, ICD10: L85.8 Try OTC wash with salicyclic acid 9. Dense breast tissue - ICD9: 793.82, ICD10: R92.30 - TERESA SCREENING W LOLI Fernando Lucho, DO December 20, 2023 10:26 AM Follow up in 1 year for annual physical documented in this encounter [facility] 12-03-2023 Note Patient Outreach (IN [facility]) RAD ELI ([id number]) 1980 F Date Time Provider Department 12/03/23 FERNANDO YEPEZ During your visit today, we recorded the following information about you: Allergies As of Date: 12/03/2023 Noted Allergy Reaction BIAXIN (CLARITHROMYCIN) 08/24/2021 10 - Anaphylaxis CECLOR (CEFACLOR) 09/11/2019 4 - Hives SULFAMETHOXAZOLE-TRIMETHOPRIM 09/11/2019 4 - Hives Date Reviewed: 05/13/2023 Reviewed by: Patricia Davies RN - Fully Assessed Visit Diagnosis:Hypertension, essential [I10] Order(s):BASIC METABOLIC PNL [SQBMP] Order #: [id number] FUTURE Prescriptions as of 12/06/2023 - ZENPEP 40,000-126,000- 168,000 unit delayed release capsule take 1 to 2 capsules WITH SNACKS AND 2 TO 3 CAPSULES WITH MEALS - metoprolol succinate ER (TOPROL XL) 50 mg 24 hr tablet take 1 tablet by mouth once daily - norethindrone (AYGESTIN) 5 mg tablet Take 1 tablet by mouth once daily. - eswgfc-azpexhqf-ldrxlxh (ZENPEP) 10,000-32,000 -42,000 unit delayed release capsule Take by mouth three times daily with meals. - nicotine (NICODERM CQ) 21 mg/24 hr Apply 1 Patch as directed every 24 hours for 14 days. - nicotine (NICODERM) 14 mg/24 hr Apply 1 Patch as directed every 24 hours for 14 days. - nicotine (NICODERM) 7 mg/24 hr Apply 1 Patch as directed every 24 hours. - Multivitamin capsule Take 1 capsule by mouth once daily. Problem List As Of Date 12/03/2023 Noted Resolved NEGATIVE MEDICAL HISTORY 08/24/2021 03/08/2022 Endometriosis of peritoneum [N80.30] 10/20/2021 Endometriosis of right ovary [N80.101] 10/20/2021 Adenomyosis [N80.03] 10/20/2021 07/18/2022 Blood pressure elevated without history of HTN *02/21/2022 03/08/2022 COVID-19 [U07.1] 03/08/2022 07/18/2022 Anemia [D64.9] 03/08/2022 07/18/2022 JOSEPH (acute kidney injury) (HCC) [N17.9] 03/08/2022 07/18/2022 Pancreatitis [K85.90] 03/08/2022 07/18/2022 Pelvic mass [R19.00] 03/08/2022 07/18/2022 Hypertension, essential [I10] 07/18/2022 History of pancreatitis [Z87.19] 07/18/2022 Uterine leiomyoma [D25.9] 07/18/2022 07/18/2022 Tobacco use disorder [F17.200] 07/18/2022 Dyshidrotic eczema [L30.1] 07/18/2022 Encounter Status:Closed by [employer], PRODUSER on 12/06/23 [facility] 05-13-2023 Note HNO ID: [id number] Author: Heron Silveira MD Service: ? Author Type: Physician Type: Progress Notes Filed: 05/13/2023 10:08 AM Note Text: [facility] SECTION FOR MINIMALLY INVASIVE GYNECOLOGIC SURGERY OUTPATIENT VISIT DATE 05/13/2023 OUTPATIENT VISIT TYPE ESTABLISHED PRIMARY CARE PHYSICIAN: Fernando Palacio[address] [place] [id number] CHIEF COMPLAINT: Follow Up HISTORY OF PRESENT ILLNESS: Rad Eli is a pleasant 42 year old female who presents for management of dyspareunia, vaginal spotting with a PMHx significant for endometriosis, s/p hysterectomy. She was last seen in clinic on 11/13/2022. At that time, she was experiencing spotting unrelated to her dyspareunia. Noted tension of the pelvic floor. The plan at her last visit included: PLAN: - Refill Aygestin Rx. - Order PFPT consult. - Follow up in 6 months. In clinic today, pt reports doing well, with no complaints. IMAGING/LABS: CT ABD/PEL 11/22/2022 IMPRESSION: No acute abnormality or obstructive uropathy. Several nonobstructing bilateral renal stones. No ureter stones. Pelvis: No free pelvic fluid. No unenhanced CT evidence for obvious pelvic mass. Unremarkable CT appearance of the decompressed urinary bladder . The uterus is surgically absent. Past Medical History: PAST MEDICAL HISTORY Diagnosis Date Adenomyosis 10/20/2021 JOSEPH (acute kidney injury) (HCC) 03/08/2022 Anemia 03/08/2022 COVID 08/13/2021 COVID-19 03/08/2022 Hypertension, essential 07/18/2022 Pancreatitis 03/08/2022 Pelvic mass 03/08/2022 Uterine leiomyoma 07/18/2022 Past Surgical History: PAST SURGICAL HISTORY Procedure Laterality Date BREAST LUMPECTOMY HX Left 2000 benign L'SCOPE DX W/WO BRUSHINGS/WASHINGS 10/19/2021 Diagnostic laparascopy - canceled [facility] due to endoemtriosis, frozen posterior cul de sac LAP HYSTERECTOMY FOR UTERUS 250G OR LESS 03/09/2022 TONSILLECTOMY AND ADENOIDECTOMY WOUND CLOSURE 1998 right posterior arm plastic closure Family History: FAMILY HISTORY Problem Relation Age of Onset Hypertension Father Heart disease Father Diabetes Father Obstructive Sleep Apnea Father other (atrial fib) Father Diabetes Paternal Grandfather Heart disease Paternal Grandfather Social History: Social History Tobacco Use Smoking status: Every Day Packs/day: 1.00 Years: 25.00 Total pack years: 25.00 Types: Cigarettes Smokeless tobacco: Never Vaping Use Vaping Use: Never used Substance Use Topics Alcohol use: Yes Comment: 0-1 monthly Drug use: Never Current Outpatient Medications Medication Sig ZENPEP 40,000-126,000- 168,000 unit delayed release capsule take 1 to 2 capsules WITH SNACKS AND 2 TO 3 CAPSULES WITH MEALS norethindrone (AYGESTIN) 5 mg tablet Take 1 tablet by mouth once daily. metoprolol succinate ER (TOPROL XL) 50 mg 24 hr tablet Take 1 tablet by mouth once daily. Multivitamin capsule Take 1 capsule by mouth once daily. jxsdbe-qmdupvti-snabncq (ZENPEP) 10,000-32,000 -42,000 unit delayed release capsule Take by mouth three times daily with meals. nicotine (NICODERM CQ) 21 mg/24 hr Apply 1 Patch as directed every 24 hours for 14 days. nicotine (NICODERM) 14 mg/24 hr Apply 1 Patch as directed every 24 hours for 14 days. nicotine (NICODERM) 7 mg/24 hr Apply 1 Patch as directed every 24 hours. No current facility-administered medications for this visit. Allergies As of Date: 05/13/2023 Allergen Noted Reaction BIAXIN [CLARITHROMYCIN] 08/24/2021 Anaphylaxis CECLOR [CEFACLOR] 09/11/2019 Hives SULFAMETHOXAZOLE-TRIMETHOPRIM 09/11/2019 Hives Fully Assessed 05/13/2023 REVIEW OF SYSTEMS: POSITIVES IN BOLD Per HPI PHYSICAL EXAMINATION: Vital Signs: 05/13/23 0837 BP: 146/93 Pulse: 72 Weight: 96.5 kg (212 lb 12.8 oz) Height: 167.6 cm (5' 6 ) General appearance: Well appearing, alert, in no acute distress, well-hydrated, well nourished. Skin: Skin color, texture, turgor normal, no suspicious rashes or lesions Abdomen: Normal abdominal exam, Abdomen soft, non-tender. Bowel sounds normal. No masses, organomegaly see below PELVIC EXAMINATION: Def IMPRESSION: Rad Eli is a 42 year old female who presents with S/p hysterectomy Endometriosis. We discussed that as the Aygestin is working well, she can continue her current regimen. I will refill her medication for her. Advised pt on the timing between her yearly pap smears she will need. I explained that further testing and management is based on her symptoms, and if she has a recurrence, we can order imaging for evaluation. Pt is receptive to following up in one year. PLAN: - Pt to follow up in one year for continued monitoring. Written and verbal health teaching given to patient, patient verbalizes understanding and agrees with treatment plan. I spent 5 minutes in the visit, with more than 50% o (more content not included)... [facility] 05-13-2023 Instructions Elidia Parra - 05/13/2023 8:58 AM EDT [employer] [phone] OFFICE [phone] [id number] [employer] [facility] SURGICAL SCHEDULERS If you have any additional questions or concerns not covered in today's visit, I encourage you to reach out via [employer] messaging. Please note that [employer] inquiries may take up to 3 days to be answered by on-call staff, and may not be reviewed by your physician until after the message has been triaged. documented in this encounter [facility] 05-13-2023 History of Presen t illness Narrative Images from the original note were not included. [facility] SECTION FOR MINIMALLY INVASIVE GYNECOLOGIC SURGERY OUTPATIENT VISIT DATE 05/13/2023 OUTPATIENT VISIT TYPE ESTABLISHED PRIMARY CARE PHYSICIAN: Fernando Yepez [address] [place] [id number] CHIEF COMPLAINT: Follow Up HISTORY OF PRESENT ILLNESS: Rad Eli is a pleasant 42 year old female who presents for management of dyspareunia, vaginal spotting with a PMHx significant for endometriosis, s/p hysterectomy. She was last seen in clinic on 11/13/2022. At that time, she was experiencing spotting unrelated to her dyspareunia. Noted tension of the pelvic floor. The plan at her last visit included: PLAN: - Refill Aygestin Rx. - Order PFPT consult. - Follow up in 6 months. In clinic today, pt reports doing well, with no complaints. IMAGING/LABS: CT ABD/PEL 11/22/2022 IMPRESSION: No acute abnormality or obstructive uropathy. Several nonobstructing bilateral renal stones. No ureter stones. Pelvis: No free pelvic fluid. No unenhanced CT evidence for obvious pelvic mass. Unremarkable CT appearance of the decompressed urinary bladder . The uterus is surgically absent. Past Medical History: PAST MEDICAL HISTORY Diagnosis Date Adenomyosis 10/20/2021 JOSEPH (acute kidney injury) (HCC) 03/08/2022 Anemia 03/08/2022 COVID 08/13/2021 COVID-19 03/08/2022 Hypertension, essential 07/18/2022 Pancreatitis 03/08/2022 Pelvic mass 03/08/2022 Uterine leiomyoma 07/18/2022 Past Surgical History: PAST SURGICAL HISTORY Procedure Laterality Date BREAST LUMPECTOMY HX Left 2000 benign L'SCOPE DX W/WO BRUSHINGS/WASHINGS 10/19/2021 Diagnostic laparascopy - canceled [facility] due to endoemtriosis, frozen posterior cul de sac LAP HYSTERECTOMY FOR UTERUS 250G OR LESS 03/09/2022 TONSILLECTOMY & ADENOIDECTOMY <AGE 12 WOUND CLOSURE 1997 right posterior arm plastic closure Family History: FAMILY HISTORY Problem Relation Age of Onset Hypertension Father Heart disease Father Diabetes Father Obstructive Sleep Apnea Father other (atrial fib) Father Diabetes Paternal Grandfather Heart disease Paternal Grandfather Social History: Social History Tobacco Use Smoking status: Every Day Packs/day: 1.00 Years: 25.00 Total pack years: 25.00 Types: Cigarettes Smokeless tobacco: Never Vaping Use Vaping Use: Never used Substance Use Topics Alcohol use: Yes Comment: 0-1 monthly Drug use: Never Current Outpatient Medications Medication Sig ZENPEP 40,000-126,000- 168,000 unit delayed release capsule take 1 to 2 capsules WITH SNACKS AND 2 TO 3 CAPSULES WITH MEALS norethindrone (AYGESTIN) 5 mg tablet Take 1 tablet by mouth once daily. metoprolol succinate ER (TOPROL XL) 50 mg 24 hr tablet Take 1 tablet by mouth once daily. Multivitamin capsule Take 1 capsule by mouth once daily. gdleqt-niwwsizd-scxlqsn (ZENPEP) 10,000-32,000 -42,000 unit delayed release capsule Take by mouth three times daily with meals. nicotine (NICODERM CQ) 21 mg/24 hr Apply 1 Patch as directed every 24 hours for 14 days. nicotine (NICODERM) 14 mg/24 hr Apply 1 Patch as directed every 24 hours for 14 days. nicotine (NICODERM) 7 mg/24 hr Apply 1 Patch as directed every 24 hours. No current facility-administered medications for this visit. Allergies As of Date: 05/13/2023 Allergen Noted Reaction BIAXIN [CLARITHROMYCIN] 08/24/2021 Anaphylaxis CECLOR [CEFACLOR] 09/11/2019 Hives SULFAMETHOXAZOLE-TRIMETHOPRIM 09/11/2019 Hives Fully Assessed 05/13/2023 REVIEW OF SYSTEMS: POSITIVES IN BOLD Per HPI PHYSICAL EXAMINATION: Vital Signs: 05/13/23 0837 BP: 146/93 Pulse: 72 Weight: 96.5 kg (212 lb 12.8 oz) Height: 167.6 cm (5' 6 ) General appearance: Well appearing, alert, in no acute distress, well-hydrated, well nourished. Skin: Skin color, texture, turgor normal, no suspicious rashes or lesions Abdomen: Normal abdominal exam, Abdomen soft, non-tender. Bowel sounds normal. No masses, organomegaly see below PELVIC EXAMINATION: Def IMPRESSION: Rad Eli is a 42 year old female who presents with S/p hysterectomy Endometriosis. We discussed that as the Aygestin is working well, she can continue her current regimen. I will refill her medication for her. Advised pt on the timing between her yearly pap smears she will need. I explained that further testing and management is based on her symptoms, and if she has a recurrence, we can order imaging for evaluation. Pt is receptive to following up in one year. PLAN: - Pt to follow up in one year for continued monitoring. Written and verbal health teaching given to patient, patient verbalizes understanding and agrees with treatment plan. I spent 5 minutes in the visit, with more than 50% of the total sbdj-yg-nhec time of the visit in counseling / coordination of care. I personally interviewed, confirmed and edited the above information if obtained by others. Scribe Attestation: By signing my name below, I, Elidia Parra, attest that this documentation has been prepared under the direction and in the presence of Dr. Heron Denson MD. Electronically Signed:kathleen Berger, May 10, 2023 9:02 AM Heron Chavarria MD documented in this encounter [facility] 04-21-2023 Miscellaneous Notes April 22, 2023 PID: [id number] Rad Eli [address] [place] [address] Dear Ms. Eli, We are pleased to inform you that the results of your recent breast imaging exam on 04/19/2023 are normal. Early detection of cancer is very important. We also understand recommendations regarding breast cancer screening are controversial. Please discuss with your primary care provider which strategy is best for you and whether a mammogram is right for you. Your imaging studies and report will be kept on file at [facility] as part of your permanent medical record and are available for your continuing care. Thank you for allowing us to help in meeting your health care needs. Sincerely, Dr. Koroma Interpreting Radiologist [facility] (Normal over 40) documented in this encounter [facility] 04-19-2023 Note HNO ID: [id number] Author: RT Winnie(R) Service: ? Author Type: Technologist Type: Progress Notes Filed: 04/19/2023 8:52 AM Note Text: Radiology Service Progress Note PATIENT NAME: Rad Eli DATE OF SERVICE: April 19, 2023 TIME: 8:52 AM PATIENT IDENTITY VERIFICATION COMPLETED USING TWO (2) IDENTIFIERS: Name and Date of confirmed by patient verbally. FALL SCREENING: Has the patient had 2 falls in the last year or 1 fall with injury or currently using an Ambulatory Assistive Device (Walker, Cane, Wheelchair, Crutches, etc.)? No PATIENT GENDER DATA: Female. status: : No status: NO. PATIENT RELEVANT IMPLANT DATA REVIEWED: Not Applicable RADIOLOGY DEPARTMENT: Mammography PERIPHERAL IV DATA: Not applicable SIGNED BY: RT Winnie(R) April 19, 2023 8:52 AM [facility] 02-07-2023 Note HNO ID: [id number] Author: Spenser Pan Jr., MD Service: ? Author Type: Physician Type: Progress Notes Filed: 02/07/2023 11:03 AM Note Text: ESTABLISHED PATIENT OFFICE VISIT HPI Rad Eli is a 42 year old female who presents ho kidney stones. No recent imaging. Has had some flank pain on and off. No fever. No uti. No luts. 11/29/22 - having some R flank pain when lies down. Ct reviewed. 10 mm R renal calc. 1200HU's. Kub+. No fever. No uti. Options discussed. 02/07/23 - sp L ESWL. Doing well. No fever. No uti. Did not pass anything. Kub negative. Stone prevention discussed. LAB: Creatinine Date Value Ref Range Status 01/31/2023 0.91 0.58 - 0.96 mg/dL Final No results found for: PSA Glucose, Urine (no units) Date Value 08/13/2021 Negative Bilirubin, Urine (no units) Date Value 08/13/2021 Negative Ketones, Urine (no units) Date Value 08/13/2021 Negative Specific [place], Ur (no units) Date Value 08/13/2021 1.015 Hemoglobin/Blood,Ur (no units) Date Value 08/13/2021 2+ pH, Urine (no units) Date Value 08/13/2021 6.0 Protein, Urine (no units) Date Value 08/13/2021 Comment: Visible blood causes falsely elevated results for analyte Protein. Due to this limitation, Protein will not be reported for patients whose urine contains visible blood. Nitrites (no units) Date Value 08/13/2021 Negative WBC, Urine (no units) Date Value 08/13/2021 11-25 /HPF MEDICATIONS: ZENPEP 40,000-126,000- 168,000 unit delayed release capsule take 1 to 2 capsules WITH SNACKS AND 2 TO 3 CAPSULES WITH MEALS norethindrone (AYGESTIN) 5 mg tablet Take 1 tablet by mouth once daily. metoprolol succinate ER (TOPROL XL) 50 mg 24 hr tablet Take 1 tablet by mouth once daily. Multivitamin capsule Take 1 capsule by mouth once daily. rokabn-wmzzpfjl-ajyvfvy (ZENPEP) 10,000-32,000 -42,000 unit delayed release capsule Take by mouth three times daily with meals. nicotine (NICODERM CQ) 21 mg/24 hr Apply 1 Patch as directed every 24 hours for 14 days. nicotine (NICODERM) 14 mg/24 hr Apply 1 Patch as directed every 24 hours for 14 days. nicotine (NICODERM) 7 mg/24 hr Apply 1 Patch as directed every 24 hours. REVIEW OF SYSTEMS Review of Systems Constitutional: Negative. Respiratory: Negative. Cardiovascular: Negative. Gastrointestinal: Negative. Genitourinary: Negative. Skin: Negative. Neurological: Negative. Psychiatric/Behavioral: Negative. HISTORIES PAST MEDICAL HISTORY Diagnosis Date Adenomyosis 10/20/2021 JOSEPH (acute kidney injury) (HCC) 03/08/2022 Anemia 03/08/2022 COVID 08/13/2021 COVID-19 03/08/2022 Hypertension, essential 07/18/2022 Pancreatitis 03/08/2022 Pelvic mass 03/08/2022 Uterine leiomyoma 07/18/2022 FAMILY HISTORY Problem Relation Age of Onset Hypertension Father Heart disease Father Diabetes Father Obstructive Sleep Apnea Father other (atrial fib) Father Diabetes Paternal Grandfather Heart disease Paternal Grandfather SOCIAL HISTORY Social History Tobacco Use Smoking status: Every Day Packs/day: 1.00 Years: 25.00 Pack years: 25.00 Types: Cigarettes Smokeless tobacco: Never Vaping Use Vaping Use: Never used Substance Use Topics Alcohol use: Yes Comment: 0-1 monthly Drug use: Never PHYSICAL EXAMINATION General appearance: Well appearing, alert, in no acute distress, and well-hydrated, well nourished Skin: Skin color, texture, turgor normal, no suspicious rashes or lesions Respiratory:+ effort Cardiovascular: Not examined GI: Normal abdominal exam, Abdomen soft, non-tender. No masses, organomegaly Musculoskeletal: Negative Neuro: Negative Genitourinary: not examined Impression: (N20.0) Kidney stone (primary encounter diagnosis) Plan: 1 year Kub prior Stone prevention Spenser Pan Jr, MD 02/07/2023 [facility] 02-07-2023 History of Presen t illness Narrative ESTABLISHED PATIENT OFFICE VISIT HPI Rad Eli is a 42 year old female who presents ho kidney stones. No recent imaging. Has had some flank pain on and off. No fever. No uti. No luts. 11/29/22 - having some R flank pain when lies down. Ct reviewed. 10 mm R renal calc. 1200HU's. Kub+. No fever. No uti. Options discussed. 02/07/23 - sp L ESWL. Doing well. No fever. No uti. Did not pass anything. Kub negative. Stone prevention discussed. LAB: Creatinine Date Value Ref Range Status 01/31/2023 0.91 0.58 - 0.96 mg/dL Final No results found for: PSA Glucose, Urine (no units) Date Value 08/13/2021 Negative Bilirubin, Urine (no units) Date Value 08/13/2021 Negative Ketones, Urine (no units) Date Value 08/13/2021 Negative Specific [place], Ur (no units) Date Value 08/13/2021 1.015 Hemoglobin/Blood,Ur (no units) Date Value 08/13/2021 2+ pH, Urine (no units) Date Value 08/13/2021 6.0 Protein, Urine (no units) Date Value 08/13/2021 Comment: Visible blood causes falsely elevated results for analyte Protein. Due to this limitation, Protein will not be reported for patients whose urine contains visible blood. Nitrites (no units) Date Value 08/13/2021 Negative WBC, Urine (no units) Date Value 08/13/2021 11-25 /HPF MEDICATIONS: ZENPEP 40,000-126,000- 168,000 unit delayed release capsule take 1 to 2 capsules WITH SNACKS AND 2 TO 3 CAPSULES WITH MEALS norethindrone (AYGESTIN) 5 mg tablet Take 1 tablet by mouth once daily. metoprolol succinate ER (TOPROL XL) 50 mg 24 hr tablet Take 1 tablet by mouth once daily. Multivitamin capsule Take 1 capsule by mouth once daily. ikblky-lhwnough-vkdzxct (ZENPEP) 10,000-32,000 -42,000 unit delayed release capsule Take by mouth three times daily with meals. nicotine (NICODERM CQ) 21 mg/24 hr Apply 1 Patch as directed every 24 hours for 14 days. nicotine (NICODERM) 14 mg/24 hr Apply 1 Patch as directed every 24 hours for 14 days. nicotine (NICODERM) 7 mg/24 hr Apply 1 Patch as directed every 24 hours. REVIEW OF SYSTEMS Review of Systems Constitutional: Negative. Respiratory: Negative. Cardiovascular: Negative. Gastrointestinal: Negative. Genitourinary: Negative. Skin: Negative. Neurological: Negative. Psychiatric/Behavioral: Negative. HISTORIES PAST MEDICAL HISTORY Diagnosis Date Adenomyosis 10/20/2021 JOSEPH (acute kidney injury) (HCC) 03/08/2022 Anemia 03/08/2022 COVID 08/13/2021 COVID-19 03/08/2022 Hypertension, essential 07/18/2022 Pancreatitis 03/08/2022 Pelvic mass 03/08/2022 Uterine leiomyoma 07/18/2022 FAMILY HISTORY Problem Relation Age of Onset Hypertension Father Heart disease Father Diabetes Father Obstructive Sleep Apnea Father other (atrial fib) Father Diabetes Paternal Grandfather Heart disease Paternal Grandfather SOCIAL HISTORY Social History Tobacco Use Smoking status: Every Day Packs/day: 1.00 Years: 25.00 Pack years: 25.00 Types: Cigarettes Smokeless tobacco: Never Vaping Use Vaping Use: Never used Substance Use Topics Alcohol use: Yes Comment: 0-1 monthly Drug use: Never PHYSICAL EXAMINATION General appearance: Well appearing, alert, in no acute distress, and well-hydrated, well nourished Skin: Skin color, texture, turgor normal, no suspicious rashes or lesions Respiratory:+ effort Cardiovascular: Not examined GI: Normal abdominal exam, Abdomen soft, non-tender. No masses, organomegaly Musculoskeletal: Negative Neuro: Negative Genitourinary: not examined Impression: (N20.0) Kidney stone (primary encounter diagnosis) Plan: 1 year Kub prior Stone prevention Spenser Pan Jr, MD 02/07/2023 documented in this encounter [facility] 02-07-2023 Instructions Spenser Pan Jr., MD - 02/07/2023 8:42 AM EDT Counseled patient on increasing fluids, avoiding salt, avoiding caffeine, avoiding large portions of animal fat/meats at one time and increasing citrates in diet. documented in this encounter [facility] 01-16-2023 Note HNO ID: [id number] Author: Fernando Yepez, DO Service: ? Author Type: Physician Type: Progress Notes Filed: 01/16/2023 8:25 AM Note Text: CC: follow up S: 42 year old female with history below presents for follow up. Had ESWL last week for renal stones Uncertain whether she passed them HTN Last 3 Encounter BP Readings: Date: BP: 01/16/2023 122/72 01/11/2023 101/66 12/06/2022 138/92 No CP, SOB, dizziness, lightheadedness, palpitations, vision changes. Smoking under 1 PPD Has NRT at home- did not start using it. Still contemplating quitting. 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 90 tablet 1 snoczt-meevuwsr-odupprs (ZENPEP) 10,000-32,000 -42,000 unit delayed release capsule Take by mouth three times daily with meals. metoprolol succinate ER (TOPROL XL) 50 mg 24 hr tablet Take 1 tablet by mouth once daily. 90 tablet 3 nicotine (NICODERM CQ) 21 mg/24 hr Apply 1 Patch as directed every 24 hours for 14 days. 14 Patch 0 nicotine (NICODERM) 14 mg/24 hr Apply 1 Patch as directed every 24 hours for 14 days. 14 Patch 0 nicotine (NICODERM) 7 mg/24 hr Apply 1 Patch as directed every 24 hours. 42 Patch 0 Multivitamin capsule Take 1 capsule by mouth once daily. No current facility-administered medications for this visit. SOCIAL (pertinent): Social History Tobacco Use Smoking status: Every Day Packs/day: 1.00 Years: 25.00 Pack years: 25.00 Types: Cigarettes Smokeless tobacco: Never Vaping Use Vaping Use: Never used Substance Use Topics Alcohol use: Yes Comment: 0-1 monthly Drug use: Never FAMILY (pertinent): FAMILY HISTORY Problem Relation Age of Onset Hypertension Father Heart disease Father Diabetes Father Obstructive Sleep Apnea Father other (atrial fib) Father Diabetes Paternal Grandfather Heart disease Paternal Grandfather ROS: See HPI O: PHYSICAL EXAM: BP 122/72 Pulse 70 Ht 168.9 cm (5' 6.5 ) Wt 95.3 kg (210 lb) LMP 09/02/2021 (Exact Date) SpO2 99% BMI 33.39 kg/m? Gen: Patient is pleasant, alert, NAD, well appearing Head: Normocephalic, atraumatic CV: Regular rate and rhythm, normal S1/S2, no murmurs, rubs Pulm: Clear to auscultation bilaterally, no wheezes, crackles, or rhonchi Neuro: EOMI, no involuntary movements. Extrem: No cyanosis, clubbing, or edema. Distal pulses equal and palpable b/l Skin: Warm, dry, no visible rashes BREASTS: Symmetrical to inspection., No dimpling or skin changes., dense consistency, no palpable masses., Normal nipples without discharge., No axillary lymphadenopathy. Exam Chaperoned by Jesenia Burch MA A/P: 42 year old female with ASSESSMENT/PLAN: 1. Hypertension, essential - ICD9: 401.9, ICD10: I10 (primary diagnosis) - good control - Continue current medication(s) - Encouraged dietary sodium restriction/DASH diet - Recommended regular aerobic exercise. - Recommend home blood pressure monitoring, to bring results in on next visit - Discussed need and benefit for weight loss. - Goal of BP <130/80 - COMP METABOLIC PANEL - TSH BLD - CBC - LIPID PANEL BASIC 2. Tobacco use disorder - ICD9: 305.1, ICD10: F17.200 - Cessation encouraged. - Physiologic and physical aspects of tobacco addiction as well as strategies for quitting were discussed. - Counseling was given focusing on the harmful effects of this addiction especially given the patient's medical condition(s) which will be worsened because of the chemicals in tobacco. - Counseling was given 3-4 minutes. - reinforced recommendation to quit using NRT. Patient still not ready to quit. 3. Screening for lipid disorders - ICD9: V77.91, ICD10: Z13.220 - LIPID PANEL BASIC 4. Encounter for screening mammogram for malignant neoplasm of breast - ICD9: V76.12, ICD10: Z12.31 - Completed breast exam - Encouraged monthly BSE - Follow up for annual exam in one year. - TERESA SCREENING W LOLI Yepez January 16, 2023 8:09 AM Follow up in 1 year for annual physical [facility] 01-16-2023 History of Presen t illness Narrative CC: follow up S: 42 year old female with history below presents for follow up. Had ESWL last week for renal stones Uncertain whether she passed them HTN Last 3 Encounter BP Readings: Date: BP: 01/16/2023 122/72 01/11/2023 101/66 12/06/2022 138/92 No CP, SOB, dizziness, lightheadedness, palpitations, vision changes. Smoking under 1 PPD Has NRT at home- did not start using it. Still contemplating quitting. 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 90 tablet 1 nzzfrw-tgbhajrs-dujqdnh (ZENPEP) 10,000-32,000 -42,000 unit delayed release capsule Take by mouth three times daily with meals. metoprolol succinate ER (TOPROL XL) 50 mg 24 hr tablet Take 1 tablet by mouth once daily. 90 tablet 3 nicotine (NICODERM CQ) 21 mg/24 hr Apply 1 Patch as directed every 24 hours for 14 days. 14 Patch 0 nicotine (NICODERM) 14 mg/24 hr Apply 1 Patch as directed every 24 hours for 14 days. 14 Patch 0 nicotine (NICODERM) 7 mg/24 hr Apply 1 Patch as directed every 24 hours. 42 Patch 0 Multivitamin capsule Take 1 capsule by mouth once daily. No current facility-administered medications for this visit. SOCIAL (pertinent): Social History Tobacco Use Smoking status: Every Day Packs/day: 1.00 Years: 25.00 Pack years: 25.00 Types: Cigarettes Smokeless tobacco: Never Vaping Use Vaping Use: Never used Substance Use Topics Alcohol use: Yes Comment: 0-1 monthly Drug use: Never FAMILY (pertinent): FAMILY HISTORY Problem Relation Age of Onset Hypertension Father Heart disease Father Diabetes Father Obstructive Sleep Apnea Father other (atrial fib) Father Diabetes Paternal Grandfather Heart disease Paternal Grandfather ROS: See HPI O: PHYSICAL EXAM: BP 122/72 Pulse 70 Ht 168.9 cm (5' 6.5 ) Wt 95.3 kg (210 lb) LMP 09/02/2021 (Exact Date) SpO2 99% BMI 33.39 kg/m Gen: Patient is pleasant, alert, NAD, well appearing Head: Normocephalic, atraumatic CV: Regular rate and rhythm, normal S1/S2, no murmurs, rubs Pulm: Clear to auscultation bilaterally, no wheezes, crackles, or rhonchi Neuro: EOMI, no involuntary movements. Extrem: No cyanosis, clubbing, or edema. Distal pulses equal and palpable b/l Skin: Warm, dry, no visible rashes BREASTS: Symmetrical to inspection., No dimpling or skin changes., dense consistency, no palpable masses., Normal nipples without discharge., No axillary lymphadenopathy. Exam Chaperoned by Jesenia Burch MA A/P: 42 year old female with ASSESSMENT/PLAN: 1. Hypertension, essential - ICD9: 401.9, ICD10: I10 (primary diagnosis) - good control - Continue current medication(s) - Encouraged dietary sodium restriction/DASH diet - Recommended regular aerobic exercise. - Recommend home blood pressure monitoring, to bring results in on next visit - Discussed need and benefit for weight loss. - Goal of BP <130/80 - COMP METABOLIC PANEL - TSH BLD - CBC - LIPID PANEL BASIC 2. Tobacco use disorder - ICD9: 305.1, ICD10: F17.200 - Cessation encouraged. - Physiologic and physical aspects of tobacco addiction as well as strategies for quitting were discussed. - Counseling was given focusing on the harmful effects of this addiction especially given the patient's medical condition(s) which will be worsened because of the chemicals in tobacco. - Counseling was given 3-4 minutes. - reinforced recommendation to quit using NRT. Patient still not ready to quit. 3. Screening for lipid disorders - ICD9: V77.91, ICD10: Z13.220 - LIPID PANEL BASIC 4. Encounter for screening mammogram for malignant neoplasm of breast - ICD9: V76.12, ICD10: Z12.31 - Completed breast exam - Encouraged monthly BSE - Follow up for annual exam in one year. - TERESA SCREENING W LOLI Yepez DO January 16, 2023 8:09 AM Follow up in 1 year for annual physical documented in this encounter [facility] 01-11-2023 Note HNO ID: [id number] Author: Vonda Mijares APRN.FACE MAN Service: Anesthesiology Author Type: Nurse Finisher Denture Type: Anesthesia Procedure Notes Filed: 01/11/2023 10:33 AM Note Text: ANESTHESIOLOGY PROCEDURE NOTE Airway General Information Procedure Start Time/Medication Administration: 01/11/2023 10:27 AM Patient location during procedure: OR Consent Obtained: Yes Patient identity confirmed: arm band Staffing Anesthesiologist: Mark Jung MD FACE MAN: Vonda Mijares APRN.FACE MAN Performed by: FACE MAN Indications and Patient Condition Indications for airway management: anesthesia and airway protection Preoxygenated: yes anesthesia circuit Patient position: sniffing Method: asleep Cricoid Pressure: No Manual In-Line Stabilization: No Difficult Mask: No Airway Accessory: LMA Final Airway Details Final airway type: supraglottic airway Number of attempts at approach: 1 Final Supraglottic Airway: i-gel Size 4 Seal Adequate: yes Failed airway: no Unrecognized esophageal intubation: no Airway not difficult SIGNATURE: Vonda Mijares APRN.FACE MAN PATIENT NAME: Rad Eli DATE: January 11, 2023 TIME: 10:32 AM CSN: [id number] [facility] 01-11-2023 Miscellaneous Notes Pt added to schedule. Will call when home from hospital to confirm. Gina RUIZ [facility] or 01/11/23 Fu with me 4 weeks Kub prior ordered documented in this encounter [facility] 01-11-2023 Hospital Discharg e instructions Ellis Zendejas MD - 01/11/2023 10:44 AM EDT Extracorporeal Shock Wave Lithotripsy (ESWL) These are general instructions for you to follow after your surgery. Your doctor or a member of his or her staff will outline any additional or special instructions that pertain to you. What is an ESWL? A ESWL is a procedure that uses sound waves from outside the body to break up stones in the kidney. The patient is placed on a special table and x-ray is used to focus waterborne shock waves through a localized area of the body onto the kidney stones. The stones are broken up into small pieces, which can then pass through urination. Some patient may require a ureteral stent after the procedure. Occasionally, the patient may require a second procedure to remove small stone fragments from the ureter. The success of an ESWL depends on the size and location of the stone, and also the hardness of the stone. The patient s height and weight should also be considered before performing this surgery. How long does surgery take? Surgery will take 1-2 hours to complete. Will I have to stay in the hospital? No. This is an outpatient procedure, so you should be able to go home the same day that the procedure is performed. Home Going Instructions: Activity: You are encouraged to walk every day, increasing the distance each day. You may go up and down steps, but please rest when you are tired. - Do NOT drive for 2-3 weeks after surgery or until you are not taking pain medications. You may ride in a car or plane. Be sure to get up and walk every 1-2 hours when traveling long distances. - Avoid strenuous activity for 2-4 weeks after surgery (running, jumping, lifting more than 10 lbs.) Diet and Fluid Intake: Eating a well balanced diet is important. If you were on a specific diet before your surgery, you should return to that diet. Otherwise, there are no diet restrictions after surgery. Do NOT drink alcoholic beverages while taking pain medications. Drink at least 8 glasses of fluid per day, preferably water. Bowel Management: Constipation sometimes occurs after surgery, especially when taking pain medication. Eating a well-balanced diet and maintaining a good fluid intake are often all that is necessary to return to you pre-surgical bowel regimen. It is important not to strain excessively when having a bowel movement for the first several weeks following your surgery. A stool softener such as Colace may be helpful. You can purchase stool softeners without a prescription at your local drug store. If a stool softener is not enough to relieve your constipation, you may try taking Milk of Magnesia. You may use over the counter medicine, such a Gas-X, if you experience gas pains after surgery. Ureteral Stent: Most people experience some discomfort with a stent in place. Common symptoms include back pain, urinary frequency and urgency. You may see some blood off and on in your urine, especially after you are active. While these symptoms are common with a stent, if you are having a lot of pain, please call our office to discuss your symptoms. Showering: You may shower when you get home from the hospital. Please avoid swimming, hot tubs and baths for 2-3 weeks after your procedure. Pain Medications: Your doctor will prescribe the appropriate pain medication for you. Take these pills only as directed and only if you need them. If you are experiencing mild discomfort, you may take Tylenol or Ibuprofen. NEVER mix alcohol with prescription pain medications. Pain medication may make you drowsy. Do not take pain medication when doing any activity that requires coordination, such as driving. Infection: Report the following warning signs of infection to your doctor immediately: A temperature of 101 degrees or greater Unable to urinate. Sudden onset of increased pain or tenderness Increased amount of blood in the urine, or passing large blood clots Miscellaneous It is normal for you to have minor discomfort after your surgery. However, if there are any significant changes in your condition--such as shortness of breath, difficulty breathing, or pain or uneven swelling in your legs--please go to the Emergency Room. Return to Work: If you work in an office and are not lifting or doing strenuous activity, you may return to work when comfortable. If your work involves strenuous activity, you may need more time before returning to work. If necessary, our office can provide a letter stating the date that you may return to work. documented in this encounter [facility] 01-11-2023 Surgical operatio n note OPERATIVE/PROCEDURE REPORT LOG ID: [id number] SURGERY/PROCEDURE DATE: 01/11/2023 INCISION/PROCEDURE START TIME: 10:34 AM INCISION CLOSE/PROCEDURE END TIME: SURGEON(S)/PROCEDURALIST(S) AND CLASSIFIED COPY CONTROL CLERK(S): Surgeon(s) and Role: * Spenser Pan Jr., MD - Primary * Ellis Zendejas MD - Resident - Assisting No Additional Staff SURGERY/PROCEDURE(S): Right extracorporeal shock wave lithotripsy ANESTHESIA: General SURGERY/PROCEDURE DETAILS: Rad Eli is a 42 year old patient who presents with a right renal calculus. After having a discussion on treatment options, risks and benefits, the patient wishes to proceed forward with surgical intervention. Patient was brought to the operating room and identified using name band/number. A thorough time out was performed and everyone present was in agreement. Patient was placed on OR table. Anesthesia and lines were maintained by the anesthesia team. Patient was placed in the supine position. Using flouroscopic visualization, the calculus was able to be visualized. The focal point of the lithotripter was positioned over the stone in a three dimensional coordinate plane. A total of 2, 500 shocks were delivered with fluoroscopic guidance at a maximum rate of 90 shocks/min and maximum power of 5. There was fragmentation of the stone seen at the termination of the procedure. PRE-OP/PRE-PROCEDURE DIAGNOSIS: Renal calculus, right [N20.0] POST-OP/POST-PROCEDURE DIAGNOSIS: same ESTIMATED BLOOD LOSS: 0 ml SPECIMENS: None IMPLANTABLE DEVICES: NONE DRAINS: None COMPLICATIONS: None PARTICIPATION IN SURGERY/PROCEDURE: Resident performed the procedure, under direct supervision and the remainder of the procedure was performed by the primary surgeon/proceduralist with assistance. SIGNATURE: Polo Zendejas MD PATIENT NAME: Rad Eli DATE: January 11, 2023 TIME: 11:34 AM PAGER/CONTACT #: [phone] Associated attestation - Spenser Pan Jr., MD - 01/11/2023 12:06 PM EDT I was present for the entire procedure and directly participated in the critical and garcia portions of the surgery. I was immediately available to provide assistance throughout the entire case. Spenser Pan Jr, MD documented in this encounter [facility] 01-11-2023 History and physical note Urology H&P 01/11/2023 HISTORY OF PRESENT ILLNESS: The patient is a 42 year old female with a 10mm right renal calculus. She presents today for scheduled right ESWL. PAST MEDICAL HISTORY: PAST MEDICAL HISTORY Diagnosis Date Adenomyosis 10/20/2021 JOSEPH (acute kidney injury) (HCC) 03/08/2022 Anemia 03/08/2022 COVID 08/13/2021 COVID-19 03/08/2022 Hypertension, essential 07/18/2022 Pancreatitis 03/08/2022 Pelvic mass 03/08/2022 Uterine leiomyoma 07/18/2022 PAST SURGICAL HISTORY: PAST SURGICAL HISTORY Procedure Laterality Date BREAST LUMPECTOMY HX Left 2000 benign L'SCOPE DX W/WO BRUSHINGS/WASHINGS 10/19/2021 Diagnostic laparascopy - canceled TL[facility] due to endoemtriosis, frozen posterior cul de sac LAP HYSTERECTOMY FOR UTERUS 250G OR LESS 03/09/2022 TONSILLECTOMY & ADENOIDECTOMY <AGE 12 WOUND CLOSURE 1998 right posterior arm plastic closure ALLERGIES: ALLERGIES Allergen Reactions Biaxin [Clarithromy* Anaphylaxis Ceclor [Cefaclor] Hives Sulfamethoxazole-Tr* Hives Trimethoprim Unknown HOME MEDICATIONS: norethindrone (AYGESTIN) 5 mg tablet, Take 1 tablet by mouth once daily., Disp: 90 tablet, Rfl: 1 hakgmb-mecwojan-xbptrop (ZENPEP) 10,000-32,000 -42,000 unit delayed release capsule, Take by mouth three times daily with meals., Disp: , Rfl: metoprolol succinate ER (TOPROL XL) 50 mg 24 hr tablet, Take 1 tablet by mouth once daily., Disp: 90 tablet, Rfl: 3 nicotine (NICODERM CQ) 21 mg/24 hr, Apply 1 Patch as directed every 24 hours for 14 days., Disp: 14 Patch, Rfl: 0 nicotine (NICODERM) 14 mg/24 hr, Apply 1 Patch as directed every 24 hours for 14 days., Disp: 14 Patch, Rfl: 0 nicotine (NICODERM) 7 mg/24 hr, Apply 1 Patch as directed every 24 hours., Disp: 42 Patch, Rfl: 0 Multivitamin capsule, Take 1 capsule by mouth once daily., Disp: , Rfl: FAMILY HISTORY: Family History Problem Relation Age of Onset Hypertension Father Heart disease Father Diabetes Father Obstructive Sleep Apnea Father other (atrial fib) Father Diabetes Paternal Grandfather Heart disease Paternal Grandfather Social History: Tobacco Use: 1 packs/day, for 25 years. Types: Cigarettes Alcohol Use: Yes (0-1 monthly) ROS: Constitutional: negative for chills and fevers HEENT: no blurry vision or eye redness Respiratory: negative for hemoptysis and shortness of breath Cardiovascular: negative for dyspnea and syncope Gastrointestinal: negative for jaundice, nausea and vomiting Genitourinary:negative for dysuria and hematuria Hematologic/lymphatic: negative for bleeding Integumentary: no new bruises or lesions Musculoskeletal:negative for muscle weakness Neurological: negative for coordination problems and seizures All other systems negative PHYSICAL EXAM: VITALS: There were no vitals filed for this visit. General: Alert, in no acute distress Head: Normocephalic, atraumatic Neck: supple, trachea is midline, no obvious masses Respiratory: normal effort, no audible wheezes Cardiovascular: regular pulse and no cyanosis Musculoskeletal: moving all extremities, normal tone Skin: warm and dry Psych: normal mood and affect, oriented Abdomen: soft, non distended, non tender, no organomegaly, no hernias : +R flank pain and TTP DATA: LABS: BMP: . Glucose (mg/dL) Date Value 01/08/2023 108 09/11/2019 102 Potassium (mmol/L) Date Value 01/08/2023 4.3 09/11/2019 3.3 Sodium (mmol/L) Date Value 01/08/2023 136 09/11/2019 136 Chloride (mmol/L) Date Value 01/08/2023 101 09/11/2019 98 CO2 (mmol/L) Date Value 01/08/2023 25 09/11/2019 23 Creatinine (mg/dL) Date Value 01/08/2023 0.77 09/11/2019 0.65 BUN (mg/dL) Date Value 01/08/2023 12 09/11/2019 10 Anion Gap (mmol/L) Date Value 01/08/2023 10 09/11/2019 15 Calcium (mg/dL) Date Value 09/11/2019 9.1 Calcium, Total (mg/dL) Date Value 01/08/2023 9.3 CBC: Hemoglobin (g/dL) Date Value 02/21/2022 14.0 09/11/2019 10.9 Hematocrit (%) Date Value 02/21/2022 42.0 09/11/2019 35.6 WBC (k/uL) Date Value 02/21/2022 5.58 09/11/2019 8.94 Platelet Count (k/uL) Date Value 02/21/2022 329 09/11/2019 460 Urinalysis: Specific [place], Ur Date Value Ref Range Status 08/13/2021 1.015 1.005 - 1.030 Final Glucose, Urine Date Value Ref Range Status 08/13/2021 Negative Negative Final Bilirubin, Urine Date Value Ref Range Status 08/13/2021 Negative Negative Final Ketones, Urine Date Value Ref Range Status 08/13/2021 Negative Negative Final Hemoglobin/Blood,Ur Date Value Ref Range Status 08/13/2021 2+ (A) Negative Final Nitrites Date Value Ref Range Status 08/13/2021 Negative Negative Final WBC, Urine Date Value Ref Range Status 08/13/2021 11-25 /HPF (A) 0-5 /HPF Final IMPRESSION: 42 year old female with 10mm right renal calculus. PLAN: - Plan to proceed to the OR today for right extracorporeal shock wave lithotripsy Thank you for allowing me to participate in the care of your patient Glenna Fernandez MD Urology 01/11/2023 9:29 AM Associated attestation - Spenser Pan Jr., MD - 01/11/2023 10:00 AM EDT I saw and evaluated the patient. Discussed with the resident and agree with resident's findings and plan as documented in the resident's note. Spenser Pan Jr, MD HISTORY AND PHYSICAL EXAMINATION Rad Eli 1980 SERVICE DATE: 01/11/2023 SERVICE TIME: 8:38 AM PRIMARY CARE PHYSICIAN: Fernando Yepez DO SURGEON: Surgeon(s) and Role: * Spenser Pan Jr., MD - Primary * Ellis Zendejas MD - Resident - Assisting ANESTHESIA: General DIAGNOSIS: Renal calculus, right [N20.0] PROCEDURE: Procedure(s): EXTRACORPOREAL SHOCKWAVE LITHOTRIPSY UNILATERAL (Right) Subjective CHIEF COMPLAINT: renal calculus right The reason for this visit is to perform a comprehensive review of the patient's past medical history, assess their current health status and obtain any additional testing required based on anesthesia guidelines. We will also identify any potential anesthesia problems or contraindications to the planned procedure. HPI: This is a 42 year old female who presents with renal calculus on right, states intermittent flank pain, no F/C, no LUTs, no hematuria. Hx ultrasound Fall 2021 for pancreatitis states stone detected. Pt presents for surgical intervention with Dr Pan. METS: Climb a flight of stairs or walk up a hill (5.50 METs) FUNCTIONAL STATUS: Independent PAST MEDICAL HISTORY Diagnosis Date Adenomyosis 10/20/2021 JOSEPH (acute kidney injury) (HCC) 03/08/2022 Anemia 03/08/2022 COVID 08/13/2021 COVID-19 03/08/2022 Hypertension, essential 07/18/2022 Pancreatitis 03/08/2022 Pelvic mass 03/08/2022 Uterine leiomyoma 07/18/2022 PAST SURGICAL HISTORY Procedure Laterality Date BREAST LUMPECTOMY HX Left 2000 benign L'SCOPE DX W/WO BRUSHINGS/WASHINGS 10/19/2021 Diagnostic laparascopy - canceled [facility] due to endoemtriosis, frozen posterior cul de sac LAP HYSTERECTOMY FOR UTERUS 250G OR LESS 03/09/2022 TONSILLECTOMY & ADENOIDECTOMY <AGE 12 WOUND CLOSURE 1997 right posterior arm plastic closure FAMILY HISTORY Problem Relation Age of Onset Hypertension Father Heart disease Father Diabetes Father Obstructive Sleep Apnea Father other (atrial fib) Father Diabetes Paternal Grandfather Heart disease Paternal Grandfather Social History Tobacco Use Smoking status: Every Day Packs/day: 1.00 Years: 25.00 Pack years: 25.00 Types: Cigarettes Smokeless tobacco: Never Vaping Use Vaping Use: Never used Substance Use Topics Alcohol use: Yes Comment: 0-1 monthly Drug use: Never Prior to Admission medications as of 01/11/23 1004 Medication Sig Last Dose Taking norethindrone (AYGESTIN) 5 mg tablet Take 1 tablet by mouth once daily. 01/11/2023 at 0700 Yes iovdve-xzrqtmwo-sjtpske (ZENPEP) 10,000-32,000 -42,000 unit delayed release capsule Take by mouth three times daily with meals. 01/10/2023 Yes metoprolol succinate ER (TOPROL XL) 50 mg 24 hr tablet Take 1 tablet by mouth once daily. 01/11/2023 at 0700 Yes Multivitamin capsule Take 1 capsule by mouth once daily. 01/10/2023 Yes nicotine (NICODERM CQ) 21 mg/24 hr Apply 1 Patch as directed every 24 hours for 14 days. nicotine (NICODERM) 14 mg/24 hr Apply 1 Patch as directed every 24 hours for 14 days. nicotine (NICODERM) 7 mg/24 hr Apply 1 Patch as directed every 24 hours. ALLERGIES Allergen Reactions Biaxin [Clarithromy* Anaphylaxis Ceclor [Cefaclor] Hives Sulfamethoxazole-Tr* Hives Trimethoprim Unknown COMPLETE REVIEW OF SYSTEMS: GENERAL: No weight loss, malaise or fevers RESPIRATORY: Negative for cough, hemoptysis, wheezing, COPD, dyspnea or shortness of breath, current smoker, no ARINA Cardiac: Negative for chest pain, leg swelling, CHF or palpitations, +HTN GI: No nausea, vomiting, or diarrhea and hx pancreatitis : See HPI MUSCULOSKELETAL: Negative for joint pain or swelling, back pain or muscle pain PSYCH: Negative for sleep disturbance, mood disorder and recent psychosocial stressors ENDOCRINE:Denies diabetes and thyroid problems NEURO: No Hx seizures, tremors or CVA Heme/Onc: No hx blood clots, clotting disorders, or cancer Objective PHYSICAL EXAM: 01/11/23 0950 BP: 132/82 Pulse: 69 Resp: 16 Temp: 36.5 C (97.7 F) TempSrc: Temporal SpO2: 96% There is no height or weight on file to calculate BMI. MENTAL STATUS: alert, oriented to person, place and time HEENT: Normocephalic/atraumatic, pharynx clear LUNGS: Lungs clear to auscultation, Good diaphragmatic excursion CARDIAC: Normal S1 and S2; no rubs, murmurs, or gallops ABDOMEN: Soft, nontender EXTREMITIES: Extremities normal, no deformities, edema, clubbing or skin discoloration. Good capillary refill. Diagnostic tests reviewed for today's visit: Lab Value Units Date High Low HB No results within date range. HCT No results within date range. WBC No results within date range. PLT No results within date range. NA 136 mmol/L 01/08/2023 144 136 K 4.3 mmol/L 01/08/2023 5.1 3.7 GLUC 108 mg/dL 01/08/2023 99 74 BUN 12 mg/dL 01/08/2023 21 7 CREAT 0.77 mg/dL 01/08/2023 0.96 0.58 PTSEC No results within date range. INR No results within date range. APTT No results within date range. ALT No results within date range. AST No results within date range. TBILI No results within date range. TSH No results within date range. Lab Value Units Date High Low HCGQT No results within date range. UHCG No results within date range. HCG, BODY* No results within date range. Lab Value Units Date High Low ABORHD No results within date range. ABSCREEN No results within date range. Hemoglobin A1C (%) Date Value 02/22/2022 5.1 Assessment/Plan ANESTHESIA FINDINGS: Intubation History: No history of difficult intubation Significant Anesthesia Considerations: None FAMILY PROBLEMS WITH ANESTHESIA: no history of adverse anesthetic event Patient has the following medical conditions HTN - Well controlled on medication Pancreatitis f/u with GI Pre-op testing: Medical conditions which may affect the conrad-operative course were addressed in the visit today. PLAN Procedure Diagnosis: Renal calculus, right [N20.0] Planned Procedure: Procedure(s): EXTRACORPOREAL SHOCKWAVE LITHOTRIPSY UNILATERAL (Right) Planned Anesthetic: General I spent a total of 20 minutes on the date of the service which included preparing to see the patient, sotw-wv-laor patient care, completing clinical documentation, obtaining and/or reviewing separately obtained history, and performing a medically appropriate examination. SIGNATURE: Mariya Morgan APRN.CNP PATIENT NAME: Rad Eli DATE: January 11, 2023 TIME: 8:38 AM PAGER/CONTACT #: documented in this encounter [facility] 01-11-2023 Miscellaneous Notes Radiology Service Progress Note PATIENT NAME: Rad Eli DATE OF SERVICE: January 11, 2023 TIME: 8:47 AM PATIENT IDENTITY VERIFICATION COMPLETED USING TWO (2) IDENTIFIERS: Name and Date of confirmed by patient verbally and Name and Date of confirmed by identification band. FALL SCREENING: Has the patient had 2 falls in the last year or 1 fall with injury or currently using an Ambulatory Assistive Device (Walker, Cane, Wheelchair, Crutches, etc.)? Inpatient: Screened on floor PATIENT GENDER DATA: Female. status: : No status: NO. PATIENT RELEVANT IMPLANT DATA REVIEWED: Not Applicable RADIOLOGY DEPARTMENT: General X-ray: Exam(s) Completed: Abdomen X-Ray: Abdomen PERIPHERAL IV DATA: Not applicable SIGNED BY: RT Toño(R) January 11, 2023 8:47 AM documented in this encounter [facility] 01-01-2023 Note Patient Outreach (IN [facility]) RAD ELI ([id number]) 1980 F Date Time Provider Department 01/01/23 FERNANDO YEPEZ During your visit today, we recorded the following information about you: Allergies As of Date: 01/01/2023 Noted Allergy Reaction BIAXIN (CLARITHROMYCIN) 08/24/2021 10 - Anaphylaxis CECLOR (CEFACLOR) 09/11/2019 4 - Hives SULFAMETHOXAZOLE-TRIMETHOPRIM 09/11/2019 4 - Hives TRIMETHOPRIM 05/01/2022 16 - Unknown Date Reviewed: 11/29/2022 Reviewed by: Spenser Pan Jr., MD - Fully Assessed Visit Diagnosis:Hypertension, essential [I10] Order(s):BASIC METABOLIC PNL [SQBMP] Order #: [id number] FUTURE SCHEDULE LAB TESTING [[id number]] Order #: [id number] FUTURE Prescriptions as of 01/04/2023 - norethindrone (AYGESTIN) 5 mg tablet Take 1 tablet by mouth once daily. - sbclgf-qwvvhjpu-zvrlgtz (ZENPEP) 10,000-32,000 -42,000 unit delayed release capsule Take by mouth three times daily with meals. - metoprolol succinate ER (TOPROL XL) 50 mg 24 hr tablet Take 1 tablet by mouth once daily. - nicotine (NICODERM CQ) 21 mg/24 hr Apply 1 Patch as directed every 24 hours for 14 days. - nicotine (NICODERM) 14 mg/24 hr Apply 1 Patch as directed every 24 hours for 14 days. - nicotine (NICODERM) 7 mg/24 hr Apply 1 Patch as directed every 24 hours. - Multivitamin capsule Take 1 capsule by mouth once daily. Problem List As Of Date 01/01/2023 Noted Resolved NEGATIVE MEDICAL HISTORY 08/24/2021 03/08/2022 Endometriosis of peritoneum [N80.30] 10/20/2021 Endometriosis of right ovary [N80.101] 10/20/2021 Adenomyosis [N80.03] 10/20/2021 07/18/2022 Blood pressure elevated without history of HTN *02/21/2022 03/08/2022 COVID-19 [U07.1] 03/08/2022 07/18/2022 Anemia [D64.9] 03/08/2022 07/18/2022 JOSEPH (acute kidney injury) (HCC) [N17.9] 03/08/2022 07/18/2022 Pancreatitis [K85.90] 03/08/2022 07/18/2022 Pelvic mass [R19.00] 03/08/2022 07/18/2022 Hypertension, essential [I10] 07/18/2022 History of pancreatitis [Z87.19] 07/18/2022 Uterine leiomyoma [D25.9] 07/18/2022 07/18/2022 Tobacco use disorder [F17.200] 07/18/2022 Dyshidrotic eczema [L30.1] 07/18/2022 Encounter Status:Closed by [employer], PRODUSER on 01/04/23 [facility] 11-29-2022 History of Presen t illness Narrative ESTABLISHED PATIENT OFFICE VISIT HPI Rad Eli is a 42 year old female who presents ho kidney stones. No recent imaging. Has had some flank pain on and off. No fever. No uti. No luts. 11/29/22 - having some R flank pain when lies down. Ct reviewed. 10 mm R renal calc. 1200HU's. Kub+. No fever. No uti. Options discussed. LAB: Creatinine Date Value Ref Range Status 02/21/2022 0.68 0.58 - 0.96 mg/dL Final No results found for: PSA Glucose, Urine (no units) Date Value 08/13/2021 Negative Bilirubin, Urine (no units) Date Value 08/13/2021 Negative Ketones, Urine (no units) Date Value 08/13/2021 Negative Specific [place], Ur (no units) Date Value 08/13/2021 1.015 Hemoglobin/Blood,Ur (no units) Date Value 08/13/2021 2+ pH, Urine (no units) Date Value 08/13/2021 6.0 Protein, Urine (no units) Date Value 08/13/2021 Comment: Visible blood causes falsely elevated results for analyte Protein. Due to this limitation, Protein will not be reported for patients whose urine contains visible blood. Nitrites (no units) Date Value 08/13/2021 Negative WBC, Urine (no units) Date Value 08/13/2021 11-25 /HPF MEDICATIONS: norethindrone (AYGESTIN) 5 mg tablet Take 1 tablet by mouth once daily. ngcnmr-lrwvwohz-ucrysag (ZENPEP) 10,000-32,000 -42,000 unit delayed release capsule Take by mouth three times daily with meals. metoprolol succinate ER (TOPROL XL) 50 mg 24 hr tablet Take 1 tablet by mouth once daily. Multivitamin capsule Take 1 capsule by mouth once daily. nicotine (NICODERM CQ) 21 mg/24 hr Apply 1 Patch as directed every 24 hours for 14 days. nicotine (NICODERM) 14 mg/24 hr Apply 1 Patch as directed every 24 hours for 14 days. nicotine (NICODERM) 7 mg/24 hr Apply 1 Patch as directed every 24 hours. REVIEW OF SYSTEMS Review of Systems Constitutional: Negative. Respiratory: Negative. Cardiovascular: Negative. Gastrointestinal: Negative. Genitourinary: Negative. Skin: Negative. Neurological: Negative. Psychiatric/Behavioral: Negative. HISTORIES PAST MEDICAL HISTORY Diagnosis Date Adenomyosis 10/20/2021 JOSEPH (acute kidney injury) (HCC) 03/08/2022 Anemia 03/08/2022 COVID 08/13/2021 COVID-19 03/08/2022 Hypertension, essential 07/18/2022 NEGATIVE MEDICAL HISTORY Pancreatitis 03/08/2022 Pelvic mass 03/08/2022 Uterine leiomyoma 07/18/2022 FAMILY HISTORY Problem Relation Age of Onset Hypertension Father Heart disease Father Diabetes Father Obstructive Sleep Apnea Father other (atrial fib) Father Diabetes Paternal Grandfather Heart disease Paternal Grandfather SOCIAL HISTORY Social History Tobacco Use Smoking status: Every Day Packs/day: 1.00 Years: 25.00 Pack years: 25.00 Types: Cigarettes Smokeless tobacco: Never Vaping Use Vaping Use: Never used Substance Use Topics Alcohol use: Yes Comment: 0-1 monthly Drug use: Never PHYSICAL EXAMINATION General appearance: Well appearing, alert, in no acute distress, and well-hydrated, well nourished Skin: Skin color, texture, turgor normal, no suspicious rashes or lesions Respiratory:+ effort Cardiovascular: Not examined GI: Normal abdominal exam, Abdomen soft, non-tender. No masses, organomegaly Musculoskeletal: Negative Neuro: Negative Genitourinary: not examined Impression: (N20.0) Kidney stone (primary encounter diagnosis) Plan: right ESWL All r/b/a of surgery discussed, infection, bleeding, damage to nearby structures, repeat surgery, stent placement, steinstrasse, kidney damage, surgery failure, , heart attack, stroke, deep vein thrombosis, pulmonary embolus. Patient verbalized understanding and agrees to proceed. Spenser Pan Jr, MD 11/29/2022 documented in this encounter [facility] 11-13-2022 Instructions Elidia Parra - 11/13/2022 2:30 PM EST [employer] [phone] OFFICE [phone] [id number] [employer] [facility] SURGICAL SCHEDULERS documented in this encounter [facility] 11-13-2022 History of Presen t illness Narrative Images from the original note were not included. [facility] [place] SECTION FOR MINIMALLY INVASIVE GYNECOLOGIC SURGERY OUTPATIENT VISIT DATE 11/13/2022 OUTPATIENT VISIT TYPE ESTABLISHED PRIMARY CARE PHYSICIAN: Fernando Yepez [address] [place], [place] [address] CHIEF COMPLAINT: Follow Up HISTORY OF PRESENT ILLNESS: Rad Eli is a pleasant 42 year old female who presents for management of endometriosis s/p hysterectomy. She was last seen in clinic on 05/03/2022. At that time, she was recovering well from surgery. The plan at her last visit included: Plan: -May continue to increase physical activity as tolerated -Discussed the role of suppression to decrease chances of recurrence -May resume intercourse -Follow up with general provider for annual care -All questions answered and pt agrees with plan - Follow up in for endometriosis surveillance In clinic today, pt reports doing well. She has discomfort during intercourse during insertion and deep penetration, and is experiencing spotting unrelated to intercourse. From a gynecologic perspective patient denies pain during spotting. IMAGING/LABS: MRI PELVIS 02/12/2022 IMPRESSION: Asymmetric thickening of the posterior uterine wall with imaging features suggestive of adenomyosis over underlying leiomyoma. Extensive posterior and middle compartment infiltrative endometriosis including a small anterior rectosigmoid lesion as detailed in the synoptic report. Bilateral endometriomas as described. Indeterminate findings near the anterior superior bladder wall possibly fibrosis related to prior surgery or small endometriosis deposit. RESULT: Uterus: Size: 8.3 x 6.3 x 7.6cm Orientation: Retroverted Endometrium: Endometrium is displaced to the left. It is predominantly hyperintense on T2-weighted images with somewhat indistinct border between the adjacent junctional zone. Endometrium measures up to 5 mm. Junctional zone: Anteriorly, the junctional zone is well-defined and measures up to 9 mm. Posteriorly, there is indistinct differentiation between the junctional zone in the adjacent myometrium. Several cystic foci are present, compatible with adenomyosis. Cervix: Normal with nabothian cysts. There is asymmetric thickening of the posterior myometrial wall. Area of thickening is prominently hypointense on T2-weighted images with hyperintense foci. Peripherally there are also T1 hyperintense foci. Given the ill-defined nature, the findings are more suggestive of adenomyosis over underlying leiomyoma (for example 3:20). There may be a component of infiltrative endometriosis along the posterior wall of the uterus. Anterior compartment: Perivesicular space/Bladder: Ill-defined focus of spiculated T2 hypointense/fibrotic tissue adjacent to the superior anterior mid bladder. Postcontrast imaging, there is some increased enhancement in this region (3:18 and 19:45). Findings may relate to endometriosis or postoperative fibrosis. Ureters: No hydronephrosis. Vesicovaginal septum: No endometriosis Vesicouterine pouch/: No endometriosis Middle Compartment Disease: Ovaries: - Right ovary: 3.9 x 2.0 x 2.9cm tethered to the posterior lateral wall of the uterus and also to the pelvic sidewall. 2 ovarian endometrioma is present, measuring 2.5 x 1.2 cm and 1.5 x 1.4 cm 19:32). - Left ovary: 3.7 x 2.7 x 2.2 cm Tethered to the left posterior uterine wall. 2.2 x 2.1 cm left ovarian endometrioma. Fallopian tubes: No hydrosalpinx or hepatocellular things. Uterine ligaments: Infiltrative endometriosis is suspected on the left due to irregular fibrotic thickening towards origin (7:13). Vagina: Evaluation somewhat compromised by lack of vaginal contrast. Posterior fornix is involved by the retrocervical/torus lesion described below (3:60). Posterior compartment disease: Torus uterinus and retrocervical Space: along the torus with obliteration of the retrocervical space. Anterior rectal wall: Infiltrative endometriotic lesion present involving the superior rectum at the rectosigmoid junction as below: - Length of lesion: Approximately 1.8 cm (3:13) - Circumferential extent:<25% - Invasion into muscular wall present? Yes - Distance to anal verge: Approximately 10 cm Uterosacral ligament: Involved by at the level of the torus bilaterally. Rectovaginal space / septum: Normal Additional bowel lesions present? (Sigmoid colon/ small bowel): -No additional bowel lesions identified -Appendix is long and passes near the uterine fundus in region of uterine adenomyosis / endometriosis, equivocal for involvement. Additional sites of endometriosis: - No abdominal wall lesions Pelvis free fluid: None Lymph nodes: No lymph nodes enlarged by size criteria. Bones:Normal marrow signal. Past Medical History: PAST MEDICAL HISTORY Diagnosis Date Adenomyosis 10/20/2021 JOSEPH (acute kidney injury) (HCC) 03/08/2022 Anemia 03/08/2022 COVID 08/13/2021 COVID-19 03/08/2022 Hypertension, essential 07/18/2022 NEGATIVE MEDICAL HISTORY Pancreatitis 03/08/2022 Pelvic mass 03/08/2022 Uterine leiomyoma 07/18/2022 Past Surgical History: PAST SURGICAL HISTORY Procedure Laterality Date BREAST LUMPECTOMY HX Left 2000 benign L'SCOPE DX W/WO BRUSHINGS/WASHINGS 10/19/2021 Diagnostic laparascopy - canceled TLH due to endoemtriosis, frozen posterior cul de sac LAP HYSTERECTOMY FOR UTERUS 250G OR LESS 03/09/2022 TONSILLECTOMY & ADENOIDECTOMY <AGE 12 WOUND CLOSURE 1998 right posterior arm plastic closure Family History: FAMILY HISTORY Problem Relation Age of Onset Hypertension Father Heart disease Father Diabetes Father Obstructive Sleep Apnea Father other (atrial fib) Father Diabetes Paternal Grandfather Heart disease Paternal Grandfather Social History: Social History Tobacco Use Smoking status: Every Day Packs/day: 1.00 Years: 25.00 Pack years: 25.00 Types: Cigarettes Smokeless tobacco: Never Vaping Use Vaping Use: Never used Substance Use Topics Alcohol use: Yes Comment: 0-1 monthly Drug use: Never Current Outpatient Medications Medication Sig epdllr-nlrrjmry-ysjsahj (ZENPEP) 10,000-32,000 -42,000 unit delayed release capsule Take by mouth three times daily with meals. metoprolol succinate ER (TOPROL XL) 50 mg 24 hr tablet Take 1 tablet by mouth once daily. Multivitamin capsule Take 1 capsule by mouth once daily. nicotine (NICODERM CQ) 21 mg/24 hr Apply 1 Patch as directed every 24 hours for 14 days. nicotine (NICODERM) 14 mg/24 hr Apply 1 Patch as directed every 24 hours for 14 days. nicotine (NICODERM) 7 mg/24 hr Apply 1 Patch as directed every 24 hours. norethindrone (AYGESTIN) 5 mg tablet Take 1 tablet by mouth once daily. No current facility-administered medications for this visit. Allergies As of Date: 11/13/2022 Allergen Noted Reaction BIAXIN [CLARITHROMYCIN] 08/24/2021 Anaphylaxis CECLOR [CEFACLOR] 09/11/2019 Hives SULFAMETHOXAZOLE-TRIMETHOPRIM 09/11/2019 Hives TRIMETHOPRIM 05/01/2022 Unknown Fully Assessed 11/13/2022 REVIEW OF SYSTEMS: POSITIVES IN BOLD Per HPI PHYSICAL EXAMINATION: Vital Signs: 11/13/22 1407 BP: 153/98 Pulse: 77 Weight: 95.7 kg (211 lb) Height: 168.9 cm (5' 6.5 ) Body mass index is 33.55 kg/m . General appearance: Well appearing, alert, in no acute distress, well-hydrated, well nourished. Skin: Skin color, texture, turgor normal, no suspicious rashes or lesions Abdomen: Normal abdominal exam, Abdomen soft, non-tender. Bowel sounds normal. No masses. PELVIC EXAMINATION: Vulva/Perineum: Normal Urethra: No mass, tenderness or diverticulum Bladder:normal Vagina: cuff well healed and no evidence of endometriosis on examination Cervix: Surgically absent Uterus: Surgically absent Adnexae: Surgically absent Bimanual: Tender pelvic floor. Left side more tender than the right. Rectal: No Mass Muskuloskeletal: no change in pain with straight leg raise, hip flexion, abduction, or adduction against resistance. No change in pain with internal and external hip rotation IMPRESSION: Rad Eli is a 42 year old female who presents with Endometriosis S/p hysterectomy Deep dyspareunia. I advised that she should not be spotting, and should be tracking it to see if it is cyclic in nature. She reports approximately two episodes of spotting this month with no pain noticed, unrelated to the dyspareunia she's experiencing. She has been diagnosed with kidney stones - this could also be the cause. On physical exam, there was noted tension in her pelvic floor, and I recommend PFPT for pelvic floor tension. . I will additionally refill pt's Aygestin. PLAN: - Refill Aygestin Rx. - Order PFPT consult. - Follow up in 6 months. Written and verbal health teaching given to patient, patient verbalizes understanding and agrees with treatment plan. I spent 15 minutes in the visit, with more than 50% of the total [id number] time of the visit in counseling / coordination of care. I personally interviewed, confirmed and edited the above information if obtained by others. Scribe Attestation: By signing my name below, I, Elidia Parra, attest that this documentation has been prepared under the direction and in the presence of Dr. Heron Denson. Electronically Signed:kathleen Berger, November 06, 2022 11:05 AM Heron Chavarria MD documented in this encounter [facility] 11-09-2022 History of Presen t illness Narrative NEW PATIENT HISTORY AND PHYSICAL EXAM PATIENT INFO: Rad Eli 42 year old REFERRING PROVIDER: Data Unavailable PCP: DO PACHECO Colin Rad Eli is a 42 year old female with ho kidney stones. No recent imaging. Has had some flank pain on and off. No fever. No uti. No luts. Review of Systems Constitutional: Negative. Respiratory: Negative. Cardiovascular: Negative. Gastrointestinal: Negative. Genitourinary: Negative. Skin: Negative. Neurological: Negative. Psychiatric/Behavioral: Negative. LAB: Creatinine Date Value Ref Range Status 02/21/2022 0.68 0.58 - 0.96 mg/dL Final No results found for: PSA Glucose, Urine (no units) Date Value 08/13/2021 Negative Bilirubin, Urine (no units) Date Value 08/13/2021 Negative Ketones, Urine (no units) Date Value 08/13/2021 Negative Specific [place], Ur (no units) Date Value 08/13/2021 1.015 Hemoglobin/Blood,Ur (no units) Date Value 08/13/2021 2+ pH, Urine (no units) Date Value 08/13/2021 6.0 Protein, Urine (no units) Date Value 08/13/2021 Comment: Visible blood causes falsely elevated results for analyte Protein. Due to this limitation, Protein will not be reported for patients whose urine contains visible blood. Nitrites (no units) Date Value 08/13/2021 Negative WBC, Urine (no units) Date Value 08/13/2021- MEDICATIONS: qkzaam-tqgnvswn-uackikb (ZENPEP) 10,000-32,000 -42,000 unit delayed release capsule Take by mouth three times daily with meals. metoprolol succinate ER (TOPROL XL) 50 mg 24 hr tablet Take 1 tablet by mouth once daily. norethindrone (AYGESTIN) 5 mg tablet Take 1 tablet by mouth once daily. Multivitamin capsule Take 1 capsule by mouth once daily. nicotine (NICODERM CQ) 21 mg/24 hr Apply 1 Patch as directed every 24 hours for 14 days. nicotine (NICODERM) 14 mg/24 hr Apply 1 Patch as directed every 24 hours for 14 days. nicotine (NICODERM) 7 mg/24 hr Apply 1 Patch as directed every 24 hours. HISTORIES PAST MEDICAL HISTORY Diagnosis Date Adenomyosis 10/20/2021 JOSEPH (acute kidney injury) (HCC) 03/08/2022 Anemia 03/08/2022 COVID 08/13/2021 COVID-19 03/08/2022 Hypertension, essential 07/18/2022 NEGATIVE MEDICAL HISTORY Pancreatitis 03/08/2022 Pelvic mass 03/08/2022 Uterine leiomyoma 07/18/2022 FAMILY HISTORY Problem Relation Age of Onset Hypertension Father Heart disease Father Diabetes Father Obstructive Sleep Apnea Father other (atrial fib) Father Diabetes Paternal Grandfather Heart disease Paternal Grandfather SOCIAL HISTORY Social History Tobacco Use Smoking status: Every Day Packs/day: 1.00 Years: 25.00 Pack years: 25.00 Types: Cigarettes Smokeless tobacco: Never Vaping Use Vaping Use: Never used Substance Use Topics Alcohol use: Yes Comment: 0-1 monthly Drug use: Never PHYSICAL EXAMINATION BP 144/88 Ht 168.9 cm (5' 6.5 ) Wt 88 kg (194 lb) LMP 09/02/2021 (Exact Date) BMI 30.84 kg/m General appearance: Well appearing, alert, in no acute distress, and well-hydrated, well nourished Skin: Skin color, texture, turgor normal, no suspicious rashes or lesions Respiratory:+ effort Cardiovascular: Not examined GI: Normal abdominal exam, Abdomen soft, non-tender. No masses, organomegaly Musculoskeletal: normal ROM Neuro: No gross neurologic defecits Genitourinary: not examined ASSESSMENT: (N20.0) Kidney stone (primary encounter diagnosis) PLAN: Ct flank Kub Fu after Spenser Pan Jr, MD documented in this encounter [facility] 08-23-2022 Nurse Note Images from the original note were not included. Reason for blood pressure check - elevated at [facility] 10/5 Had been off BP med for approx 10days at [facility], did restart and is taking daily At OV last week with GI (sees outside facility) was 147/94 Does not check at home. Expresses concern that readings are not where they should be BP 130/88 Pulse (!) 58 LMP 09/02/2021 (Exact Date) BP w/Orthostatic Vitals Date and Time Orthostatic BP Orthostatic Pulse BP Pulse BP Position BP Site BP Cuff Size 08/23/22 1328 -- -- 130/88 -- -- -- -- 08/23/22 1327 -- -- 125/88 58 -- -- -- 08/23/22 1326 -- -- 128/87 58 -- -- -- 08/23/22 1325 -- -- 129/89 58 -- -- -- 08/23/22 1324 -- -- 137/82 58 -- -- -- 08/23/22 1323 -- -- 162/84 -- -- -- -- SYMPTOMS: Dizziness/Lightheaded - No Chest Pain - No Shortness of Breath - No Swelling No Fatigue No Current Outpatient Medications Medication Sig metoprolol succinate ER (TOPROL XL) 25 mg 24 hr tablet Take 1 tablet by mouth once daily. nicotine (NICODERM CQ) 21 mg/24 hr Apply 1 Patch as directed every 24 hours for 14 days. nicotine (NICODERM) 14 mg/24 hr Apply 1 Patch as directed every 24 hours for 14 days. nicotine (NICODERM) 7 mg/24 hr Apply 1 Patch as directed every 24 hours. triamcinolone acetonide (KENALOG) 0.1 % cream Apply to affected area twice daily. Use for up to two weeks then stop for one week ceramides 1,3,6-II (CERAVE) Apply to affected area once daily. norethindrone (AYGESTIN) 5 mg tablet Take 1 tablet by mouth once daily. Multivitamin capsule Take 1 capsule by mouth once daily. No current facility-administered medications for this visit. Taking medication as prescribed Yes Took medication today Yes Experiencing side effects No Last 4 Encounter BP Readings: Date: BP: 08/23/2022 130/88[Average[ 07/18/2022 162/102 05/03/2022 128/82 03/09/2022 142/75 Follow-up Yes, scheduled with [facility] 4/5 Appointment slot on hold 09/20 for sooner f/u if recommended per PCP Patient verbalizes understanding of instructions Yes documented in this encounter [facility] documented as of this encounter (statuses as of 08/23/2022) [facility] History of Past illness Narrative* Problem Noted Date Resolved Date Uterine leiomyoma 07/18/2022 07/18/2022 COVID-19 03/08/2022 07/18/2022 Anemia 03/08/2022 07/18/2022 JOSEPH (acute kidney injury) 03/08/20222021 Pancreatitis 03/08/2022 07/18/2022 Pelvic mass 03/08/2022 07/18/2022 Blood pressure elevated without history of HTN 0 02/21/2022 03/08/2022 Last Assessment & Plan: Assessment: appt 02/22 [facility] practice for elevated BP. Adenomyosis 10/20/2021 07/18/2022 NEGATIVE MEDICAL HISTORY 08/24/2021 022 documented as of this encounter (statuses as of 09/13/2022) [facility] History of Past illness Narrative* Problem Noted Date Resolved Date Uterine leiomyoma 07/18/2022 07/18/2022 COVID-19 03/08/2022 07/18/2022 Anemia 03/08/2022 07/18/2022 JOSEPH (acute kidney injury) 03/08/20222021 Pancreatitis 03/08/2022 07/18/2022 Pelvic mass 03/08/2022 07/18/2022 Blood pressure elevated without history of HTN 0 02/21/2022 03/08/2022 Last Assessment & Plan: Assessment: appt 02/22 [facility] practice for elevated BP. Adenomyosis 10/20/2021 07/18/2022 NEGATIVE MEDICAL HISTORY 08/24/2021 022 documented as of this encounter (statuses as of 11/09/2022) [facility] History of Past illness Narrative* Problem Noted Date Resolved Date Uterine leiomyoma 07/18/2022 07/18/2022 COVID-19 03/08/2022 07/18/2022 Anemia 03/08/2022 07/18/2022 JOSEPH (acute kidney injury) 03/08/20222021 Pancreatitis 03/08/2022 07/18/2022 Pelvic mass 03/08/2022 07/18/2022 Blood pressure elevated without history of HTN 0 02/21/2022 03/08/2022 Last Assessment & Plan: Assessment: appt 02/22 [facility] practice for elevated BP. Adenomyosis 10/20/2021 07/18/2022 NEGATIVE MEDICAL HISTORY 08/24/2021 022 documented as of this encounter (statuses as of 11/13/2022) [facility] History of Past illness Narrative* Problem Noted Date Resolved Date Uterine leiomyoma 07/18/2022 07/18/2022 COVID-19 03/08/2022 07/18/2022 Anemia 03/08/2022 07/18/2022 JOSEPH (acute kidney injury) 03/08/20222021 Pancreatitis 03/08/2022 07/18/2022 Pelvic mass 03/08/2022 07/18/2022 Blood pressure elevated without history of HTN 0 02/21/2022 03/08/2022 Last Assessment & Plan: Assessment: appt 02/22 [facility] practice for elevated BP. Adenomyosis 10/20/2021 07/18/2022 NEGATIVE MEDICAL HISTORY 08/24/2021 022 documented as of this encounter (statuses as of 11/23/2022) [facility] History of Past illness Narrative* Problem Noted Date Resolved Date Uterine leiomyoma 07/18/2022 07/18/2022 COVID-19 03/08/2022 07/18/2022 Anemia 03/08/2022 07/18/2022 JOSEPH (acute kidney injury) 03/08/20222021 Pancreatitis 03/08/2022 07/18/2022 Pelvic mass 03/08/2022 07/18/2022 Blood pressure elevated without history of HTN 0 02/21/2022 03/08/2022 Last Assessment & Plan: Assessment: appt 02/22 [facility] practice for elevated BP. Adenomyosis 10/20/2021 07/18/2022 NEGATIVE MEDICAL HISTORY 08/24/2021 022 documented as of this encounter (statuses as of 11/29/2022) [facility] History of Past illness Narrative* Problem Noted Date Resolved Date Uterine leiomyoma 07/18/2022 07/18/2022 COVID-19 03/08/2022 07/18/2022 Anemia 03/08/2022 07/18/2022 JOSEPH (acute kidney injury) 03/08/20222021 Pancreatitis 03/08/2022 07/18/2022 Pelvic mass 03/08/2022 07/18/2022 Blood pressure elevated without history of HTN 0 02/21/2022 03/08/2022 Last Assessment & Plan: Assessment: appt 02/22 [facility] practice for elevated BP. Adenomyosis 10/20/2021 07/18/2022 NEGATIVE MEDICAL HISTORY 08/24/2021 022 documented as of this encounter (statuses as of 01/04/2023) [facility] History of Past illness Narrative* Problem Noted Date Resolved Date Uterine leiomyoma 07/18/2022 07/18/2022 COVID-19 03/08/2022 07/18/2022 Anemia 03/08/2022 07/18/2022 JOSEPH (acute kidney injury) 03/08/20222021 Pancreatitis 03/08/2022 07/18/2022 Pelvic mass 03/08/2022 07/18/2022 Blood pressure elevated without history of HTN 0 02/21/2022 03/08/2022 Last Assessment & Plan: Assessment: appt 02/22 [facility] practice for elevated BP. Adenomyosis 10/20/2021 07/18/2022 NEGATIVE MEDICAL HISTORY 08/24/2021 022 documented as of this encounter (statuses as of 01/11/2023) [facility] History of Past illness Narrative* Problem Noted Date Resolved Date Uterine leiomyoma 07/18/2022 07/18/2022 COVID-19 03/08/2022 07/18/2022 Anemia 03/08/2022 07/18/2022 JOSEPH (acute kidney injury) 03/08/20222021 Pancreatitis 03/08/2022 07/18/2022 Pelvic mass 03/08/2022 07/18/2022 Blood pressure elevated without history of HTN 0 02/21/2022 03/08/2022 Last Assessment & Plan: Assessment: appt 02/22 [facility] practice for elevated BP. Adenomyosis 10/20/2021 07/18/2022 NEGATIVE MEDICAL HISTORY 08/24/2021 022 documented as of this encounter (statuses as of 01/12/2023) [facility] History of Past illness Narrative* Problem Noted Date Resolved Date Uterine leiomyoma 07/18/2022 07/18/2022 COVID-19 03/08/2022 07/18/2022 Anemia 03/08/2022 07/18/2022 JOSEPH (acute kidney injury) 03/08/20222021 Pancreatitis 03/08/2022 07/18/2022 Pelvic mass 03/08/2022 07/18/2022 Blood pressure elevated without history of HTN 0 02/21/2022 03/08/2022 Last Assessment & Plan: Assessment: appt 02/22 [facility] practice for elevated BP. Adenomyosis 10/20/2021 07/18/2022 NEGATIVE MEDICAL HISTORY 08/24/2021 022 documented as of this encounter (statuses as of 01/16/2023) [facility] History of Past illness Narrative* Problem Noted Date Resolved Date Uterine leiomyoma 07/18/2022 07/18/2022 COVID-19 03/08/2022 07/18/2022 Anemia 03/08/2022 07/18/2022 JOSEPH (acute kidney injury) 03/08/20222021 Pancreatitis 03/08/2022 07/18/2022 Pelvic mass 03/08/2022 07/18/2022 Blood pressure elevated without history of HTN 0 02/21/2022 03/08/2022 Last Assessment & Plan: Assessment: appt 02/22 [facility] practice for elevated BP. Adenomyosis 10/20/2021 07/18/2022 NEGATIVE MEDICAL HISTORY 08/24/2021 022 documented as of this encounter (statuses as of 02/07/2023) [facility] History of Past illness Narrative* Problem Noted Date Diagnosed Date Resolved Date Uterine leiomyoma 07/18/2022 07/18/2022 COVID-19 03/08/2022 07/18/2022 Anemia 03/08/2022 07/18/2022 JOSEPH (acute kidney injury) 03/08/2022 Pancreatitis 03/08/2022 07/18/2022 Pelvic mass 03/08/2022 07/18/2022 Blood pressure elevated with out history of HTN 02/21/2022 03/08/2022 Last Assessment & Plan: Assessment: appt 02/22 [facility] practice for elevated BP. Adenomyosis 10/20/2021 07/18/2022 NEGATIVE MEDICAL HISTORY 08/24/2021 documented as of this encounter (statuses as of 04/23/2023) [facility] of Past illness Narrative* Problem Noted Date Diagnosed Date Resolved Date Uterine leiomyoma 07/18/2022 07/18/2022 COVID-19 03/08/2022 07/18/2022 Anemia 03/08/2022 07/18/2022 JOSEPH (acute kidney injury) 03/08/2022 Pancreatitis 03/08/2022 07/18/2022 Pelvic mass 03/08/2022 07/18/2022 Blood pressure elevated with out history of HTN 02/21/2022 03/08/2022 Last Assessment & Plan: Assessment: appt 02/22 [facility] practice for elevated BP. Adenomyosis 10/20/2021 07/18/2022 NEGATIVE MEDICAL HISTORY 08/24/2021 documented as of this encounter (statuses as of 05/13/2023) [facility] History of Past illness Narrative* Problem Noted Date Diagnosed Date Resolved Date Uterine leiomyoma 07/18/2022 07/18/2022 COVID-19 03/08/2022 07/18/2022 Anemia 03/08/2022 07/18/2022 JOSEPH (acute kidney injury) 03/08/2022 Pancreatitis 03/08/2022 07/18/2022 Pelvic mass 03/08/2022 07/18/2022 Blood pressure elevated with out history of HTN 02/21/2022 03/08/2022 Last Assessment & Plan: Assessment: appt 02/22 [facility] practice for elevated BP. Adenomyosis 10/20/2021 07/18/2022 NEGATIVE MEDICAL HISTORY 08/24/2021 documented as of this encounter (statuses as of 12/06/2023) [facility] History of Past illness Narrative* Problem Noted Date Diagnosed Date Resolved Date Uterine leiomyoma 07/18/2022 07/18/2022 COVID-19 03/08/2022 07/18/2022 Anemia 03/08/2022 07/18/2022 JOSEPH (acute kidney injury) 03/08/2022 Pancreatitis 03/08/2022 07/18/2022 Pelvic mass 03/08/2022 07/18/2022 Blood pressure elevated with out history of HTN 02/21/2022 03/08/2022 Last Assessment & Plan: Assessment: appt 02/22 [facility] practice for elevated BP. Adenomyosis 10/20/2021 07/18/2022 NEGATIVE MEDICAL HISTORY 08/24/2021 documented as of this encounter (statuses as of 12/20/2023) [facility] Instructions* Patient Instructions* Fernando Yepez DO - 07/18/2022 8:42 AM EDT SMOKING CESSATION Stopping smoking is the most important thing you can do to protect your current and future health, as well as that of your family. It is the most potent risk factor for the future development of coronary artery disease and heart attacks. Smoking is both an addiction and a learned behavior. The nicotine withdrawal takes anywhere from 2-4 weeks and results in symptoms such as irritability, fatigue, insomnia, coughing, dizziness, poor concentration, hunger and cigarette cravings. After the nicotine withdrawal period, the learned linkage between certain acts or situations and cigarette use remain. Strategies to deal with these must be developed along with new behaviors to ensure successful smoking cessation. STRATEGIES TOWARD SMOKING CESSATION - Make a list of the reasons why you want to quit, plus the benefits to be gained, and compare themto the reasons why you should continue to smoke. - Pick a specific quit date. - If you are interested in using nicotine patches or gum to assist with the nicotine withdrawal, let the staff know. - Inform friends, family, and co-workers that you are quitting and when your quit date is. Ask for their understanding and support. - Prepare your environment by removing all cigarettes prior to your quit date. - Prior to your quit date, avoid smoking in places where you spend a lot of time (such as the house, work, car). - From previous quit attempts, identify what helped you to stop smoking. - From previous quit attempts, identify what triggered relapse. How can you avoid that again? - What things (situations, emotions) do you anticipate will be most challenging, especially in the first few weeks, to your quitting effort? - What can you do to address these challenges? - Avoid (or limit) alcohol consumption during the quitting process. - If your spouse or close coworker currently smoke, consider quitting together or at the very least, develop specific plans to maintain your cigarette abstinence while in the home or at work. - Take each day, each hour, each craving, one at a time. Every step or action you take toward smoking cessation is a success. The only failure is the failure to try. - The health of you and your family, is worth the effort. STOP SMOKING CHECK LIST Preparing to Quit: ___ Make a personal pact with yourself to quit. ___ Pick a date for quitting completely. (My date to quit is ____.) ___ Write down on a card the three most important reasons for quitting. Carry the card with you from now on. Look at it several times a day. ___ Prior to quitting, eliminate smoking completely in 2 or 3 of your high risk situations. ___ Reduce consumption to one pack per day or less. ___ Change to a less desirable brand of cigarettes. ___ Discard your sample processor. Use matches. Carry your cigarettes in a different place. ___ Spend a little time each day picturing in your mind stressful events occurring in the future and you not smoking. Actual Quitting: The First Two Weeks ___ Get rid of all cigarettes. Put away all smoking related objects such as ashtrays. Ask the people you live with not to smoke in your presence for the first two weeks. ___ Spend as much time as possible with non-smoking people. ___ Keep busy, especially on evenings and weekends. ___ Avoid high risk situations (large parties, bars, etc.). ___ Spend lots of time in places that prohibit or discourage smoking (e.g., theaters, libraries.) ___ Drink plenty of fluids. ___ Don't substitute food or sugar based products for cigarettes. Use approved substitutions. (... ice water, high bulk/low calorie foods, sugarless gum, mouthwash, brushing teeth.) ___ Begin or increase regular exercise program. ___ When experiencing withdrawal effects: 1. Remind yourself why you are quitting (from your card). 2. Remind yourself that whatever discomfort you are experiencing is only a tiny fraction of the probable discomfort associated with continued smoking. 3. Practice deep breathing or other relaxation techniques - tapes. ___ Remind yourself that you can free yourself from this unhealthy, expensive, messy habit and become a non-smoker. Maintenance of Quitting: After two weeks ___ Remind yourself that the desire to smoke is linked to a great many situations, people and emotional stress. ___ When you do have a desire to smoke, remember that it only lasts a few seconds: distract yourself and leave the situation if necessary. ___ After each desire to smoke has passed, pat yourself on the back, you have just made progress inbreaking the habit forever. ___ Save the money on wasted on cigarettes in a special fund and buy yourself something nice. Maintenance of Quitting: After Two Months ___ Be particularly vigilant when unusual life events occur. (.. weddings, holidays, vacations.) ___ Be particularly vigilant when stressful life events occur (e.g., relationship problems, financial or work problems.) ___ Remind yourself regularly that not smoking is completely within your personal control. ___ Never lull yourself into thinking you are out of danger and you can safely have a cigarette or two. -- you cannot!!!!! ___ If, by chance, you do slip and have one or more cigarettes, do not conclude that all is lost .Return to complete abstinence immediately and learn from your experience. ___ If you have gained significant weight since quitting, now is the time to do something about it. ___ Each time you see a cigarettes advertisement, remind yourself of why you quit. Also remember that a [employer] spends billions of dollars each year trying to get people like yourself re-hooked . [facility] of Present illness Narrative* Fernando Yepez DO - 07/18/2022 8:29 AM EDT CC: est care S: 41 year old female with history below presents for est care. Was on metoprolol but ran out 10 days ago. BPs were normal range on it. 120s systolic on a regular basis. Last 3 Encounter BP Readings: Date: BP: 07/18/2022 162/102 05/03/2022 128/82 03/09/2022 142/75 The 10-year ASCVD risk score (Shaggy OLSON, et al., 2019) is: 7.3% Values used to calculate the score: Age: 41 years Sex: Female Is Non- : No Diabetic: No Tobacco smoker: Yes Systolic Blood Pressure: 162 mmHg Is BP treated: Yes HDL Cholesterol: 44 mg/dL Total Cholesterol: 192 mg/dL Smokes 1 PPD - smoking for 25 years Is ready to quit smoking- NRT in the hospital worked during that week Interested in restarted NRT Dryness/cracked skin of the hands b/l Started after hospitalizations for pancreatitis/kidney stone in August 2021 Gets dryness between the fingers however it spread around the hand and has caused itching/discomfort since spreading. Had covid19 1 month ago however is interested in obtaining the vaccines for covid19. Component Latest Ref Rng & Units 02/21/2022 02/22/2022 03/09/2022 WBC 3.70 - 11.00 k/uL 5.58 RBC 3.90 - 5.20 m/uL 4.50 Hemoglobin 11.5 - 15.5 g/dL 14.0 Hematocrit 36.0 - 46.0 % 42.0 MCV 80.0 - 100.0 fL 93.3 MCH 26.0 - 34.0 pg 31.1 MCHC 30.5 - 36.0 g/dL 33.3 RDW-CV 11.5 - 15.0 % 12.1 Platelet Count 150 - 400 k/uL 329 MPV 9.0 - 12.7 fL 8.2 (L) Neut% % 60.1 Abs Neut (ANC) 1.45 - 7.50 k/uL 3.36 Lymph% % 27.8 Abs Lymph 1.00 - 4.00 k/uL 1.55 [place]gan% % 7.9 Abs [place] <0.87 k/uL 0.44 Eosin% % 2.9 Abs Eosin <0.46 k/uL 0.16 Baso% % 0.9 Abs Baso <0.11 k/uL 0.05 Immature Gran % % 0.4 IMMATURE GRANS (ABS) <0.10 k/uL <0.03 NRBC /100 WBC 0.0 Absolute nRBC <0.01 k/uL <0.01 DTYPE Auto Protein, Total 6.3 - 8.0 g/dL 7.6 Albumin 3.9 - 4.9 g/dL 4.9 Calcium 8.5 - 10.2 mg/dL 9.9 Bilirubin, Total 0.2 - 1.3 mg/dL 0.5 Alkaline Phosphatase 34 - 123 U/L 78 AST 13 - 35 U/L 29 ALT 7 - 38 U/L 23 Glucose 74 - 99 mg/dL 89 BUN 7 - 21 mg/dL 14 Creatinine 0.58 - 0.96 mg/dL 0.68 Sodium 136 - 144 mmol/L 139 Potassium 3.7 - 5.1 mmol/L 4.7 Chloride 97 - 105 mmol/L 102 CO2 22 - 30 mmol/L 25 Anion Gap 9 - 18 mmol/L 12 eGFR >=60 mL/min/1.73m 112 Total Cholesterol, Nonfasting <200 mg/dL 192 Triglycerides, Nonfasting <150 mg/dL 156 (H) HDL Cholesterol, Nonfasting >39 mg/dL 44 LDL Cholesterol, Nonfasting <100 mg/dL 117 (H) Non HDL Cholesterol, Nonfasting <130 mg/dL 148 (H) VLDL Cholesterol, Nonfasting <30 mg/dL 31 (H) Total Chol/HDL Ratio, Nonfasting <5.10 mg/dL 4.36 LDL/HDL Ratio, Nonfasting <2.54 mg/dL 2.66 (H) ABO O O Rh(D) Negative Negative Antibody Screen Negative Historical Ab Scr Status NEGATIVE HIV 12 Combo (Ag/Ab) Nonreactive Nonreactive HIV 1/2 Ab HIV Interpretation Iron 41 - 186 ug/dL 69 TIBC 232 - 386 ug/dL 334 Transferrin Saturation 15 - 57 % 21 Hemoglobin A1C 4.3 - 5.6 % 5.1 Estimated Average Glucose mg/dL 100 Hep C Antibody IA Negative Negative TSH 0.270 - 4.200 mIU/L 1.000 Free T4 0.9 - 1.7 ng/dL 1.2 T3 79 - 165 ng/dL 86 Ferritin 14.7 - 205.1 ng/mL 73.1 Mammo with loli 04/19/2022 IMPRESSION: NEGATIVE There is no mammographic evidence of malignancy. A 1 year screening mammogram is recommended. Surg path [facility] February 2022 PATHOLOGY: FINAL DIAGNOSIS A. Uterus, cervix, and bilateral fallopian tubes, hysterectomy and bilateral salpingectomy: Cervix: Mild chronic cervicitis. Endometrium: Proliferative endometrium. Myometrium: Extensive full-thickness adenomyosis. - Focal complex Non-atypical endometrial hyperplasia. Serosa: Focal serosal endometriosis. Bilateral fallopian tubes: Benign paratubal cyst with calcification. B. Rectal shaving, biopsy: - Endometriosis. C. Retro-cervical lesion, biopsy: - Endometriosis. D. Retro-cervical nodule, biopsy: - Endometriosis. E. Right ovarian cyst, excision: - Endometriosis and endometriotic cyst. F. Left ovarian cyst, excision: - Endometriotic cyst. G. Left ovarian fossa, biopsy: - Endometriosis. PAST MEDICAL HISTORY Diagnosis Date Adenomyosis 10/20/2021 JOSEPH (acute kidney injury) (HCC) 03/08/2022 Anemia 03/08/2022 COVID 08/13/2021 COVID-19 03/08/2022 Hypertension, essential 07/18/2022 NEGATIVE MEDICAL HISTORY Pancreatitis 03/08/2022 Pelvic mass 03/08/2022 Uterine leiomyoma 07/18/2022 PAST SURGICAL HISTORY Procedure Laterality Date BREAST LUMPECTOMY HX Left 2000 benign L'SCOPE DX W/WO BRUSHINGS/WASHINGS 10/19/2021 Diagnostic laparascopy - canceled [facility] due to endoemtriosis, frozen posterior cul de sac LAP HYSTERECTOMY FOR UTERUS 250G OR LESS 03/09/2022 TONSILLECTOMY & ADENOIDECTOMY <AGE 12 WOUND CLOSURE 1997 right posterior arm plastic closure Current Outpatient Medications Medication Sig Dispense Refill metoprolol succinate ER (TOPROL XL) 25 mg 24 hr tablet Take 1 tablet by mouth once daily. 90 tablet3 nicotine (NICODERM CQ) 21 mg/24 hr Apply 1 Patch as directed every 24 hours for 14 days. 14 Patch 0 [START ON 08/02/2022] nicotine (NICODERM) 14 mg/24 hr Apply 1 Patch as directed every 24 hours for 14 days. 14 Patch 0 [START ON 2022] nicotine (NICODERM) 7 mg/24 hr Apply 1 Patch as directed every 24 hours. 42 Patch 0 triamcinolone acetonide (KENALOG) 0.1 % cream Apply to affected area twice daily. Use for up to twoweeks then stop for one week 453.6 g 1 ceramides 1,3,6-II (CERAVE) Apply to affected area once daily. 453 g 1 norethindrone (AYGESTIN) 5 mg tablet Take 1 tablet by mouth once daily. 90 tablet 1 Multivitamin capsule Take 1 capsule by mouth once daily. No current facility-administered medications for this visit. SOCIAL (pertinent): Social History Tobacco Use Smoking status: Every Day Packs/day: 1.00 Years: 25.00 Pack years: 25.00 Types: Cigarettes Smokeless tobacco: Never Vaping Use Vaping Use: Never used Substance Use Topics Alcohol use: Yes Comment: 0-1 monthly Drug use: Never FAMILY (pertinent): FAMILY HISTORY Problem Relation Age of Onset Hypertension Father Heart disease Father Diabetes Father Obstructive Sleep Apnea Father other (atrial fib) Father Diabetes Paternal Grandfather Heart disease Paternal Grandfather ROS: See HPI O: PHYSICAL EXAM: BP 162/102 Pulse 88 Temp 37.3 C (99.1 F) (Tympanic) Ht 168.9 cm (5' 6.5 ) Wt 88 kg (194 lb) LMP 09/02/2021 (Exact Date) SpO2 100% BMI 30.84 kg/m Gen: Patient is pleasant, alert, NAD, well appearing Head: Normocephalic, atraumatic CV: Regular rate and rhythm, normal S1/S2, no murmurs, rubs Pulm: Clear to auscultation bilaterally, no wheezes, crackles, or rhonchi Neuro: EOMI, no involuntary movements. Extrem: No cyanosis, clubbing, or edema. Distal pulses equal and palpable b/l Skin: Warm, dry, b/l hands with xerosis and erythema on the palmar surfaces and intertriginous areas. A/P: I spent 30 minutes in the visit, with more than 50% of the total [id number] time of the visit in counseling / coordination of care. 41 year old female with ASSESSMENT/PLAN: 1. Hypertension, essential - ICD9: 401.9, ICD10: I10 (primary diagnosis) - poor control - factors affecting control of BP include being out of her medication for 10 days, tobacco use. - Recommended regular aerobic exercise. - Recommend home blood pressure monitoring, to bring results in on next visit - restart medication and f/u in 4 weeks for NV BP check. Will adjust if not at goal. - Goal of BP <130/80 - METOPROLOL SUCCINATE ER 25 MG TABLET,EXTENDED RELEASE 24 HR 2. Tobacco use disorder - ICD9: 305.1, ICD10: F17.200 - Cessation encouraged. - Physiologic and physical aspects of tobacco addiction as well as strategies for quitting were discussed. - Counseling was given focusing on the harmful effects of this addiction especially given the patient's medical condition(s) which will be worsened because of the chemicals in tobacco. - Counseling was given 3-4 minutes. - ready to quit smoking. Agrees to NRT. Side effects of the medication discussed- patient expressedunderstanding. F/u if unsuccessful with NRT - NICOTINE 21 MG/24 HR DAILY TRANSDERMAL PATCH - NICOTINE 14 MG/24 HR DAILY TRANSDERMAL PATCH - NICOTINE 7 MG/24 HR DAILY TRANSDERMAL PATCH 3. Dyshidrotic eczema - ICD9: 705.81, ICD10: L30.1 - TRIAMCINOLONE ACETONIDE 0.1 % TOPICAL CREAM BID. Use for up to two weeks then stop for one week - CERAMIDES 1,3,6-II TOPICAL CREAM Daily F/u if Sx fail to improve/worsen 4. Encounter for immunization - ICD9: V03.89, ICD10: Z23 - INFLUENZA VACCINE QUADRIVALENT 6 MO - 64 YRS IM - TDAP VACCINE AGE 7+ IM - PNEUMOCOCCAL VACCINE (PREVNAR 20) Fernando Yepez DO July 18, 2022 8:29 AM Follow up in 6 months for HTN documented in this encounterMer[facility] Miscellaneous Notes* Telephone Encounter - Savita Potter APRN.BOOK JACKET COVER MACHINE OPERATOR - 06/07/2022 9:45 AM EDT The following approved medication requests have been transmitted electronically. Requested Prescriptions Signed Prescriptions Disp Refills norethindrone (AYGESTIN) 5 mg tablet 90 tablet 1 Sig: Take 1 tablet by mouth once daily. Authorizing Provider: HERON SILVEIRA Ordering User: SAVITA POTTER Pharmacy Information Pharmacy Address [id number] [address] [place] [address] Savita Potter APRN.CNP June 07, 2022 9:45 AM * Telephone Encounter - Giuliana Long RN - 06/07/2022 8:05 AM EDT Refill request: norethindrone (AYGESTIN) 5 mg tablet Last visit 05/03/22: Plan: -May continue to increase physical activity as tolerated -Discussed the role of suppression to decrease chances of recurrence -May resume intercourse -Follow up with general provider for annual care -All questions answered and pt agrees with plan - Follow up in for endometriosis surveillance Called Pt to ask how medication is working. Pt denies adverse reaction or any issues. Pt is wondering if she could have refills to get her through to her appointment on 11/06/21? Giuliana Long RN June 07, 2022 8:16 AM documented in this encounterMer[facility]07-21-2022 History of Present illness Narrative* Heron Chavarria MD - 05/03/2022 12:58 PM EDT Images from the original note were not included. [facility] SECTION FOR MINIMALLY INVASIVE GYNECOLOGIC SURGERY OUTPATIENT VISIT DATE 05/03/2022 OUTPATIENT VISIT TYPE POST OPERATIVE FOLLOW UP History: Rad Eli is a 41 year old female here for post operative follow up appointment. She underwent SURGERY/PROCEDURE(S): Robotic assisted total laparoscopic hysterectomy, bilateral salpingectomy, bilateral ovarian cystectomy, excision of endometriosis, bilateral ureterolysis, ligation of the uterine vessels at their origin, rectal shaving, bowel integrity test on 03/09/2022 She reports feeling well since her procedure. Her appetite is good. She describes her pain as no pain presently. She is currently taking nothing for pain control. She has not had sexual intercourse since the procedure. Denies nausea/vomiting/chest pain/shortness of breath. Ambulating well. No issues with voiding or BMs. Operative findings included: FINDINGS Anterior cul-de-sac- Clean, no lesions Posterior cul-de-sac- Obliterated with bilateral kissing ovaries and the rectum adherent to the posterior uterus and retro-cervical area. Left ovarian fossa- Pulled in to the fibrosis at the midline Right ovarian fossa- Pulled in to the fibrosis at the midline Uterosacral ligaments- *Pulled in to the fibrosis at the midline Uterus- normal appearing fallopian tubes and ovaries- Normal bilaterally Bowel and Appendix- Appendix normal Rectum as above, 2 cm fibrotic plaque including the peritoneal reflection, sigmoid appeared normal. No evidence of defects after bowel integrity test Diaphragmatic peritoneum- normal appearing On cystoscopy, bilateral ureteral jets patent as indicated by strong jets of urine from ureteral ostia and intact bladder urothelium, normal urinary trigone The pathology report reveals: FINAL DIAGNOSIS A. Uterus, cervix, and bilateral fallopian tubes, hysterectomy and bilateral salpingectomy: Cervix: Mild chronic cervicitis. Endometrium: Proliferative endometrium. Myometrium: Extensive full-thickness adenomyosis. - Focal complex Non-atypical endometrial hyperplasia. Serosa: Focal serosal endometriosis. Bilateral fallopian tubes: Benign paratubal cyst with calcification. B. Rectal shaving, biopsy: - Endometriosis. C. Retro cervical lesion, biopsy: - Endometriosis. D. Retro cervical nodule, biopsy: - Endometriosis. E. Right ovarian cyst, excision: - Endometriosis and endometriotic cyst. F. Left ovarian cyst, excision: - Endometriotic cyst. G. Left ovarian fossa, biopsy: - Endometriosis. ROS: Constitutional: Denies fever or chills GI: Denies abdominal pain, nausea, vomiting, bloody stools or diarrhea : Denies dysuria Integument: Denies rash Psychiatric: Denies depression or anxiety Exam: Vitals: 05/03/22 1304 Weight: 81.6 kg (180 lb) Height: 168.9 cm (5' 6.5 ) @HTWT@ Body mass index is 28.62 kg/m . Neuro/psych: Alert and oriented x 3 in a pleasant mood Skin: Warm, dry and intact Abdomen: Soft, non tender, non distended, no hepatosplenomegaly or hernias. Incision: incisions are well healed Pelvic: Def Assessment: Ms. Rad Eli is a 41 year old female presenting for postop check status post Robotic assisted total laparoscopic hysterectomy, bilateral salpingectomy, bilateral ovarian cystectomy, excision of endometriosis, bilateral ureterolysis, ligation of the uterine vessels at their origin, rectal shaving, bowel integrity test on 03/09/2022 . Plan: -May continue to increase physical activity as tolerated -Discussed the role of suppression to decrease chances of recurrence -May resume intercourse -Follow up with general provider for annual care -All questions answered and pt agrees with plan - Follow up in for endometriosis surveillance Scribe Attestation: By signing my name below, I, Klarissa Stevens RN, attest that this documentation has been prepared under the direction and in the presence of Dr. Heron Chavarria. Electronically Signed:Klarissa Stevens RN, scribe, May 03, 2022 12:59 PM Heron Chavarria MD documented in this encounterMer[facility]07-08-2022 Miscellaneous Notes* Letter - Mammography Coordinator - 04/20/2022 7:30 AM EDT April 20, 2022 PID: [id number] Rad Eli [address] [place] [address] Dear Ms. Eli, We are pleased to inform you that the results of your recent breast imaging exam on 04/19/2022 are normal. Early detection of cancer is very important. We also understand recommendations regarding breast cancer screening are controversial. Please discuss with your primary care provider which strategy is best for you and whether a mammogram is right for you. Your imaging studies and report will be [facility] as part of [facility] permanent medical record and are available for your continuing care. Thank you for allowing us to help in meeting your health care needs. Sincerely, Dr. Sears Interpreting Radiologist [facility] (Normal over 40) documented in this encounterCleveland [id number] NoteHNO ID: [id number] Author: RT Tyrone(Kwabena) Service: Radiology Author Type: Technologist Type: Progress Notes Filed: 04/19/2022 3:28 PM Note Text: Radiology Service Progress Note PATIENT NAME: Rad Eli DATE OF SERVICE: April 19, 2022 TIME: 3:28 PM PATIENT IDENTITY VERIFICATION COMPLETED USING TWO (2) IDENTIFIERS: Name and Date of confirmed by patient verbally. FALL SCREENING: Has the patient had 2 falls in the last year or 1 fall with injury or currently using an Ambulatory Assistive Device (Walker, Cane, Wheelchair, Crutches, etc.)? No PATIENT GENDER DATA: Female. status: : No status: NO. PATIENT RELEVANT IMPLANT DATA REVIEWED: Not Applicable RADIOLOGY DEPARTMENT: Mammography PERIPHERAL IV DATA: Not applicable SIGNED BY: RT Tyrone(Kwabena) April 19, 2022 3:28 PMSelect Medical Trihealth Rehabilitation [id number] History of Present illness Narrative* Savita Potter APRN.BOOK JACKET COVER MACHINE OPERATOR - 03/22/2022 8:19 AM EDT DATE OF SERVICE: March 22, 2022 PROBLEM: Rad Eli presents for postop virtual visit SURGERY & DATE: 03/09/22, Robotic assisted total laparoscopic hysterectomy, bilateral salpingectomy, bilateral ovarian cystectomy, excision of endometriosis, bilateral ureterolysis, ligation of the uterine vessels at their origin, rectal shaving, bowel integrity test. PATHOLOGY: FINAL DIAGNOSIS A. Uterus, cervix, and bilateral fallopian tubes, hysterectomy and bilateral salpingectomy: Cervix: Mild chronic cervicitis. Endometrium: Proliferative endometrium. Myometrium: Extensive full-thickness adenomyosis. - Focal complex Non-atypical endometrial hyperplasia. Serosa: Focal serosal endometriosis. Bilateral fallopian tubes: Benign paratubal cyst with calcification. B. Rectal shaving, biopsy: - Endometriosis. C. Retro cervical lesion, biopsy: - Endometriosis. D. Retro cervical nodule, biopsy: - Endometriosis. E. Right ovarian cyst, excision: - Endometriosis and endometriotic cyst. F. Left ovarian cyst, excision: - Endometriotic cyst. G. Left ovarian fossa, biopsy: - Endometriosis. SUBJECTIVE/INTERVAL HISTORY: Rad Eli reports that she feels well. No fever or chills. No shortness of breath, cough, or chest pain. No incisional redness, swelling, or drainage. Bowels are a little slow to resume. She is having BMs which are inconsistent, having BMs 3-4 times per week Voiding is okay with slight burning at the end of her stream, no frequency or urgency Very light vaginal spotting Pain well controlled on Ibuprofen She has not driven yet and has not had intercourse since surgery OBJECTIVE: VITALS: Deferred for virtual visit GENERAL: She is alert, oriented, pleasant and cooperative. LUNGS: Normal inspiratory effort ABDOMEN: Non-distended, incision(s) healing well. ASSESSMENT: Encounter Diagnosis ICD-10-CM 1. S/P hysterectomy Z90.710 2. Post-operative state Z98.890 3. Endometriosis determined by laparoscopy N80.9 PLAN: 1. Discussed results of pathology and implications with patient. 2. Postop restrictions and wound care reviewed. 3. Follow up with Dr. Denson 05/03/22 Savita Potter APRN.JOSÉ MIGUEL documented in this encounterMer[facility]05-27-2022 NoteHNO ID: [id number] Author: Mable Ware (Senior Data Quality Analyst) Service: Pharmacy Author Type: ? Type: Plan of Care Filed: 03/14/2022 1:39 PM Note Text: PHARMACY BEDSIDE DELIVERY SERVICE Patient Name: Rad Eli The marked outpatient medications were filled and picked up at outpatient pharmacy. Medication List START taking these medications ISIAH-YESSICA 8.6 mg TabX Generic drug: senna Take 1 tablet by mouth twice daily. oxyCODONE IR 5 mg immediate release tabletX Commonly known as: ROXICODONE Take 1 tablet by mouth every 8 hours as needed for pain. CHANGE how you take these medications * AdviL 200 mg tablet Generic drug: ibuprofen What changed: Another medication with the same name was added. Make sure you understand how and when to take each. * ibuprofen 600 mg tabletX Commonly known as: MOTRIN Take 1 tablet by mouth every 6 hours as needed for pain. What changed: You were already taking a medication with the same name, and this prescription was added. Make sure you understand how and when to take each. * TylenoL 325 mg Cap Generic drug: acetaminophen What changed: Another medication with the same name was added. Make sure you understand how and when to take each. * acetaminophen 500 mg tabletX Commonly known as: TYLENOL EXTRA STRENGTH Take 2 tablets by mouth every 6 hours as needed for pain. What changed: You were already taking a medication with the same name, and this prescription was added. Make sure you understand how and when to take each. * This list has 4 medication(s) that are the same as other medications prescribed for you. Read the directions carefully, and ask your doctor or other care provider to review them with you. CONTINUE taking these medications hydroCHLOROthiazide 25 mg tablet Commonly known as: HYDRODIURIL, ESIDRIX Take 1 tablet by mouth once daily. metoprolol succinate ER 25 mg 24 hr tablet Commonly known as: TOPROL XL Take 1 tablet by mouth once daily. Multivitamin capsule You might also be taking other medications not listed above. If you have questions about any of your other medications, talk to the person who prescribed them or your Primary Care Provider. Mable Ware (Senior Data Quality Analyst) PAGER: [phone] March 13, 2022 1:38 [facility]05-27-2022 NoteHNO ID: [id number] Author: Valarie Pruett APRN.FACE MAN Service: Anesthesiology Author Type: Nurse Finisher Denture Type: Anesthesia Procedure Notes Filed: 03/09/2022 1:08 PM Note Text: ANESTHESIOLOGY PROCEDURE NOTE PIV General Information Procedure Start Time/Medication Administration: 03/09/2022 12:52 PM Patient Location: OR Staffing Anesthesiologist: Ken Lai I, MD Performed by: anesthesiologist Preparation Sterility Preparation: hand hygiene performed prior to procedure, surgical cap used, mask used, skin prep agent completely dried prior to procedure Site Prep: Chloraprep Procedure Details Indication: need for IV access Needle Size/Type: 18 gauge angiocath Orientation: Left Location: Wrist Imaging Guidance Used: No SIGNATURE: Valarie Pruett APRN.FACE MAN PATIENT NAME: Rad Eli DATE: March 09, 2022 TIME: 1:07 PM CSN: [id number] NoteHNO ID: [id number] Author: Valarie Pruett APRN.FACE MAN Service: Anesthesiology Author Type: Nurse Finisher Denture Type: Anesthesia Procedure Notes Filed: 03/09/2022 1:08 PM Note Text: ANESTHESIOLOGY PROCEDURE NOTE Airway General Information Procedure Start Time/Medication Administration: 03/09/2022 12:39 PM Patient location during procedure: OR Staffing Anesthesiologist: Ken Lai I, MD FACE MAN: Valarie Pruett APRN.FACE MAN Performed by: FACE MAN Indications and Patient Condition Preoxygenated: yes Difficult Mask: No Indications for airway management: anesthesia anesthesia circuit Method: sleep Airway Accessory: oral airway (#4) Final Airway Details Final airway type: endotracheal airway Final Endotracheal Airway: ETT Cuffed: yes Successful intubation technique: direct laryngoscopy Endotracheal tube insertion site: oral Blade: Golden Blade size: #4 ETT size (mm): 7.0 Measured from: lips Measurement (cm): 921 Placement verified by: capnometry Cormack-Lehane Classification: grade I - full view of glottis Number of attempts at approach: 1 Failed airway: no Unrecognized esophageal intubation: no Airway not difficult SIGNATURE: Valarie Pruett APRN.FACE MAN PATIENT NAME: Rad Eli DATE: March 09, 2022 TIME: 1:06 PM CSN: [id number] History of Past illness Narrative* Problem Noted Date Resolved Date Uterine leiomyoma 07/18/2022 07/18/2022 COVID-19 03/08/2022 07/18/2022 Anemia 03/08/2022 07/18/2022 JOSEPH (acute kidney injury) 03/08/20222021 Pancreatitis 03/08/2022 07/18/2022 Pelvic mass 03/08/2022 07/18/2022 Blood pressure elevated without history of HTN 0 02/21/2022 03/08/2022 Last Assessment & Plan: Assessment: appt 02/22 [facility] practice for elevated BP. Adenomyosis 10/20/2021 07/18/2022 NEGATIVE MEDICAL HISTORY 08/24/2021 022 documented as of this encounter (statuses as of 07/18/2022) [facility] History of Present illness Narrative* Bing Clark DO - 03/08/2022 2:00 PM EDT VIRTUAL VISIT PROGRESS NOTE This is a virtual visit using HIPAA compliant video platform. It required patient-provider interaction for the medical decision making as documented below. Chief Complaint: Rad Eli is a 41 year old female who presents for follow up HTN. HPI: HTN: Taking 25mg daily HCTZ Still with Home BP's running 140/90's on average, occasional 130's systolic Denies cardiac symptoms Denies side effects of medication Has since last visit stopped NSAID use Is scheduled for laparoscopic endometriosis surgery tomorrow with Dr. Denson Health Maintenance: COVID-19 VACCINE(1) Never done PNEUMOCOCCAL(1 - PCV) Never done DTAP,TDAP,TD(1 - Tdap) Never done MAMMOGRAM Never done DEPRESSION SCREENING due on 09/11/2020 PAST MEDICAL HISTORY Diagnosis Date COVID 08/13/2021 NEGATIVE MEDICAL HISTORY PAST SURGICAL HISTORY Procedure Laterality Date BREAST LUMPECTOMY HX Left 2000 benign L'SCOPE DX W/WO BRUSHINGS/WASHINGS 10/19/2021 Diagnostic laparascopy - canceled [facility] due to endoemtriosis, frozen posterior cul de sac TONSILLECTOMY & ADENOIDECTOMY <AGE 12 WOUND CLOSURE 1997 right posterior arm plastic closure FAMILY HISTORY Problem Relation Age of Onset Hypertension Father Heart disease Father Diabetes Father Obstructive Sleep Apnea Father other (atrial fib) Father Diabetes Paternal Grandfather Heart disease Paternal Grandfather Social History Tobacco Use Smoking status: Current Every Day Smoker Packs/day: 1.00 Years: 25.00 Pack years: 25.00 Types: Cigarettes Smokeless tobacco: Never Used Vaping Use Vaping Use: Never used Substance Use Topics Alcohol use: Yes Comment: 0-1 monthly Drug use: Never Medications: hydroCHLOROthiazide (HYDRODIURIL, ESIDRIX) 25 mg tablet Take 1 tablet by mouth once daily. ibuprofen (ADVIL) 200 mg tablet Take 600 mg by mouth every 6 hours as needed. acetaminophen (TYLENOL) 325 mg cap Take by mouth. Multivitamin capsule Take 1 capsule by mouth once daily. ALLERGIES Allergen Reactions Biaxin [Clarithromy* Anaphylaxis Ceclor [Cefaclor] Hives Sulfamethoxazole-Tr* Hives Patient's Medications and Allergies were reviewed. Review of Systems: Per HPI Physical Exam: VIDEO EXAM: (if completed, performed via video enabled technology) GENERAL: alert and appropriate, in no distress and well nourished SKIN: no rash noted HEAD: normocephalic, no abnormality or lesion noted EYES: no injection and visual acuity is grossly normal EARS: external ears normal RESPIRATORY: breathing non-labored and no grunting/flaring/retractions NEUROLOGIC: no obvious deficit PSYCH: mood and behavior normal Assessment/Plan: 1. Hypertension, essential - ICD9: 401.9, ICD10: I10 - suboptimal control - Begin metoprolol (Lopressor/Toprol), as in perioperative stage BB can offer cardioprotection thatHCTZ does not. Can take tonight preop then again same day postop. - Discontinue HCTZ - Recommended regular aerobic exercise. - Recommend home blood pressure monitoring, to bring results in on next visit - Goal of BP <130/80 - Recommended no refined sugar, low refined starch, healthy oil intake (olive oil), healthy protein(fish) along the lines of the Mediterranean diet. - METOPROLOL SUCCINATE ER 25 MG TABLET,EXTENDED RELEASE 24 HR Bing Clark DO, [facility] [place] Specialized Women's Health Fellow March 08, 2022 documented in this encounterMer[facility]-19-[facility]22 Nurse Note* Patricia Hahn RN - 03/01/2022 11:30 AM EDT Intake information documented in the prior visit with nurse teaching today. Patricia Hahn RN documented in this encounterMercy [facility]05-19-2022 History of Present illness Narrative* Heron Chavarria MD - 03/01/2022 11:25 AM EDT Images from the original note were not included. [facility] [place] SECTION FOR MINIMALLY INVASIVE GYNECOLOGIC SURGERY OUTPATIENT VISIT DATE 03/01/2022 OUTPATIENT VISIT TYPE HISTORY AND PHYSICAL Referring MD: JIMY HPI: Rad Eli is a 41 year old female patient followed in Minimally Invasive GynecologicSurgery for preoperative history and physical for upcoming ROBOTIC LAPAROSCOPIC TOTAL HYSTERECTOMY W/ BSO UTERUS=>250G, ROBOTIC FULGURATION OR EXCISION OF LESIONS OF THE OVARY PELVIC VISCERA OR PERITONEAL SURFACE BY ANY METHOD . She has tried diagnostic laparoscopy at [facility] on 10/19/2021. She was scheduled for total laparoscopic hysterectomy. However it was found that she had a frozen posterior cul-de-sac with endometriosis involving both ovaries. She had some small endometriosis implants on her [id number]. The remainder of her peritoneal cavity appeared clear and normal. Decision was made to refer her to minimally invasive gynecology for surgery and consultation regarding endometriosis. Patient's bleeding has been controlled and her anemia is corrected. Patient is aware of plan. Katerin Naidu MD and has decided she is ready to proceed with surgical intervention for her condition. Please see note from 10/24/21 for full details. After thorough discussion of options, she is scheduledfor the above described procedure with Dr. Denson on 03/09/22. Her preoperative work up has included the following: MRI: 02/12/22 IMPRESSION: Asymmetric thickening of the posterior uterine wall with imaging features suggestive of adenomyosis over underlying leiomyoma. Extensive posterior and middle compartment infiltrative endometriosis including a small anterior rectosigmoid lesion as detailed in the synoptic report. Bilateral endometriomas as described. Indeterminate findings near the anterior superior bladder wall possibly fibrosis related to prior surgery or small endometriosis deposit. EMB results: 08/24/21 CONVERTED FINAL DIAGNOSIS 1. Endometrial, biopsy (A): -Benign proliferative endometrium with focal stromal breakdown XC 08/27/2021 PAST MEDICAL HISTORY Diagnosis Date COVID 08/13/2021 NEGATIVE MEDICAL HISTORY PAST SURGICAL HISTORY Procedure Laterality Date BREAST LUMPECTOMY HX Left 2000 benign L'SCOPE DX W/WO BRUSHINGS/WASHINGS 10/19/2021 Diagnostic laparascopy - canceled [facility] due to endoemtriosis, frozen posterior cul de sac TONSILLECTOMY & ADENOIDECTOMY <AGE 12 WOUND CLOSURE 1997 right posterior arm plastic closure Current Outpatient Medications on File Prior to Visit Medication Sig hydroCHLOROthiazide (HYDRODIURIL, ESIDRIX) 25 mg tablet Take 1 tablet by mouth once daily. ibuprofen (ADVIL) 200 mg tablet Take 600 mg by mouth every 6 hours as needed. acetaminophen (TYLENOL) 325 mg cap Take by mouth. Multivitamin capsule Take 1 capsule by mouth once daily. No current facility-administered medications on file prior to visit. ALLERGIES Allergen Reactions Biaxin [Clarithromy* Anaphylaxis Ceclor [Cefaclor] Hives Sulfamethoxazole-Tr* Hives There is no immunization history on file for this patient. Social History Social History Narrative Not on file FAMILY HISTORY Problem Relation Age of Onset Hypertension Father Heart disease Father Diabetes Father Obstructive Sleep Apnea Father other (atrial fib) Father Diabetes Paternal Grandfather Heart disease Paternal Grandfather OB History T0 L0 SAB0 IAB0 Ectopic0 Multiple0 Live Births0 OB History T0 L0 SAB0 IAB0 Ectopic0 Multiple0 Live Births0 Patient's last menstrual period was 09/02/2021 (exact date). Review of Systems: Constitutional: Denies fever or chills Eyes: Denies change in visual acuity HENT: Denies nasal congestion or sore throat Respiratory: Denies cough or shortness of breath Cardiovascular: Denies chest pain or edema GI: Denies abdominal pain, nausea, vomiting, bloody stools or diarrhea : Denies dysuria Musculoskeletal: Denies back pain or joint pain Integument: Denies rash Neurologic: Denies headache, focal weakness or sensory changes Endocrine: Denies polyuria or polydipsia Lymphatic: Denies swollen glands Psychiatric: Denies depression or anxiety Physical Exam: There were no vitals filed for this visit. @HTWT@ There is no height or weight on file to calculate BMI. General Appearance: WDWN, NAD Psychiatric: Normal orientation, mood and affect Neck: Thyroid normal, no masses Breasts: Deferred Skin:No rashes, lesions, or ulcers Lymph: Normal neck, cervical, groin, and axillae C/V: Normal heart sounds, no murmurs or external edema Lungs: Respiratory effort normal. Lungs clear bilaterally. Abdomen: Benign, soft, non-tender, no hernia, masses, or lymphadenpathy Pelvic examination: Def Assessment and Care Plan: Rad Eli is a 41 year old with Endometriosis of right ovary (primary encounter diagnosis) Endometriosis of left ovary Endometriosis of peritoneum Pelvic pain in female Abnormal uterine bleeding (aub) We discussed MRI findings. Patient does not want a bowel resection at this time but is amendable toshaving. CONSENT: The risks, benefits and alternatives as well as the indications of her planned surgery were reviewed with the patient today. Risks including but not limited to the following were outlined indetail: Bleeding rarely requiring blood transfusion with the associated risk of viral transmission of Hepatitis 1/700,000, HIV 1/2,000,000. The risks and benefits of autologous blood transfusion with predonation were also discussed. Infection requiring antibiotics, potential prolonged or re-hospitalization as well as possible re-operation. Damage to adjacent organs including but not limited to: bladder, bowels, ureters (tubes that connect kidneys to bladder), pelvic organs (ovaries, fallopian tubes, uterus or womb), blood vessels and nerves, with the possibility of re-operation. Medical complications associated with surgery and anesthesia including but not limited to: deep vein thromobosis (DVT, or blood clot in the leg), pulmonary embolus (PE, blood clot in the lungs), heart attack, stroke, or . All questions were answered to the patient s satisfaction and the informed consent as well as consent for blood transfusion was signed today. The risks and benefits of autologous blood transfusion were also reviewed and the patient has declined this option. The risks, benefits and alternatives of the planned procedure have been discussed with the patient and/or her legal life assurance representative, all questions have been answered and she agrees to proceed. Scribe Attestation: By signing my name below, I, , attest that this documentation has been prepared under the directionand in the presence of Heron Chavarria MD Electronically Signed:Patricia Hahn RN, scribe, March 01, 2022 11:26 AM Heron Chavarria MD Section of Minimally Invasive Gynecologic Surgery 03/01/2022 11:26 AM documented in this encounterMer[facility]05-19-2022 Instructions* Patient Instructions* Patricia Hahn RN - 03/01/2022 11:11 AM EDT Images from the original note were not included. PATIENT INSTRUCTIONS PRIOR TO SURGERY Please read these instructions carefully. Your surgery may be cancelled if you do not follow these instructions. PATIENTS WITHOUT DELAYED STOMACH EMPTYING: Do not to have any solid food to eat after midnight prior to surgery (this includes no gum, mints, smoking). You may drink small amounts (up to 12 oz) of clear liquids up until 2 hours prior to your arrival time. Clear liquids include water, fruit juices without pulp, carbonated beverages (i.e. jer shayan), electrolyte beverages (i.e. Gatorade), clear tea and black coffee, clear broth, popsicles and jello (nomilk). No alcohol the day before or day of surgery. PATIENTS WITH DELAYED STOMACH EMPTYING: I have been instructed not to have anything to eat or drink after midnight prior to my surgery (this includes no gum, mints, smoking). No alcohol the day before or day of surgery. MEDICATIONS: Unless your surgeon tells you differently, STOP THESE MEDICATIONS 7 DAYS PRIOR TO SURGERY: o ibuprofen (Motrin /Naproxen/Aleve/Advil) o aspirin o vitamin E o herbal medications and supplements o diet pills o ujrm-zxk-goghhql medications o Acetaminophen (Tylenol) is okay. If you are taking any of the following blood thinning medications, discuss these with your surgeon and your electrician marine or primary care physician: o Aspirin o clopidogrel (Plavix) o ticagrelor (Brilinta) o prasugrel (Efficient) o ticlodipine (Ticlid) o warfarin (Coumadin) o dibigatran (Pradaxa) o rivaroxaban (Xarelto) If you stop a blood-thinning medication, ask your surgeon when to resume taking it. If you are on oral hormone replacement (estrogen or progesterone), ask your surgeon if you need to stop this medication prior to surgery. Patients with diabetes o do not take morning diabetes medication (pills) on the morning of surgery o If you are on insulin, ask your doctor about how to take your insulin on the morning of surgery. o If your surgery is delayed, I notify the nurse or check-in desk that you have diabetes. If you use inhalers for breathing, use them as needed prior to surgery and bring them to the hospital. Medication(s) to be taken on the morning of surgery with a few sips of water: GENERAL Do not wear jewelry, body piercing(s), makeup, nail tanzanian, hairpins, or contacts on the day of surgery. Leave valuables and money at home or with family members. If you have Obstructive Sleep Apnea and use a CPAP/BiPAP machine, bring your mask, tubing, and machine with you on the day of surgery. If you are going home on the day of surgery, a responsible person must drive you home. It is suggested that someone stay with you for 24 hours. A business risk consultant or cabdriver is NOT a responsible caregiver. INFECTION PREVENTION Please notify your doctor if you have any signs of an infection (i.e. fever, severe cough, nasal congestion, pain with urination, abnormal vaginal discharge, etc). Shower the night before surgery AND the morning of surgery with Hibiclens (provided by your surgeon). If you are allergic to Hibiclens or unable to obtain the Hibiclens, please wash with antibacterial soap. Wash your body from the neck down, focusing on your abdomen, belly button and external genitalia. Do not forget to scrub any skin folds and creases. No lotions, oils, creams, or powders after your shower. Underarm deodorant is okay. No shaving (abdominal or pubic hair) or douching the day before surgery. You may be asked to apply an antiseptic solution called Chlorhexidine Gluconate (CHG) which will beprovided to you on arrival to the preop area. Hand washing is extremely important in preventing infection (for both you as the patient and for the caregivers). HOSPITALIZATION Before you leave the hospital, you typically need to be able to eat/drink, urinate, and have your pain controlled with oral medication. Your surgeon or other members of your surgeon s team will discuss any other specific medical issues related to your discharge with you. Your surgeon may order intermittent compression sleeves. These are massaging leg pumps to help prevent blood clots after surgery. It is also very important that you walk as soon as possible and as frequently as possible after surgery. This will help decrease your risk of blood clots, exercise your lungs and speed up your recovery after surgery. If you are admitted to the hospital overnight, you will be given an incentive spirometer, which is a breathing machine that will help make sure that you are taking deep breaths and expanding your lungs while in the hospital. [facility] TEAM At the [facility], we have a multidisciplinary team of caregivers that includes fellows, residents, nurse practitioners (library monitor), physician assistants (PAs), clinical nurse specialists (CNSs), nurses, medical assistants (MAs), patient care nursing assistants (PCNAs), social workers, rehabilitation case coordinator and many others. We all have different roles and responsibilities but we all are here to help you. If you spend the night in the hospital, a physician from your care team will see you the day after your surgery. At times, scheduling does not permit your surgeon to see you in the hospital the day after surgery. If this occurs, another physician on the urogynecology care team will see you in the hospital. THE DAY BEFORE SURGERY You will receive a call the day before surgery to give you your surgery / arrival time. If you have not received a call by 2:00 pm, you may call [phone] to find out your surgery / arrival time. THE DAY OF SURGERY/CHECK IN Surgery Location Parking Check-in Location [facility] [address] [facility] [place], [place] P Garage P-20 surgery center (unless otherwise instructed) [facility] [id number] [place], [place] Parking garage connected to hospital or [facility] Registration desk, first floor, [facility] [address] [place], [place] Parking lot in front of building [id number] (elevator to lower level) [facility] [address] [place], [place] Parking garage next to hospital or [facility] Atrium, Surgical Waiting Desk MINIMALLY INVASIVE LAPAROSCOPY POSTOPERATIVE INSTRUCTIONS ACTIVITY * No heavy lifting/pushing/pulling for 6 weeks. Do not lift anything more than 10 lbs (such as laundry, groceries, children, pets), vacuum, push heavy doors or grocery carts, etc, for 6 weeks. * You may climb stairs as tolerated. * Do not put anything in the vagina for 2 weeks after surgery unless otherwise instructed by your doctor (including tampons, douching, sexual intercourse, etc). * No driving for 1 week after surgery and not while taking narcotic pain medication. Drive defensively when you are ready. * Avoid sitting or lying in bed for more than 2 hours at a time while you are awake to reduce your risk of blood clots. * You may return to work when you are ready as long as you do not lift more than 10 pounds for 6 weeks. If you have a sedentary job or restuarant crew worker 1-2 weeks before returning to work is appropriate. You may return to work in 2-4 weeks if your job requires a lot of movement. Please contact your doctor if you need any return to work letters or medical leave paperwork to be completed. WOUND CARE * You will have small incisions on your abdomen. There will be dissolvable stitches under your skinthat do not need to be removed. If you have a piece of gauze with a clear bandage over your belly button, please remove that the day after surgery when you shower. If you have steri-strips (paper tape) on the incisions, these may be removed in about 1-2 weeks. It is OK to remove them if they are falling off. If skin glue is present, leave in place for at least 2 weeks. * Shower daily after surgery. Clean your incision with mild antibacterial soap and water. Pat your incision dry with a clean towel. No tub baths or swimming pools for six weeks or until wound is completely healed. * No ointments or antibacterial creams are required for incisions. Do NOT use cleansing agents likealcohol or hydrogen peroxide. * Wash your hands frequently, especially before touching your incision or changing any dressings. PAIN MANAGEMENT * Take your oral pain medication as needed. * Alternate Tylenol and ibuprofen/Motrin (if you are eligible). Each of these medications can be taken every six hours. Try to stagger them so that you are taking something for pain every three hours(ex. Take Motrin at 12:00, Tylenol at 3:00, Motrin at 6:00, etc.) to maximize pain relief. You should be taking 600mg of ibuprofen every 6 hours. You should be taking 1,000mg of tylenol every 6 hours. You should take every 6 hours with staggering and alternating. For example. 9am - ibuprofen 12pm - tylenol 3pm - ibuprofen 6pm - tylenol 9pm - ibuprofen 12am - tylenol 3am - ibuprofen 6am - tylenol Studies show this is as effective as narcotics for pain control without the side effects. Dosages * Tylenol 500-650 mg every 6 hours as needed * Motrin - 600 mg every 6 hours as needed * The maximum dose of Tylenol is 3000 mg in 24 hours, the maximum dose of Motrin/ibuprofen is 2400mg in 24 hours * Some pain medications can cause constipation. We recommend a stool softener (i.e. Colace) while you take these medications. * You may also take milk of magnesia or Miralax for constipation as directed on the bottle. * There is a risk for addiction with narcotic pain medication, so take with caution and do not takemore than the recommended amount. * Please be sure to dispose of leftover pain medication after you have recovered. You may dispose of unused narcotic medications in the trash with an unpleasant substance such as coffee grounds or cat litter or you can turn them in to a designated law enforcement/pharmacy narcotic box. You can alsocheck FDA.gov to assess which medications can be safely flushed down the toilet. * There are locations to dispose of unused medications at three [facility] locations: [facility] pharmacy, [facility] pharmacy, and the Pharmacy at the Main [place] for [facility] (inside the parking garage on the first floor). WHAT TO EXPECT AT HOME * Recovery from surgery is generally 2-4 weeks, but sometimes longer for more strenuous activity. It is normal to be very tired during this time. * It is normal to have some drainage or a small amount of vaginal bleeding after surgery that wouldrequire the use of a light pantiliner. This discharge may last up to 6 weeks. The bleeding and discharge should be light and should have no odor. * You may experience gas pain, abdominal swelling, or shoulder pain for 24-72 hours after surgery. This is from the carbon dioxide gas put into your abdomen to better visualize your organs. A warm shower, heating pad, and/or walking may help. WHEN TO CALL YOUR DOCTOR: * Fever (>100.4 F or 38.0 C) or chills. * Incision problems such as redness, warmth, swelling, or foul smelling drainage. * Severe nausea or persistent vomiting. * Bright red vaginal bleeding (soaking >1 pad/hour) or foul smelling vaginal drainage. * IT IS NORMAL TO HAVE A MINIMAL AMOUNT OF VAGINAL SPOTTING OR VAGINAL DISCHARGE FOR SEVERAL WEEKS * Severe pain not relieved with pain medication. * Pain and swelling in your legs, especially if it is only on one side. * Pain with urination, cloudy urine, or foul smelling urine. * Severe redness/irritation at sites where adhesive bandages were applied. * Or if you have any other problems or questions. FREQUENTLY ASKED QUESTIONS/CONCERNS: Constipation Constipation is common and it is normal to not have a bowel movement for up to one week after surgery. You should still be passing gas despite constipation and should be able to tolerate both liquid and solid food without nausea or vomiting. Concerning symptoms would be constipation without gas, with fever, or nausea/vomiting and inabilityto eat. Call your doctor if these symptoms occur. Over the counter stool softeners including Colace twice daily and Miralax up to twice daily can help with constipation. 1. Senna (1 capsule) two times a day 2. Miralax (polyethylene glycol) 17 g (1 measured capful or 1 packet) once a day. If you have not had a bowel movement 3 days after surgery, you may take the Miralax two times a day. If you have any discomfort because of the need to have a bowel movement, you may add milk of magnesia or magnesium citrate (available at your local pharmacy without a prescription) at any time. Do not take milk of magnesia or magnesium citrate if you have kidney failure. If you have loose or watery stools, stop taking the medications. Call your doctor s office if you have questions. Drainage from incisions Clear/pink drainage or a minimal amount of bleeding from incisions can be normal after laparoscopicsurgery. Concerning drainage that is persistent, thick/cloudy, or foul smelling can be an indication of infection and should prompt you to call your doctor. Post-operative pain Pain after surgery is a challenging part of the healing process. Pain may be present for weeks but should gradually get better. Increasing pain or pain that is unbearable warrants evaluation by your doctor or in the emergency department. By state law we cannot immediately provide narcotic pain medication over the phone. Stitches If 2 weeks have passed and you have a visible stitch at a laparoscopic incision site it is OK for you to cut it to remove it. CALL 911 OR GO TO THE EMERGENCY ROOM IF YOU HAVE: Any shortness of breath, difficulty breathing, orchest pain. IF YOU FEEL YOU NEED TO GO TO THE EMERGENCY DEPARTMENT POST OPERATIVELY, WE RECOMMEND THE MAIN CAMPUS EMERGENCY DEPARTMENT FOR CONTINUITY OF CARE AND THE BEST ACCESS TO ONE OF THE SURGEONS ON OUR TEAM. Address: [address] [place] [id number] MINIMALLY INVASIVE GYNECOLOGIC SURGERY (MIGS)/BENIGN GYNECOLOGY CONTACTS: Surgeons: Dr. Sienna Carrizales Dr. Kayla Powell Dr. Kareen Woody Dr. Heron Chavarria Dr. Bella Odonnell Dr. Haydee Roberson Dr. Rocio Moe [facility] Nurse Practitioners: Savita Potter, BOLOGNA LACER.BOOK JACKET COVER MACHINE OPERATOR Kelley Young, BOLOGNA LACER.BOOK JACKET COVER MACHINE OPERATOR Arabella Trejo, BOLOGNA LACER.BOOK JACKET COVER MACHINE OPERATOR Dominique Tse, BOLOGNA LACER.BOOK JACKET COVER MACHINE OPERATOR Surgery Scheduling Office: Call the day before surgery after 2pm for your surgery arrival time After hours phone number: or toll free Ask the stacker operator to page the flat folding machine operator publications designer.' Business hours are Saturday - Saturday from 8:00am - 4:30pm. We are closed on weekends and major holidays. documented in this encounterMer[facility]05-19-2022 History of Present illness Narrative* Patricia Hahn RN - 03/01/2022 11:10 AM EDT DATE OF SERVICE: 03/01/2022 PROBLEM: Rad Eli presents for pre-op teaching. PRE-OP DIAGNOSIS: Endometriosis of right ovary, Endometriosis of Peritoneum, Endometriosis of left ovary, Endometriosis SCHEDULED SURGERY AND DATE: 03/09/22 ROBOTIC LAPAROSCOPIC TOTAL HYSTERECTOMY W/ BSO UTERUS=>250G, ROBOTIC FULGURATION OR EXCISION OF LESIONS OF THE OVARY PELVIC VISCERA OR PERITONEAL SURFACE BY ANY METHOD PRIMARY SURGEON: Heron Chavarria MD NURSING PREOP ASSESSMENT: Fevers, chills, cough, or nasal congestion: No Vaginal itching, burning, discharge, or odor: No Pain with urination, frequency, urgency, cloudy or foul smelling urine: No If yes to any of the above then MD notified: Not Applicable ADVANCED CARE PLANNING: Does the patient have an advanced directive: No Does [facility] have a copy of the patient's advanced directive: No Was advanced directive given to the patient: Yes PATIENT LEARNING ASSESSMENT: Individual patient/family learning needs evaluated and addressed: Yes Cognitive ability: Alert and oriented Motivation to learn: Interested Factors affecting learning: None Physical limitations affecting learning: None Patient learns best by: Individual Instruction Written Instruction - Hand-outs Verbal Instruction Method of instruction: Individual instruction Written instruction - handouts Verbal instruction Instructions provided to: Patient via face to face discussion Family support: Unable to assess - Family not present PRE- AND POST-OPERATIVE TEACHING Pre-operative teaching and supplemental material provided and reviewed with patient: Your Surgical Guide Book Map Written pre-op and post-op instructions Antibacterial soap: given to patient today Pre-operative instructions provided and reviewed with patient/family: No eating, drinking, or smoking after midnight prior to surgery unless otherwise directed No alcohol the day before surgery Medications as prescribed by anesthesia, internal medicine, surgeon, or ELECTRIC ORGAN ASSEMBLER Stop NSAIDs, Aspirin (ASA), vitamins, herbal supplements, herbal teas, and diet pills 7-10 days prior to surgery OK to take tylenol prn pain unless otherwise directed by physician Call surgery coordinators if any other questions about surgery date or pre-op appointments Bowel prep instructions: NPO after midnight. No solid foods after midnight including gum, mints, and smoking. May drink up to 12oz of clear liquids up to 2 hours prior to arrival time. Day of surgery instructions provided and reviewed with patient/family: Arrival time (call surgical coordinators on the office day prior to surgery for verification) No jewelry, body piercing, makeup, contacts, lotions, nail tanzanian on fingers, or anything in hair on arrival to surgery Wear low healed shoes and loose fitting clothing Leave all valuables at home or with a family member Directions to [facility] Parking/parking validation on the day prior to surgery Admission/check in [facility] area Placement of IV Surgical positioning Family waiting area Surgical recovery room Post-operative instructions provided and reviewed with patient/family: SEE PATIENT INSTRUCTION SECTION FOR DETAILS. ACTIVITY - No heavy lifting (>5-10 lbs), no pushing/pulling, OK to climb stairs DRIVING - No driving for 3 weeks unless prior approval from , OK to ride in a car. DIET - Advance diet as tolerated and as ordered by MD, drink 8 glasses of water a day, eat a diet high in protein and fiber unless otherwise directed by MD. CATHETER - Will be inserted during surgery, you may go home with a catheter for 7-10 days and will have to come back to the office for a voiding trial, UTI symptoms reviewed and patient instructed devyn IVY of any of these symptoms. INCISION CARE - Keep incision clean and dry, jose angel to be removed 7-10 days after surgery, steristrips do not need to be removed by MD BATHING - OK to shower after surgery unless otherwise directed by MD, no tub baths. PAIN MEDICATION - IV pain medication after surgery, IV BOAT CANVAS MAKER INSTALLER if ordered by MD, discharged home with aprescription for PO pain medication, pain management after surgery, side effects of pain medication(including constipation, dizziness, drowsiness, and medication interactions). VAGINAL CARE - Pelvic rest x6 weeks unless otherwise directed by MD. DVT PROPHYLAXIS - Early ambulation, SCDs, injectable anticoagulants (heparin, lovenox, etc) RESPIRATORY - Incentive spirometer, coughing/deep breathing exercises, ambulation. RETURN TO WORK - As directed by physician, please send any FMLA papers to physician's community youth secretary. SYMPTOMS TO NOTIFY MD - Fever, chills, nausea, vomiting, increased or severe pain, heavy vaginal bleeding, foul smelling vaginal drainage, pain or swelling in extremities. URGENT SYMPTOMS - Call 911 or go to ER if any shortness of breath, difficulty breathing, or chest pain. HOW TO CONTACT PHYSICIAN - Physician's office phone number given to patient, if after hours patientinstructed to call stacker operator and ask for publications designer flat folding machine operator onc resident. TATO program offered to patient: Yes Additional teaching as indicated by patient/family learning needs. PATIENT LEARNING EVALUATION & FOLLOW UP PLAN: Patient and/or family express understanding of upcoming surgery, pre-operative preparation, the operative process, and post-operative instructions. Follow up plan: Complete - No need for follow-up Patient has a post-op appointment scheduled: Yes Referral (recommentation): None Educator: Patricia Hahn RN [facility] [place] documented in this encounterMer[facility] Instructions* Patient Instructions* Bing Clark DO - 02/22/2022 9:29 AM EDT Images from the original note were not included. documented in this encounterMercy [facility]05-12-2022 History of Present illness Narrative* Bing Clark DO - 02/22/2022 9:00 AM EDT Rad Eli is a 41 year old White female who presents with concerns of Hypertension. Patient is toundergo surgery for endometriosis in 2 weeks. Was at preop appointment yesterday and BP recorded at170/91. Patient has had multiple BP's > 140/90 in the last 6 months. Duration of hypertension: 6 months . Hospitalization and/or ER visits for hypertensive urgency/emergency: none. End organ damage: None Alcohol use: no BMI: Body mass index is 27.5 kg/m . NSAID/ OCP/ nasal decongestant/ licorice use: nsaids daily for endo pain Known ARINA/ CPAP use: none Recreational drug use: none Hypokalemia: previously, yes Any known endocrine disorder (thyroid disease/ parathyroid disease/ Patricia syndrome): none Medication compliance: n/a Prior secondary workup: Last 3 CMPs: Glucose (mg/dL) Date Value 02/21/2022 89 08/13/2021 76 08/13/2021 108 09/11/2019 102 Potassium (mmol/L) Date Value 02/21/2022 4.7 08/13/2021 2.3 08/13/2021 1.9 09/11/2019 3.3 Sodium (mmol/L) Date Value 02/21/2022 139 08/13/2021 131 08/13/2021 128 09/11/2019 136 Chloride (mmol/L) Date Value 02/21/2022 102 08/13/2021 99 08/13/2021 88 09/11/2019 98 CO2 (mmol/L) Date Value 02/21/2022 25 08/13/2021 13 08/13/2021 11 09/11/2019 23 CO2 Content, Venous (mmol/L) Date Value 08/13/2021 15.5 Creatinine (mg/dL) Date Value 02/21/2022 0.68 08/13/2021 1.48 08/13/2021 2.25 09/11/2019 0.65 BUN (mg/dL) Date Value 02/21/2022 14 08/13/2021 90 08/13/2021 105 09/11/2019 10 Anion Gap (mmol/L) Date Value 02/21/2022 12 08/13/2021 19 08/13/2021 29 09/11/2019 15 Calcium (mg/dL) Date Value 09/11/2019 9.1 Calcium, Total (mg/dL) Date Value 02/21/2022 9.9 08/13/2021 7.1 08/13/2021 8.5 Last UA Chemstrip: Color (no units) Date Value 08/13/2021 Yellow Clarity (no units) Date Value 08/13/2021 Cloudy Glucose, Urine (no units) Date Value 08/13/2021 Negative Bilirubin, Urine (no units) Date Value 08/13/2021 Negative Ketones, Urine (no units) Date Value 08/13/2021 Negative Specific [place], Ur (no units) Date Value 08/13/2021 1.015 Hemoglobin/Blood,Ur (no units) Date Value 08/13/2021 2+ pH, Urine (no units) Date Value 08/13/2021 6.0 Protein, Urine (no units) Date Value 08/13/2021 Comment: Visible blood causes falsely elevated results for analyte Protein. Due to this limitation, Protein will not be reported for patients whose urine contains visible blood. Urobilinogen (no units) Date Value 08/13/2021 0.2 EU/dL Nitrites (no units) Date Value 08/13/2021 Negative Leuk Esterase (no units) Date Value 08/13/2021 Negative Current Outpatient Medications Medication Sig ibuprofen (ADVIL) 200 mg tablet Take 600 mg by mouth every 6 hours as needed. acetaminophen (TYLENOL) 325 mg cap Take by mouth. Multivitamin capsule Take 1 capsule by mouth once daily. No current facility-administered medications for this visit. Allergies As of Date: 02/22/2022 Allergen Noted Reaction BIAXIN [CLARITHROMYCIN] 08/24/2021 Anaphylaxis CECLOR [CEFACLOR] 09/11/2019 Hives SULFAMETHOXAZOLE-TRIMETHOPRIM 09/11/2019 Hives Fully Assessed 02/21/2022 HISTORIES: PAST MEDICAL HISTORY Diagnosis Date COVID 08/13/2021 NEGATIVE MEDICAL HISTORY FAMILY HISTORY Problem Relation Age of Onset Hypertension Father Heart disease Father Diabetes Father Obstructive Sleep Apnea Father other (atrial fib) Father Diabetes Paternal Grandfather Heart disease Paternal Grandfather Social History Tobacco Use Smoking status: Current Every Day Smoker Packs/day: 1.00 Years: 25.00 Pack years: 25.00 Types: Cigarettes Smokeless tobacco: Never Used Vaping Use Vaping Use: Never used Substance Use Topics Alcohol use: Yes Comment: 0-1 monthly Drug use: Never REVIEW OF SYSTEMS: GENERAL: no malaise, no significant weight changes, no excessive daytime sleepiness, no reported snoring HEENT: no pallor, no flushing, no frequent headaches, no significant changes in vision, no nose bleeds RESPIRATORY: no cough, wheezing or shortness of breath CARDIAC: no chest pain or palpitations GI: no abdominal discomfort, no changes in bowel habits : no dysuria, frequency or incontinence MUSKULOSKELETAL: no joint pain or swelling, no muscle pain NEURO: no focal numbness or weakness, no tremors SKIN: no lesions, rash or itching. HEMATOLOGIC: no prolonged bleeding or bruising easily ENDO: no cold or heat intolerance, polyuria, polydipsia PHYSICAL EXAMINATION: BP 142/80 Pulse 85 Ht 5' 6.5 (1.69m) Wt 173 lb (78.5kg) SpO2 98% LMP 09/02/2021 BMI 27.51 kg/(m^2). General appearance: cooperative, in no acute distress,alert Skin: no rashes or lesions Neck: no bruit Lungs: clear to auscultation, no wheezing or rhonchi Heart: RRR without rubs Abdomen: soft, non-tender; no bruit Extremities: no edema Musculoskeletal: no joint swelling, deformity, or tenderness Peripheral pulses: equal, no radiofemoral delay Neuro: no asterixis or tremors ASSESSMENT /PLAN 1. Hypertension, essential - ICD9: 401.9, ICD10: I10 (primary diagnosis) - HGB A1C - TERESA SCREENING W LOLI - TSH BLD - T4 FREE/FREE THYROX - T3 BLD - HYDROCHLOROTHIAZIDE 25 MG TABLET - LIPID PANEL, NONFASTING - IRON + TIBC - FERRITIN BLD Goal BP: <130/80 Medication changes made today: begin 12.5mg HCTZ daily Lifestyle modifications discussed - Sodium restriction (handout given) - DASH diet (handout given) - Counseled on alcohol use - Weight management - Counseled on tobacco cessation Counseled regarding compliance with medications Counseled regarding avoidance of NSAIDs, and elevated blood pressures with some medications including nasal decongestants and oral contraceptives Advised home BP monitoring with arm cuff, correct technique discussed (handout given) and advised to bring in all medications (including pill bottles) and BP machine at next visit 2. Special screening examination for viral disease - ICD9: V73.99, ICD10: Z11.59 - HEP C AB IA W/CONF SCRN 3. Screening for HIV (human immunodeficiency virus) - ICD9: V73.89, ICD10: Z11.4 - HIV 1 2 COMBO(AG/AB),WITH REFLEX TO DIFFERENTIATION 4. Adenomyosis - ICD9: 617.0, ICD10: N80.0 - IRON + TIBC - FERRITIN BLD follow up in 2 weeks. Bing Clark DO, [facility] Specialized Women's Health Fellow February 22, 2022 documented in this encounterMer[facility] History of Past illness Narrative* Problem Noted Date Resolved Date Blood pressure elevated without history of HTN 0 02/21/2022 03/08/2022 Last Assessment & Plan: Assessment: appt 02/22 [facility] practice for elevated BP. NEGATIVE MEDICAL HISTORY 08/24/2021 022 documented as of this encounter (statuses as of 03/08/2022) [facility] History of Past illness Narrative* Problem Noted Date Resolved Date Blood pressure elevated without history of HTN 0 02/21/2022 03/08/2022 Last Assessment & Plan: Assessment: appt 02/22 [facility] practice for elevated BP. NEGATIVE MEDICAL HISTORY 08/24/2021 022 documented as of this encounter (statuses as of 03/22/2022) [facility] of Past illness Narrative* Problem Noted Date Resolved Date Blood pressure elevated without history of HTN 0 02/21/2022 03/08/2022 Last Assessment & Plan: Assessment: appt 02/22 [facility] practice for elevated BP. NEGATIVE MEDICAL HISTORY 08/24/2021 022 documented as of this encounter (statuses as of 04/24/2022) [facility] of Past illness Narrative* Problem Noted Date Resolved Date Blood pressure elevated without history of HTN 0 02/21/2022 03/08/2022 Last Assessment & Plan: Assessment: appt 02/22 [facility] practice for elevated BP. NEGATIVE MEDICAL HISTORY 08/24/2021 022 documented as of this encounter (statuses as of 05/03/2022) [facility] of Past illness Narrative* Problem Noted Date Resolved Date Blood pressure elevated without history of HTN 0 02/21/2022 03/08/2022 Last Assessment & Plan: Assessment: appt 02/22 [facility] practice for elevated BP. NEGATIVE MEDICAL HISTORY 08/24/2021 022 documented as of this encounter (statuses as of 06/07/2022) [facility] of Past illness Narrative* Problem Noted Date Resolved Date Blood pressure elevated without history of HTN 0 02/21/2022 03/08/2022 Last Assessment & Plan: Assessment: appt 02/22 [facility] practice for elevated BP. NEGATIVE MEDICAL HISTORY 08/24/2021 022 documented as of this encounter (statuses as of 07/03/2022) [facility] Instructions* Patient Instructions* Caity Carrazna PA-C - 02/21/2022 8:31 AM EDT PATIENT PREOPERATIVE INSTRUCTIONS Heron Silveira MD has scheduled you for your procedure at this surgery center: [facility]: [phone] --[id number] [id number]. Please check in on the1st floor at registration desk 6. Please read below carefully for your personalized instructions. Dietary Restrictions: - No solid food after midnight. - You may have 12 ounces of clear liquids (water, clear juices such as apple juice or gatorade, carbonated beverages, clear tea, black coffee, jello) until 2 hours before scheduled arrival at facility. Medications: Unless instructed differently below, stay on all of your medications until your surgery. Approved medications to take the morning of surgery with a sip of water: Nothing If you start any new medications after today's visit, please contact the surgeon's office. Blood Thinning Medications: - Stop NSAIDS (Ibuprofen, Advil, Aleve, Motrin, Celebrex, Mobic, etc.) 7 days before surgery, as directed by your surgeon. - Stop Aspirin 7 days before surgery, as directed by your surgeon. - Stop Vitamin E, ALL multi-vitamins, herbals and dietary supplements 7 days before surgery. - You may take Tylenol (Acetaminophen) or any of your pain medications that do not contain aspirin or NSAIDS as needed. Important Reminders: - Candy, mints, and tobacco products are NOT permitted the morning of surgery. - Hearing aids, dentures and glasses may be worn the morning of surgery. - NO jewelry, body piercings, makeup, hairpins or contacts are to be worn the day of surgery. If you develop symptoms such as a fever, cold, or flu, or have other changes to your health within TWO DAYS of scheduled surgery or the morning of surgery, please contact the surgery center above. Personal Belongings: -Please have photo ID and insurance cards. -If you do not have a copy of advance directives on file with us, please bring a copy with you on the day of surgery. - Leave ALL valuables and money at home or with family members. For Outpatient Procedures: - YOU MUST HAVE A RESPONSIBLE MIGRATION SPECIALIST TAKE YOU HOME. A CAMERA TUNING ENGINEER OR MILLWRIGHT HELPER CANNOT BE MADE A RESPONSIBLE MIGRATION SPECIALIST. - We recommend that a responsible person stays with you overnight to take care of you. - You cannot stay in a hotel alone after outpatient surgery. You will not be permitted to have yoursurgery, if you do not have someone to take care of you. Arrival Time for Surgery: - The Surgery Center or hospital where you are having surgery will call the afternoon before surgery (or Saturday for Saturday surgery) with a scheduled arrival time. - If you have not heard by 4 pm, please contact the surgery center above. Please be aware that emergency situations arise, which may delay or change your surgical time. If this happens, we will notify you as soon as possible and regret any inconvenience. If you already have an Advance Directive, please fax a copy to [phone] or email to for it to be added to your chart. If you do not have an Advance Directive, you can find the appropriate form and more information at [email or web address]. We recommend that youcomplete the Advance Directive form found on the website and bring it with you the day of your surgery. It can be witnessed and scanned into your chart that day. Caity Carranza PA-C documented in this encounterMercy [facility]22 History and physical note * Caity Carranza PA-C - 02/21/2022 8:12 AM EDT HISTORY AND PHYSICAL EXAMINATION SERVICE DATE: 02/21/2022 SERVICE TIME: 8:12 AM PRIMARY CARE PHYSICIAN: No primary care provider on file. REASON FOR VISIT: Rad Eli is a 41 year old female who is scheduled for ROBOTIC LAPAROSCOPIC TOTAL HYSTERECTOMY W/BSO UTERUS=>250G/ROBOTIC FULGURATION OR EXCISION OF LESIONS OF THE OVARY PELVIC VISCERA OR PERITONEAL SURFACE BY ANY METHOD at the request of Dr. Heron Chavarria for consultation. My final recommendation will be communicated back to the requesting physician by way of shared medical record or letter. The patient has the following: ACTIVE PROBLEM LIST Negative Medical History Endometriosis of Peritoneum Endometriosis of Right Ovary Adenomyosis Blood Pressure Elevated Without History of Htn Subjective CHIEF COMPLAINT: Pelvic pain HPI: 41 yo female HISTORY OF PRESENT ILLNESS: Rad Eli is a pleasant 41 year old female who presents with a history of endometriosus. Found to have endometriosus on admission to hospital 08/2021. She's had frequent pelvic pain, heavy menses and constipation.H/O heavy menses and anemia (which has been corrected). LMP was 08/2021 she denies . She underwent diagnostic laparoscopy at [facility] on 10/19/2021. She was scheduled for total laparoscopic hysterectomy. However it was found that she had a frozen posterior cul-de-sac with endometriosis involving both ovaries. She had some small endometriosis implants on her anterior cul-de-sac. The remainder of her peritonealcavity appeared clear and normal. IMAGIN08/28/2021 ultrasound RESULT: Uterus size: 14.2 x 7.6 x 9.2 cm -Orientation: Anteverted -Myometrium: There is a large fibroid in the fundus and distal uterine body measuring 8.6 x 6.6 x 7.8 cm. -Endometrial echo complex: Not visualized, likely due to large fibroid. Right ovary: Not visualized. Left ovary: 3.1 x 3.0 x 2.9 cm There are multiple complicated cysts with the largest one measuring 1.9 x 1.3 x 2.7 cm. Pelvis free fluid: No significant free fluid in the pelvis. Others: No hydronephrosis. IMPRESSION IMPRESSION: Large uterine fibroid. Complicated cysts in the left ovary. Right ovary not visualized. Consider follow-up. PAST MEDICAL HISTORY Diagnosis Date COVID 08/13/2021 NEGATIVE MEDICAL HISTORY PAST SURGICAL HISTORY Procedure Laterality Date BREAST LUMPECTOMY HX Left 2000 benign L'SCOPE DX W/WO BRUSHINGS/WASHINGS 10/19/2021 Diagnostic laparascopy - canceled [facility] due to endoemtriosis, frozen posterior cul de sac TONSILLECTOMY & ADENOIDECTOMY <AGE 12 WOUND CLOSURE 1998 right posterior arm plastic closure FAMILY HISTORY Problem Relation Age of Onset other (atrial fib) Father Hypertension Father SOCIAL HISTORY: Social History Tobacco Use Smoking status: Current Every Day Smoker Packs/day: 1.00 Years: 25.00 Pack years: 25.00 Types: Cigarettes Smokeless tobacco: Never Used Vaping Use Vaping Use: Never used Substance Use Topics Alcohol use: Yes Comment: 0-1 monthly Drug use: Never Prior to Admission medications as of 02/21/22 09 Medication Sig Last Dose Taking ibuprofen (ADVIL) 200 mg tablet Take 600 mg by mouth every 6 hours as needed. Taking Yes acetaminophen (TYLENOL) 325 mg cap Take by mouth. Taking Yes Multivitamin capsule Take 1 capsule by mouth once daily. Taking Yes No medication comments found. ALLERGIES Allergen Reactions Biaxin [Clarithromy* Anaphylaxis Ceclor [Cefaclor] Hives Sulfamethoxazole-Tr* Hives COVID VACCINATION STATUS: Not vaccinated H/O COVID 08/2021 recovered REVIEW OF SYSTEMS: PAIN ASSESSMENT: General: No weight loss, malaise or fevers. Neuro: Postive for Headaches AM frontal. No seizures/TIA/CVA. Respiratory: No history of current cough or dyspnea, or pneumonia in the past 6 weeks. No history of respiratory/pulmonary symptoms or problems. Cardiovascular: Positive for: Hypertension elevated today at [facility]. No chest pain/FERNANDO. No H/O murmur GI: No history of GI symptoms or problems. No history of esophageal varices, recent ascites, or ETOH greater than 2 drinks per day. 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 Endocrine: No history of diabetes. Has not taken steroids within the past 30 days. No history of endocrinological symptoms or problems. Hematology: Iron deficiency anemia IV iron tx 08/2021 no transfusion, took oral - no rx now. No blood dyscrasias Oncology: No history of CA metastasis, chemo within 30 days, or radiotherapy within 90 days. Has not lost 10% of body wt in 6 months. No history of oncological symptoms or problems. Psych: No history of psychiatric symptoms or problems. Musculoskeletal: Negative for joint pain or swelling, back pain or muscle pain. Skin: Negative for lesions, rash and itching. Objective PHYSICAL EXAM: VITALS: BP 170/91 Pulse 77 Temp (Src) 97.8 (Tympanic) Resp 16 Ht 5' 6.5 (1.69m) Wt 176 lb (79.8kg) SpO2 99% LMP 09/02/2021 BMI 27.98 kg/(m^2). General: Alert and oriented Skin: Normal color, no rash, no lesions. HEENT: EOM, pupils equal, round and reactive. Cardiovascular: Normal S1 & S2, no rubs, murmurs or gallops. No JVD. Pulse regular. Lungs: Normal breath sounds, no wheezes or crackles. Abdomen: Soft, non-tender, no rigidity. Extremities: No deformity, no edema or tenderness, no joint swelling or clubbing. Neurological: Normal cognition and motor skills. Pulses: Carotid and radial pulses normal +2. Diagnostic tests reviewed for today's visit: Lab Value Units Date High Low HB No results within date range. HCT No results within date range. WBC No results within date range. PLT No results within date range. NA No results within date range. K No results within date range. GLUC No results within date range. BUN No results within date range. CREAT No results within date range. PTSEC No results within date range. INR No results within date range. APTT No results within date range. ALT No results within date range. AST No results within date range. TBILI No results within date range. TSH No results within date range. Lab Value Units Date High Low HCGQT No results within date range. UHCG No results within date range. HCG, BODY* No results within date range. Lab Value Units Date High Low ABORHD No results within date range. ABSCREEN No results within date range. No results found for: HBA1C Most recent labs Most recent EKG: normal sinus rhythm, normal axis, in Epic Assessment/Plan Blood pressure elevated without history of HTN Assessment: appt 02/22 [facility] practice for elevated BP. METS: Climb a flight of stairs or walk up a hill (5.50 METs) Participate in moderate recreational activities, such as golf, bowling, dancing, doubles tennis, orthrowing a baseball or football (6.00 METs) ASA Class: 2 ANESTHESIA FINDINGS: Intubation History: No history of difficult intubation Significant Anesthesia Considerations: None Airway Exam: General: Normal appearance Mallampati Score is CLASS II ULBT: Class I - Lower incisors can bite the upper lip above the brice line Neck: Normal appearance and function, Distance from hyoid to mentum during neck extension is at least 3 finger breaths Mouth: Normal tongue size and Mouth opening greater than 2 finger breaths Dentition: Upper denture and Lower denture Airway History: No abnormal airway history Sleep Apnea Probability Snores loudly: No Tired, fatigued or sleepy in daytime: No Stops breathing or choking/gasping during sleep: No High blood pressure: No Sleep Apnea Probability Score 02/14/2022 Sleep Apnea Screen V2 5.95 (Sleep study not recommended) PLAN This patient is optimally prepared for surgery pending LABS and BP assessment at [facility] 02/22/2022. CONSULTS: [facility] practice for BP evaluation 02/22/2022. The Following Tests/Procedures Have Been Initiated: Orders Placed This Encounter CMP Standing Status: Future Number of Occurrences: 1 Standing Expiration Date: 04/23/2022 ibuprofen (ADVIL) 200 mg tablet Sig: Take 600 mg by mouth every 6 hours as needed. acetaminophen (TYLENOL) 325 mg cap Sig: Take by mouth. Planned Anesthetic: General Instructions Given to Patient: Instructions located in the after visit summary. Patient given verbal and written preop instructions and voices comprehension and compliance. SIGNATURE: Caity Carranza PA-C PATIENT NAME: Rad Eli DATE: February 21, 2022 TIME: 8:12 AM [facility] Miscellaneous Notes* [facility] - KIRSTIE Calderon - 02/12/2022 3:40 PM EDT Radiology Service Progress Note PATIENT NAME: aRd Eli DATE OF SERVICE: February 12, 2022 TIME: 5:21 PM PATIENT IDENTITY VERIFICATION COMPLETED USING TWO (2) IDENTIFIERS: Name and Date of confirmedby patient verbally and Name and Date of confirmed by identification band. FALL SCREENING: Has the patient had 2 falls in the last year or 1 fall with injury or currently using an Ambulatory Assistive Device (Walker, Cane, Wheelchair, Crutches, etc.)? No PATIENT GENDER DATA: Female. status: : No status: NO. PATIENT RELEVANT IMPLANT DATA REVIEWED: Yes RADIOLOGY DEPARTMENT: MR; Exam(s) Completed: Body: Female Pelvis PERIPHERAL IV DATA: Site assessment: Clean,Dry and Intact, Site disposition Discontinued SIGNED BY: KIRSTIE Calderon February 12, 2022 5:21 PM [facility] Nurse Note* Hussein Means RN - 02/12/2022 3:40 PM EDT Radiology Service Progress Note DATE OF SERVICE: February 12, 2022 TIME: 3:46 PM PATIENT WEIGHT: 155 LBS PATIENT IDENTITY VERIFICATION COMPLETED USING TWO (2) STANDARD IDENTIFIERS: Name and Date of confirmed by patient verbally. FALL SCREENING: Has the patient had 2 falls in the last year or 1 fall with injury or currently using an Ambulatory Assistive Device (Walker, Cane, Wheelchair, Crutches, etc.)? No PATIENT GENDER DATA: Female. status: : No status: NO. ALLERGIES: Reviewed and unchanged CONTRAST ALLERGY: No EXAM: MRI - CONTRAST TYPE: GROUP II IV SITE: Ambulatory: A peripheral IV was started in the Right forearm with a [employer] 22ga. IV SITE APPEARANCE: Clean,Dry and Intact SIGNATURE: Hussein Means RN PATIENT NAME: Rad Eli DATE: February 12, 2022 TIME: 3:46 PM [facility] Diagnosis Pre-op testing- Primary Preoperative examination, unspecified Endometriosis of right ovary Endometriosis of peritoneum Endometriosis of pelvic peritoneum Endometriosis of left ovary documented in this encounter [facility]* Diagnosis Endometriosis Endometriosis, site unspecified Endometriosis of right ovary Endometriosis of peritoneum Endometriosis of pelvic peritoneum Endometriosis of left ovary [facility]* Diagnosis Preop examination- Primary Preoperative examination, unspecified Endometriosis of peritoneum Endometriosis of pelvic peritoneum Blood pressure elevated without history of HTN Elevated blood pressure reading without diagnosis of hypertension Special screening examination for viral disease- Primary Special screening examination for unspecified viral disease Screening for HIV (human immunodeficiency virus) Special screening examination for other specified viral diseases Endometriosis of right ovary Endometriosis of peritoneum Endometriosis of pelvic peritoneum Endometriosis of left ovary documented in this encounter [facility]* Diagnosis Hypertension, essential- Primary Unspecified essential hypertension Special screening examination for viral disease Special screening examination for unspecified viral disease Screening for HIV (human immunodeficiency virus) Special screening examination for other specified viral diseases Adenomyosis Endometriosis of uterus Endometriosis of right ovary Endometriosis of peritoneum Endometriosis of pelvic peritoneum Endometriosis of left ovary documented in this encounter [facility] note* Diagnosis Educational circumstances- Primary Educational circumstance Endometriosis of right ovary Endometriosis of peritoneum Endometriosis of pelvic peritoneum Endometriosis of left ovary documented in this encounter [facility]* Diagnosis Endometriosis of right ovary- Primary Endometriosis of left ovary Endometriosis of peritoneum Endometriosis of pelvic peritoneum Pelvic pain in female Unspecified symptom associated with female genital organs Abnormal uterine bleeding (AUB) Endometriosis of right ovary Endometriosis of peritoneum Endometriosis of pelvic peritoneum Endometriosis of left ovary [facility]* Diagnosis Hypertension, essential- Primary Unspecified essential hypertension Endometriosis of right ovary Endometriosis of peritoneum Endometriosis of pelvic peritoneum Endometriosis of left ovary documented in this encounter [facility]* Diagnosis S/P hysterectomy- Primary Acquired absence of both cervix and uterus Post-operative state Other postprocedural status Endometriosis determined by laparoscopy Dysuria documented in this encounter [facility]* Diagnosis Endometriosis- Primary Endometriosis, site unspecified S/P hysterectomy Acquired absence of both cervix and uterus Post-operative state Other postprocedural status documented in this encounter [facility] note* Diagnosis Endometriosis Endometriosis, site unspecified S/P hysterectomy Acquired absence of both cervix and uterus Post-operative state Other postprocedural status [facility]* Diagnosis Hypertension, essential- Primary Unspecified essential hypertension Tobacco use disorder Dyshidrotic eczema Dyshidrosis Encounter for immunization Need for other specified prophylactic vaccination against single bacterial disease documented in this encounter [facility]* Diagnosis Hypertension, essential- Primary Unspecified essential hypertension [facility]* Diagnosis Kidney stone- Primary Calculus of kidney documented in this encounter [facility] note* Diagnosis Endometriosis Endometriosis, site unspecified S/P hysterectomy Acquired absence of both cervix and uterus Deep dyspareunia [facility]* Diagnosis Kidney stone Calculus of kidney [facility]* Diagnosis Kidney stone- Primary Calculus of kidney [facility]* Diagnosis Hypertension, essential Unspecified essential hypertension Renal calculus, right Calculus of kidney [facility]* Diagnosis Kidney stone- Primary Calculus of kidney [facility]* Diagnosis Pre-op exam [Z01.818 (ICD-10-CM)]- Primary Preoperative examination, unspecified Kidney stone [N20.0 (ICD-10-CM)] Calculus of kidney Primary hypertension [I10 (ICD-10-CM)] Unspecified essential hypertension Chronic pancreatitis, unspecified pancreatitis type (HCC) [K86.1 (ICD-10-CM)] [facility] Diagnosis Hypertension, essential- Primary Unspecified essential hypertension Tobacco use disorder Screening for lipid disorders Encounter for screening mammogram for malignant neoplasm of breast Other screening mammogram [facility]* Diagnosis Kidney stone- Primary Calculus of kidney [facility]* Diagnosis S/P hysterectomy Acquired absence of both cervix and uterus Endometriosis Endometriosis, site unspecified documented in this encounter [facility]* Diagnosis Hypertension, essential Unspecified essential hypertension [facility]* Diagnosis Wellness examination- Primary Screening for endocrine, metabolic and immunity disorder Hypertension, essential Unspecified essential hypertension Obesity (BMI 30.0-34.9) Obesity, unspecified Tobacco use disorder Skin lesion Unspecified disorder of skin and subcutaneous tissue Encounter for screening mammogram for malignant neoplasm of breast Other screening mammogram Keratosis pilaris Other specified congenital anomaly of skin Dense breast tissue [facility] Diagnostic Procedure Only (Routine) - Authorized Specialty Diagnoses / Procedures Referred By Nicole tee Referred To Contact BR IMAGING Diagnoses Hypertension, essential Procedures TERESA SCREENING W LOLI SCREENING DIGITAL BREAST TOMOSYNTHESIS BI SCREENING MAMMOGRAPHY BI 2-VIEW BREAST INC Bing Dinero DO [address] [place] [address] Br Imaging [address] [place] [address] Referral ID Status Reason Start Date Expiration Date Visits Requested Visits Authorized [id number] Authorized Auto-Generat ed Referral 02/22/2022 03/23/2023 1 1 [facility] for referral (narrative)* Diagnostic Procedure Only (Routine) - Pending Review Specialty Diagnoses / Procedures Referred By Nicole tee Referred To Contact XR IMAGING Diagnoses Kidney stone Procedures XR ABDOMEN 1V SUPINE RADIOLOGIC EXAM ABDOMEN 1 VIEW Spenser Pan Jr., MD [address] [place] [address] Xr Imaging Referral ID Status Reason Start Date Expiration Date Visits Requested Visits Authorized [id number] Pending Review Auto-Generat ed Referral 12/09/2022 12/08/2023 1 1 * MRI/CT (Routine) - Authorized Specialty Diagnoses / Procedures Referred By Contac t Referred To Contact CT IMAGING Diagnoses Kidney stone Procedures CT ABD/PEL WO IVCON CT ABD & PELVIS W/O CONTRAST Spenser Pan Jr., MD [address] [place] [address] Ct Imaging Referral ID Status Reason Start Date Expiration Date Visits Requested Visits Authorized [id number] Authorized Auto-Generat ed Referral 12/09/2022 12/08/2023 1 1 [facility] for referral (narrative)* Diagnostic Procedure Only (Routine) - Pending Review Specialty Diagnoses / Procedures Referred By Contac t Referred To Contact XR IMAGING Diagnoses Kidney stone Procedures XR ABDOMEN 1V SUPINE RADIOLOGIC EXAM ABDOMEN 1 VIEW Spenser Pan Jr., MD [address] [place] [id number] Xr Imaging Referral ID Status Reason Start Date Expiration Date Visits Requested Visits Authorized [id number] Pending Review Auto-Generat ed Referral 11/29/2022 12/29/2023 1 1 [facility] for referral (narrative)* Diagnostic Procedure Only (Routine) - Pending Review Specialty Diagnoses / Procedures Referred By Contac t Referred To Contact XR IMAGING Diagnoses Kidney stone Procedures XR ABDOMEN 1V SUPINE RADIOLOGIC EXAM ABDOMEN 1 VIEW Spenser Pan Jr., MD [address] [place] [id number] Xr Imaging Referral ID Status Reason Start Date Expiration Date Visits Requested Visits Authorized [id number] Pending Review Auto-Generat ed Referral 01/11/2023 02/10/2024 1 1 [facility] for referral (narrative)* Diagnostic Procedure Only (Routine) - Pending Review Specialty Diagnoses / Procedures Referred By Nicole t Referred To Contact BR IMAGING Diagnoses Encounter for screening mammogram for malignant neoplasm of breast Procedures TERESA SCREENING W LOLI SCREENING DIGITAL BREAST TOMOSYNTHESIS BI SCREENING MAMMOGRAPHY BI 2-VIEW BREAST INC [facility] Fernando Yepez DO [address] [place] [address] Br Imaging [address] [place] [address] Referral ID Status Reason Start Date Expiration Date Visits Requested Visits Authorized [id number] Pending Review Auto-Generat ed Referral 01/16/2023 02/15/2024 1 1 [facility] for referral (narrative)* Diagnostic Procedure Only (Routine) - Pending Review Specialty Diagnoses / Procedures Referred By Nicole t Referred To Contact XR IMAGING Diagnoses Kidney stone Procedures XR ABDOMEN 1V SUPINE RADIOLOGIC EXAM ABDOMEN 1 VIEW Spenser Pan Jr., MD [address] [place] [address] Xr Imaging Referral ID Status Reason Start Date Expiration Date Visits Requested Visits Authorized [id number] Pending Review Auto-Generat ed Referral 02/08/2024 03/08/2024 1 1 [facility] for referral (narrative)* Diagnostic Procedure Only (Routine) - Authorized Specialty Diagnoses / Procedures Referred By Nicole tee Referred To Contact BR IMAGING Diagnoses Encounter for screening mammogram for malignant neoplasm of breast Dense breast tissue Procedures TERESA SCREENING W LOLI SCREENING DIGITAL BREAST TOMOSYNTHESIS BI SCREENING MAMMOGRAPHY BI 2-VIEW BREAST INC CAD LuchoFernando simmons DO [address] [place] [address] Br Imaging [address] [place] [address] Referral ID Status Reason Start Date Expiration Date Visits Requested Visits Authorized [id number] Authorized Auto-Generat ed Referral 12/20/2023 01/18/2025 1 1 [facility] Advance Directives No Advanced Directives Records FoundDocuments on File Type Date Recorded Patient Fish Salter Expl 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 Advance Directive(s) 08/13/2021 3:41 PM Advance Directive(s) 09/11/2019 2:07 PM Documents on File Type Date Recorded Patient Fish Salter Expl anation Advance Directive(s) 08/13/2021 3:41 PM Advance Directive(s) 09/11/2019 2:07 PM Documents on File Type Date Recorded Patient Fish Salter Expl anation Advance Directive(s) 02/21/2022 9:30 AM Advance Directive(s) 08/13/2021 3:41 PM Advance Directive(s) 09/11/2019 2:07 PM Documents on File Type Date Recorded Patient Fish Salter Expl anation Advance Directive(s) 02/21/2022 9:30 AM Advance Directive(s) 08/13/2021 3:41 PM Advance Directive(s) 09/11/2019 2:07 PM Reason for Referral Specialty Diagnoses / Procedures Referred By Contac t Referred To Contact MR IMAGING Diagnoses Endometriosis Procedures MRI FEMALE PELVIS WO/W IVCON MRI PELVIS W/WO CONTRAST Heron Silveira MD [address] [place] [address] Mr Imaging Referral ID Status Reason Start Date Expiration Date V isits Requested Visits Authorized [id number] Closed Auto-Generate d Referral 10/24/2021 11/23/2022 1 1 Specialty Diagnoses / Procedures Referred By Contac t Referred To Contact [facility] Diagnoses Deep dyspareunia Procedures CONSULT TO PHYSICAL THERAPY PHYSICAL THERAPY EVALUATION HIGH COMPLEX 45 MINS Heron Silveira MD [address] [place] [address] [facility] [address] [address] Referral ID Status Reason Start Date Expiration Date Visits Requested Visits Authorized [id number] Pending Review Auto-Generat ed Referral 11/13/2022 11/13/2023 1 1 Specialty Diagnoses / Procedures Referred By Nicole t Referred To Contact CT IMAGING Diagnoses Kidney stone Procedures CT ABD/PEL WO IVCON CT ABD & PELVIS W/O CONTRAST Spenser Pan Jr., MD [address] [place] [address] Ct Imaging Referral ID Status Reason Start Date Expiration Date V isits Requested Visits Authorized [id number] Closed Auto-Generate d Referral 12/09/2022 12/08/2023 1 1 Summary Purpose Family History No Family History Records FoundNo Family History Records FoundNo Family History Records FoundNo Family History Records Found Medications Administered Section Inactive Administered Medications - up to 3 most recent administrations Medication Order MAR Action Action Date Dose Rate Site acetaminophen 300 mg - codeine 30 mg tablet (TYLENOL #3) 2 tablet, ORAL, NEEDED, 1 dose, Starting on Sat01/11/23 at 1130, Until Sat01/11/23 at 1159, Moderate Pain (4-6) - Enteral, If no acetaminophen given in the last 6 hours, Recovery or Phase I (only) Given 01/11/2023 11:59 AM EDT 2 tablets fentaNYL 50 mcg/mL 50 mcg injection (SUBLIMAZE) 50 mcg, INTRAVENOUS, EVERY 5 MINUTES NEEDED, 2 doses, Starting on Sat01/11/23 at 1130, Until 01/12/23 at 0303, FIRST LINE THERAPY for pain score 1 or greater, Every 5 minutes. Use if patient unable to tolerate oral therapy. Hold for respiratory rate less than 12 Max total dose: 100 mcg, Recovery or Phase I (only) HYDROmorphone (PF) 0.5 mg injection (DILAUDID) 0.5 mg, INTRAVENOUS, EVERY 10 MINUTES NEEDED, 4 doses, Starting on Sat01/11/23 at 1130, Until 01/12/23 at 0303, SECOND LINE THERAPY for pain score 1 or greater, Every 10 minutes. Use if patient unable to tolerate oral therapy. Hold for respiratory rate less than 12 Max total dose: 2 mg, Recovery or Phase I (only) lactated ringers iv infusion 125 mL/hr, INTRAVENOUS, CONTINUOUS, Starting on Sat01/11/23 at 1200, Until 01/12/23 at 0303, Recovery or Phase I (only) Rate Verify 01/11/2023 11:30 AM EDT 125 mL/hr 125 mL/hr ondansetron (PF) 4 mg injection (ZOFRAN) 4 mg, INTRAVENOUS, NEEDED, 1 dose, Starting on 01/11/23 at 1130, Until 01/12/23 at 0303, Nausea/Vomiting - First Line - Parenteral, Give IV push over 2 minutes. If still nauseated 10 min after first line antiemetic dose, proceed to second line antiemetic, Recovery or Phase I (only) Additional Source Comments Source Comments (unrecognize d section and content) In the event this informatio n is protected by the Federal Confidentiality of Alcohol and Drug Abuse Patient Records regulations: The Federal rules restrict any use of the information to criminally investigate or prosecute any alcohol or drug abuse patient.[facility] the event this information is protected by the Federal Confidentiality of Alcohol and Drug Abuse Patient Records regulations: The Federal rules restrict any use of the information to criminally investigate or prosecute any alcohol or drug abuse patient.[facility] the event this information is protected by the Federal Confidentiality of Alcohol and Drug Abuse Patient Records regulations: The Federal rules restrict any use of the information to criminally investigate or prosecute any alcohol or drug abuse patient.[facility] the event this information is protected by the Federal Confidentiality of Alcohol and Drug Abuse Patient Records regulations: The Federal rules restrict any use of the information to criminally investigate or prosecute any alcohol or drug abuse patient.[facility] Hospital[facility] the event this information is protected by the Federal Confidentiality of Alcohol and Drug Abuse Patient Records regulations: The Federal rules restrict any use of the information to criminally investigate or prosecute any alcohol or drug abuse patient.[facility] the event this information is protected by the Federal Confidentiality of Alcohol and Drug Abuse Patient Records regulations: The Federal rules restrict any use of the information to criminally investigate or prosecute any alcohol or drug abuse patient.[facility] the event this information is protected by the Federal Confidentiality of Alcohol and Drug Abuse Patient Records regulations: The Federal rules restrict any use of the information to criminally investigate or prosecute any alcohol or drug abuse patient.[facility] the event this information is protected by the Federal Confidentiality of Alcohol and Drug Abuse Patient Records regulations: The Federal rules restrict any use of the information to criminally investigate or prosecute any alcohol or drug abuse patient.[facility] the event this information is protected by the Federal Confidentiality of Alcohol and Drug Abuse Patient Records regulations: The Federal rules restrict any use of the information to criminally investigate or prosecute any alcohol or drug abuse patient.[facility] the event this information is protected by the Federal Confidentiality of Alcohol and Drug Abuse Patient Records regulations: The Federal rules restrict any use of the information to criminally investigate or prosecute any alcohol or drug abuse patient.[facility] the event this information is protected by the Federal Confidentiality of Alcohol and Drug Abuse Patient Records regulations: The Federal rules restrict any use of the information to criminally investigate or prosecute any alcohol or drug abuse patient.[facility] Hospital[facility] the event this information is protected by the Federal Confidentiality of Alcohol and Drug Abuse Patient Records regulations: The Federal rules restrict any use of the information to criminally investigate or prosecute any alcohol or drug abuse patient.[facility] Hospital[facility] the event this information is protected by the Federal Confidentiality of Alcohol and Drug Abuse Patient Records regulations: The Federal rules restrict any use of the information to criminally investigate or prosecute any alcohol or drug abuse patient.[facility] Hospital[facility] the event this information is protected by the Federal Confidentiality of Alcohol and Drug Abuse Patient Records regulations: The Federal rules restrict any use of the information to criminally investigate or prosecute any alcohol or drug abuse patient.[facility] Hospital[facility] the event this information is protected by the Federal Confidentiality of Alcohol and Drug Abuse Patient Records regulations: The Federal rules restrict any use of the information to criminally investigate or prosecute any alcohol or drug abuse patient.[facility] Hospital[facility] the event this information is protected by the Federal Confidentiality of Alcohol and Drug Abuse Patient Records regulations: The Federal rules restrict any use of the information to criminally investigate or prosecute any alcohol or drug abuse patient.[facility] Hospital[facility] the event this information is protected by the Federal Confidentiality of Alcohol and Drug Abuse Patient Records regulations: The Federal rules restrict any use of the information to criminally investigate or prosecute any alcohol or drug abuse patient.[facility] Hospital[facility] the event this information is protected by the Federal Confidentiality of Alcohol and Drug Abuse Patient Records regulations: The Federal rules restrict any use of the information to criminally investigate or prosecute any alcohol or drug abuse patient.[facility] HospitalIn the event this information is protected by the Federal Confidentiality of Alcohol and Drug Abuse Patient Records regulations: The Federal rules restrict any use of the information to criminally investigate or prosecute any alcohol or drug abuse patient.[facility] HospitalIn the event this information is protected by the Federal Confidentiality of Alcohol and Drug Abuse Patient Records regulations: The Federal rules restrict any use of the information to criminally investigate or prosecute any alcohol or drug abuse patient.[facility] HospitalIn the event this information is protected by the Federal Confidentiality of Alcohol and Drug Abuse Patient Records regulations: The Federal rules restrict any use of the information to criminally investigate or prosecute any alcohol or drug abuse patient.[facility] HospitalIn the event this information is protected by the Federal Confidentiality of Alcohol and Drug Abuse Patient Records regulations: The Federal rules restrict any use of the information to criminally investigate or prosecute any alcohol or drug abuse patient.[facility] HospitalIn the event this information is protected by the Federal Confidentiality of Alcohol and Drug Abuse Patient Records regulations: The Federal rules restrict any use of the information to criminally investigate or prosecute any alcohol or drug abuse patient.[facility] HospitalIn the event this information is protected by the Federal Confidentiality of Alcohol and Drug Abuse Patient Records regulations: The Federal rules restrict any use of the information to criminally investigate or prosecute any alcohol or drug abuse patient.[facility] HospitalIn the event this information is protected by the Federal Confidentiality of Alcohol and Drug Abuse Patient Records regulations: The Federal rules restrict any use of the information to criminally investigate or prosecute any alcohol or drug abuse patient.[facility] HospitalIn the event this information is protected by the Federal Confidentiality of Alcohol and Drug Abuse Patient Records regulations: The Federal rules restrict any use of the information to criminally investigate or prosecute any alcohol or drug abuse patient.[facility] HospitalIn the event this information is protected by the Federal Confidentiality of Alcohol and Drug Abuse Patient Records regulations: The Federal rules restrict any use of the information to criminally investigate or prosecute any alcohol or drug abuse patient.[facility] HospitalIn the event this information is protected by the Federal Confidentiality of Alcohol and Drug Abuse Patient Records regulations: The Federal rules restrict any use of the information to criminally investigate or prosecute any alcohol or drug abuse patient.[facility] Reason for Visit (unrecogniz ed section and content) Referral ID Status Reason Start Date Expiration Date V isits Requested Visits Authorized [id number] Closed Auto-Generate d Referral 10/24/2021 11/23/2022 1 1 Reason Comments Anesthesia Consult endometriosus Reason Comments Blood Pressure Reason Onset Date Comments Pre-Op Teaching 03/01/2022 Reason Comments Pre-Op Visit Reason Comments Hypertension Reason Comments Post-Op Visit Reason Comments Post Op Reason Onset Date Comments Refill Request 06/04/2022 Reason Comments New Patient Hypertension Reason Comments Blood Pressure Check Reason Comments Kidney Stones Reason Comments Follow Up Specialty Diagnoses / Procedures Referred By Contac t Referred To Contact CT IMAGING Diagnoses Kidney stone Procedures CT ABD/PEL WO IVCON CT ABD & PELVIS W/O CONTRAST Spenser Pan Jr., MD [address] [place] [address] Ct Imaging Referral ID Status Reason Start Date Expiration Date V isits Requested Visits Authorized [id number] Closed Auto-Generate d Referral 12/09/2022 12/08/2023 1 1 Reason Comments Kidney Stones Reason Comments Appointment Specialty Diagnoses / Procedures Referred By Nicole t Referred To Contact Diagnoses Renal calculus, right Procedures LITHOTRIPSY XTRCORP SHOCK WAVE EXTRACORPOREAL SHOCKWAVE LITHOTRIPSY UNILATERAL [facility] [address] [place] [address] Referral ID Status Reason Start Date Expiration Date Visits Re quested Visits Authorized [id number] 1 1 Reason Comments Post-Op Visit Reason Comments Follow Up Reason Comments Physical INFORMATION SOURCE (unrecogn ized section and content) DATE CREATED AUTHOR AUTHOR'S ORGANIZ ATION 04/20/2022 [facility] DATE CREATED AUTHOR AUTHOR'S ORGANIZ ATION 12/20/2023 [facility] DATE CREATED AUTHOR AUTHOR'S ORGANIZ ATION 12/21/2023 [facility] Care Teams (unrecognized sec tion and content) Software Development Advisor Relationship Specialty Start Date End Date [facility] [address] [place] [address] PCP - General Family Medicine 07/18/22 Software Development Advisor Relationship Specialty Start Date End Date [facility] [address] [place] [address] PCP - General Family Medicine 07/18/22 Software Development Advisor Relationship Specialty Start Date End Date [facility] [address] [place] [address] PCP - General Family Medicine 07/18/22 Software Development Advisor Relationship Specialty Start Date End Date [facility] [address] [place] [address] PCP - General Family Medicine 07/18/22 Software Development Advisor Relationship Specialty Start Date End Date [facility] [address] [place] [address] PCP - General Family Medicine 07/18/22 Software Development Advisor Relationship Specialty Start Date End Date [address] [address] PCP - General Family Medicine 07/18/22 Software Development Advisor Relationship Specialty Start Date End Date Fernando Yepez DO [address] [place] [address] PCP - General Family Medicine 07/18/22 Software Development Advisor Relationship Specialty Start Date End Date Fernando Yepez DO [address] [place] [address] PCP - General Family Medicine 07/18/22 Software Development Advisor Relationship Specialty Start Date End Date Fernando Yepez DO [address] [place] [address] PCP - General Family Medicine 07/18/22 Software Development Advisor Relationship Specialty Start Date End Date Fernando Yepez DO [address] [place] [address] PCP - General Family Medicine 07/18/22 Software Development Advisor Relationship Specialty Start Date End Date Lucho Fernando [address] [place] [address] PCP - General Family Medicine 07/18/22 Software Development Advisor Relationship Specialty Start Date End Date Lucho FernandoDO [address] [place] [address] PCP - General Family Medicine 07/18/22 Software Development Advisor Relationship Specialty Start Date End Date Lucho Fernando, DO [address] [place] [address] PCP - General Family Medicine 07/18/22 Software Development Advisor Relationship Specialty Start Date End Date Lucho Fernando, [address] [place] [address] PCP - General Family Medicine 07/18/22 Software Development Advisor Relationship Specialty Start Date End Date Fernando Yepez DO [address] [place] [address] PCP - General Family Medicine 07/18/22 Continuous Active and Recently Administ ered Medications (unrecognized section and content) PRN Medication Order 01/09/2023 01/10/2023 01/11/2023 acetaminophen 300 mg - codeine 30 mg tablet (TYLENOL #3) (COMPLETED) 2 tablet, ORAL, NEEDED, 1 dose, Starting on Sat01/11/23 at 1130, Until Discontinued, Moderate Pain (4-6) - Enteral, If no acetaminophen given in the last 6 hours, Recovery or Phase I (only) 1159 (Given - Provid er: Josee Willson RN) fentaNYL 50 mcg/mL 50 mcg injection (SUBLIMAZE) 50 mcg, INTRAVENOUS, EVERY 5 MINUTES NEEDED, 2 doses, Starting on Sat01/11/23 at 1130, Until 01/12/23 at 0303, FIRST LINE THERAPY for pain score 1 or greater, Every 5 minutes. Use if patient unable to tolerate oral therapy. Hold for respiratory rate less than 12 Max total dose: 100 mcg, Recovery or Phase I (only) HYDROmorphone (PF) 0.5 mg injection (DILAUDID) 0.5 mg, INTRAVENOUS, EVERY 10 MINUTES NEEDED, 4 doses, Starting on Sat01/11/23 at 1130, Until 01/12/23 at 0303, SECOND LINE THERAPY for pain score 1 or greater, Every 10 minutes. Use if patient unable to tolerate oral therapy. Hold for respiratory rate less than 12 Max total dose: 2 mg, Recovery or Phase I (only) ondansetron (PF) 4 mg injection (ZOFRAN) 4 mg, INTRAVENOUS, NEEDED, 1 dose, Starting on Sat01/11/23 at 1130, Until 01/12/23 at 0303, Nausea/Vomiting - First Line - Parenteral, Give IV push over 2 minutes. If still nauseated 10 min after first line antiemetic dose, proceed to second line antiemetic, Recovery or Phase I (only) FOR RECORDS PERTAINING TO PATIENTS WHO ARE OR HAVE BEEN ENROLLED IN A CHEMICAL DEPENDENCY/SUBSTANCEABUSE PROGRAM, SOME INFORMATION MAY BE OMITTED. This clinical summary was aggregated from multiple sources. Caution should be exercised in using it in the provision of clinical care. This summary normalizes information from multiple sources, and as a consequence, information in this document may materially change the coding, format and clinical context of patient data. In addition, data may be omitted in some cases. CLINICAL DECISIONS SHOULD BE BASED ON THE PRIMARY CLINICAL RECORDS. [facility] [employer] [facility] provides no warranty or guarantee of the accuracy or completeness of information in this document.
== END | disposition home or self-care (01) ==
PROVIDERS: Referring Provider Internal Medicine Gastroenterology; Visit Provider Internal Medicine Gastroenterology
DX: N20.0 Calculus of kidney (principal); Z87.19 Personal history of other diseases of the digestive system; R10.13 Epigastric pain; K59.00 Constipation, unspecified
CPT/HCPCS: 81050

== ENCOUNTER → 2024-06-12 | Outpatient (CLI) | payer OTHER, SELFPAY ==
[2024-06-12 09:08] LABS: Absolute Lymphocyte Count 1.47 X10^3/uL (0.83-4.51); Absolute Neutrophil Count 5.4 X10^3/uL (2.0-7.7); Basophil# 0.03 X10^3/uL; Basophil% 0.4 % (0-1); Eosinophils% 1.3 % (0-5); Hematocrit 46.4 % (37-47); Hemoglobin 15.2 g/dL (12.0-15.0); Lymphocyte # 1.47 X10^3/ul (0.83-4.51); Lymphocyte % 19.6 % (19-41); Mean Corp Hgb Conc 32.8 g/dL (32-36); Mean Corpuscular Hgb 29.7 pg (27.0-32.0); Mean Corpuscular Volume 90.6 fL (81-99); Mean Platelet Vol. 8.9 fl (6.2-12.0); Monocyte# 0.52 X10^3/uL; Monocyte% 6.9 % (0-10); NRBC Flagged by Analyzer 0 % (0-5); Neutrophil # 5.35 X10^3/uL (2.7-7.7); Neutrophil % 71.5 % (47-70); Platelet Count 317 K/mm3 (150-450); RBC Distribution Width CV 12.7 % (11.6-14.6); RBC Distribution Width SD 42.3 fl (35.1-43.9); Red Blood Count 5.12 M/mm3 (4.2-5.4); White Blood Count 7.5 K/mm3 (4.4-11.0)
[2024-06-12 09:36] LABS: Erythrocyte Sedimentation Rate 23 mm/hr (0-30)
[2024-06-12 09:42] LABS: Amylase 67 U/L (25-115); CRP 4.28 mg/L (0.0-3.0); Lipase 39 U/L (13-75)
[2024-06-16 05:07] LABS: CA 15-3 14.1 U/mL (0.0-25.0)
== END | disposition home or self-care (01) ==
LOC: LAB 08:15
PROVIDERS: Referring Provider Internal Medicine Gastroenterology; Visit Provider Internal Medicine Gastroenterology
DX: K86.1 Other chronic pancreatitis (principal)
CPT/HCPCS: 36415; 82150; 83690; 85025; 85652; 86140; 86300

== ENCOUNTER → 2024-07-08 | Outpatient (CLI) | payer OTHER, SELFPAY ==
--- NOTE | 2024-07-08 07:27 | MRI_ITS ---
EXAM: MR ABDOMEN WITHOUT INTRAVENOUS CONTRAST, MRCP PROTOCOL CLINICAL INDICATION: pancreatitis TECHNIQUE: Multiplanar and multisequence MR images of the abdomen without intravenous contrast obtained with MRCP sequence. Three-dimensional post-processing reconstructions were performed. COMPARISON: MR MRCP dated 09/17/2022 FINDINGS: LOWER THORAX: Normal. No pleural effusion. LIVER: Normal. Normal morphology. GALLBLADDER AND BILE DUCTS: Normal. No gallstones. No gallbladder distention or wall edema. No intra- or extrahepatic biliary ductal dilation. No choledochal filling defect. PANCREAS: No focal cystic mass. No pancreatic duct dilation. No evidence of acute pancreatitis. SPLEEN: Normal. Non-enlarged. ADRENALS: Normal. No nodules. KIDNEYS AND URETERS: Normal. Normal renal size and position. No hydronephrosis. INTRAPERITONEAL SPACE: Normal. No ascites or other fluid collection. VASCULATURE: Normal. Abdominal aorta is non-dilated. LYMPH NODES: No enlarged lymph nodes. MRI/MRCP Abdomen without Contrast IMPRESSION: Normal MRCP. No evidence of acute pancreatitis. Electronically Signed: Kirk Duong MD at 8:13 EDT ,
== END | disposition home or self-care (01) ==
LOC: MRI 07:18
PROVIDERS: Referring Provider Internal Medicine Gastroenterology; Visit Provider Internal Medicine Gastroenterology
DX: K86.1 Other chronic pancreatitis (principal)
CPT/HCPCS: 74181

== ENCOUNTER → 2024-08-17 | Outpatient (CLI) | payer OTHER, SELFPAY | END | disposition home or self-care (01) | PROVIDERS: Referring Provider Internal Medicine Gastroenterology; Visit Provider Internal Medicine Gastroenterology | DX: K86.1 Other chronic pancreatitis (principal) | CPT/HCPCS: 36415 ==